=== PATIENT | female | born 1970 | race Caucasian/White ===

== ENCOUNTER 2017-11-11 12:00 | Inpatient (IN) ==
[2017-11-11] MEDS ORDERED: GLUCAGON 1 MG VIAL IM PRN (13:30)
[2017-11-11] MEDS ORDERED: ACETAMINOPHEN 325 MG TABLET PO PRN (13:30)
[2017-11-11] MEDS: INSULIN REGULAR 100 UNIT/ML SUBCUT SCH ×2 (16:41→20:27)
[2017-11-11] MEDS: PIPERACILLIN/TAZOBACTAM 3,375 MG in SODIUM CHLORIDE 0.9% 100 ML IV SCH (17:01)
[2017-11-11] MEDS: SODIUM CHLORIDE 0.45% 1,000 ML IV SCH (17:11)
[2017-11-11] MEDS: GABAPENTIN 400 MG CAPSULE PO SCH ×2 (17:13→20:26)
[2017-11-11] MEDS: MORPHINE 2 MG/1 ML SYRINGE IV PRN ×2 (17:14→23:10)
[2017-11-11] MEDS: INSULIN ASPART PROTAMINE/ASPART 70/30 100 UNIT/ML SUBCUT SCH (20:27)
[2017-11-11] MEDS: DOCUSATE SODIUM 100 MG CAPSULE PO SCH (20:27)
[2017-11-11] MEDS ORDERED: GABAPENTIN 400 MG CAPSULE PO SCH (21:00)
[2017-11-11] MEDS: ZALEPLON 5 MG CAPSULE PO PRN (22:33)
[2017-11-12] MEDS: PIPERACILLIN/TAZOBACTAM 3,375 MG in SODIUM CHLORIDE 0.9% 100 ML IV SCH ×3 (00:15→17:14)
[2017-11-12] MEDS: VANCOMYCIN INJ 1,000 MG in SODIUM CHLORIDE 0.9% 250 ML IV SCH ×2 (04:09→16:32)
[2017-11-12] MEDS: MORPHINE 2 MG/1 ML SYRINGE IV PRN ×4 (05:16→22:01)
[2017-11-12 06:03] LABS: Basophils # 0.1 10*3/uL (0.0-0.2); Basophils % 0.2 % (0.0-0.8); Eosinophils # 0.1 10*3/uL (0.0-0.87); Eosinophils % 0.2 % (0.00-10.9); Hematocrit 29.9 VOL% (35.7-47.0); Hemoglobin 9.9 GM/DL (12.0-16.0); Immature Granulocytes % 1.8 %; Immature Granulocytes Absolute 0.51 #; Lymphocytes # 5.2 10*3/uL (1.4-4.0); Lymphocytes % 17.7 % (21.3-54.2); Mean Corpuscular HGB Conc 33.1 GM/DL (32-36); Mean Corpuscular Hemoglobin 29 PG (27-34); Mean Corpuscular Volume 88.2 FL (87-102); Mean Platelet Volume 10.5 FL (9.6-12.0); Monocytes # 1.7 10*3/uL (0.11-0.8); Monocytes % 5.8 % (1.7-12.7); Neutrophils # 21.6 10*3/uL (1.4-7.4); Neutrophils % 74.3 % (38.7-73.9); Platelet Count 506 T/CUMM (130-400); Red Blood Count 3.39 MC/CUMM (3.8-5.5); Red Cell Distribution Width 14.4 % (9.3-17.3); White Blood Count 29.1 T/CUMM (4-12)
[2017-11-12 06:25] LABS: Anisocytosis 1+
[2017-11-12 06:26] LABS: Howell-Jolly Bodies 1+; Target Cells Slight
[2017-11-12 06:27] LABS: Polychromasia Slight
[2017-11-12 06:31] LABS: Magnesium 1.8 MG/DL (1.8-2.4); Risk Ratio 4.03; VLDL CHOLESTEROL 35.8 MG/DL
[2017-11-12] MEDS: DOCUSATE SODIUM 100 MG CAPSULE PO SCH ×2 (08:14→20:58)
[2017-11-12] MEDS: INSULIN REGULAR 100 UNIT/ML SUBCUT SCH ×4 (08:14→20:59)
[2017-11-12] MEDS: GABAPENTIN 400 MG CAPSULE PO SCH ×3 (08:14→20:59)
[2017-11-12] MEDS: SODIUM CHLORIDE 0.45% 1,000 ML IV SCH ×3 (08:14→22:08)
[2017-11-12] MEDS: PANTOPRAZOLE 40 MG TABLET PO SCH (08:15)
[2017-11-12] MEDS: INSULIN ASPART PROTAMINE/ASPART 70/30 100 UNIT/ML SUBCUT SCH ×2 (08:15→20:59)
[2017-11-12] MEDS: LISINOPRIL 20 MG TABLET PO SCH (08:32)
[2017-11-12] MEDS: HYDROmorphone 2 MG/1 ML VIAL IV PRN ×4 (11:35→11:50)
[2017-11-12] MEDS ORDERED: HYDROmorphone 2 MG/1 ML VIAL ONE (11:36)
[2017-11-12] MEDS ORDERED: ONDANSETRON 4 MG/2 ML VIAL ONE (11:36)
[2017-11-12] MEDS ORDERED: MIDAZOLAM 2 MG/2 ML VIAL ONE (11:40)
[2017-11-12] MEDS ORDERED: ONDANSETRON 4 MG/2 ML VIAL IV PRN (11:40)
[2017-11-12] MEDS ORDERED: PROPOFOL 200 MG/20 ML VIAL IV ONE (11:40)
[2017-11-12] MEDS ORDERED: fentaNYL 100 MCG/2 ML VIAL ONE (11:40)
[2017-11-12] MEDS ORDERED: SEVOFLURANE 1 UNIT/15 MINUTE INH ONE (11:40)
[2017-11-12] MEDS ORDERED: METOCLOPRAMIDE 10 MG/2 ML VIAL ONE (11:41)
[2017-11-12 16:10] LABS: Barbiturates Screen,Urine Negative (Negative); Benzodiazepines Screen,Urine Positive (Negative); Cannabinoid Screen,Urine Negative (Negative); Opiate Screen,Urine Positive (Negative); Phencyclidine Screen,Urine Negative (Negative)
[2017-11-12] MEDS: ZALEPLON 5 MG CAPSULE PO PRN (20:59)
[2017-11-12] MEDS: diphenhydrAMINE CAP 25 MG CAPSULE PO PRN (22:06)
[2017-11-13] MEDS: PIPERACILLIN/TAZOBACTAM 3,375 MG in SODIUM CHLORIDE 0.9% 100 ML IV SCH ×3 (00:57→19:34)
[2017-11-13] MEDS: MORPHINE 2 MG/1 ML SYRINGE IV PRN ×6 (03:17→22:13)
[2017-11-13] MEDS: ONDANSETRON 4 MG/2 ML VIAL IV PRN (03:25)
[2017-11-13 03:32] LABS: Basophils # 0.1 10*3/uL (0.0-0.2); Basophils % 0.4 % (0.0-0.8); Eosinophils # 0.1 10*3/uL (0.0-0.87); Eosinophils % 0.5 % (0.00-10.9); Hematocrit 28.4 VOL% (35.7-47.0); Hemoglobin 9.2 GM/DL (12.0-16.0); Immature Granulocytes % 1.9 %; Immature Granulocytes Absolute 0.51 #; Lymphocytes # 6.6 10*3/uL (1.4-4.0); Lymphocytes % 24.7 % (21.3-54.2); Mean Corpuscular HGB Conc 32.4 GM/DL (32-36); Mean Corpuscular Hemoglobin 29 PG (27-34); Mean Corpuscular Volume 90.4 FL (87-102); Monocytes # 1.7 10*3/uL (0.11-0.8); Monocytes % 6.5 % (1.7-12.7); NRBC # 0.02 10*3/uL; Neutrophils # 17.5 10*3/uL (1.4-7.4); Platelet Count 524 T/CUMM (130-400); Red Blood Count 3.14 MC/CUMM (3.8-5.5); Red Cell Distribution Width 14.7 % (9.3-17.3); White Blood Count 26.6 T/CUMM (4-12)
[2017-11-13 04:01] LABS: Alanine Aminotransferase < 9 U/L (13-56); Alkaline Phosphatase 133 U/L (45-117); Aspartate Amino Transferase 10 U/L (0-37); Blood Urea Nitrogen 8 MG/DL (7-18); Glucose 53 MG/DL (74-106); Magnesium 1.7 MG/DL (1.8-2.4); Osmolality,Calculated 280.8 MOS/KG (273-304); Potassium 3.6 MMOL/L (3.5-5.1); Sodium 144 MMOL/L (136-145); Total Protein 5.9 G/DL (6.4-8.3)
[2017-11-13 04:09] LABS: Band Neutrophils 22 % (0-10); Eosinophils 2 % (0-10); Lymphocytes 25 % (20-55); Segmented Neutrophils 49 % (50-85); Total Cells Counted 100
[2017-11-13 04:10] LABS: Anisocytosis 1+; Poikilocytosis 1+; Target Cells Slight
[2017-11-13 04:11] LABS: Polychromasia Slight
[2017-11-13] MEDS: VANCOMYCIN INJ 1,000 MG in SODIUM CHLORIDE 0.9% 250 ML IV SCH ×2 (05:04→18:17)
[2017-11-13] MEDS: LISINOPRIL 20 MG TABLET PO SCH (09:49)
[2017-11-13] MEDS: DOCUSATE SODIUM 100 MG CAPSULE PO SCH ×2 (09:49→22:06)
[2017-11-13] MEDS: GABAPENTIN 400 MG CAPSULE PO SCH ×3 (09:49→22:06)
[2017-11-13] MEDS: INSULIN REGULAR 100 UNIT/ML SUBCUT SCH ×4 (09:49→22:05)
[2017-11-13] MEDS: INSULIN ASPART PROTAMINE/ASPART 70/30 100 UNIT/ML SUBCUT SCH ×2 (09:49→22:05)
[2017-11-13] MEDS: SODIUM HYPOCHLORITE 0.25% IRRIG 473 ML BOTTLE TOP SCH (09:50)
[2017-11-13] MEDS: SODIUM CHLORIDE 0.45% 1,000 ML IV SCH ×2 (09:57→22:07)
[2017-11-13] MEDS: PANTOPRAZOLE 40 MG TABLET PO SCH (10:23)
[2017-11-13] MEDS ORDERED: MAGNESIUM SULF RIDER 4 GM in PREMIX 1 EACH IV PRN (11:26)
[2017-11-13] MEDS ORDERED: MAGNESIUM SULF RIDER 2 GM in PREMIX 1 EACH IV PRN (11:26)
[2017-11-13] MEDS ORDERED: MAGNESIUM SULF RIDER 2 GM in PREMIX 1 EACH IV ONE (11:34)
[2017-11-13] MEDS: oxyCODONE/ACETAMINOPHEN 5-325 MG TABLET PO PRN ×2 (18:20→23:49)
[2017-11-13] MEDS: ZALEPLON 5 MG CAPSULE PO PRN (22:06)
[2017-11-14] MEDS: PIPERACILLIN/TAZOBACTAM 3,375 MG in SODIUM CHLORIDE 0.9% 100 ML IV SCH ×3 (01:03→16:37)
[2017-11-14] MEDS: MORPHINE 2 MG/1 ML SYRINGE IV PRN ×7 (01:11→21:06)
[2017-11-14] MEDS: oxyCODONE/ACETAMINOPHEN 5-325 MG TABLET PO PRN ×4 (03:18→22:51)
[2017-11-14] MEDS: VANCOMYCIN INJ 1,000 MG in SODIUM CHLORIDE 0.9% 250 ML IV SCH ×2 (04:27→16:16)
[2017-11-14 06:40] LABS: Basophils # 0.1 10*3/uL (0.0-0.2); Basophils % 0.3 % (0.0-0.8); Eosinophils # 0.2 10*3/uL (0.0-0.87); Hematocrit 28.9 VOL% (35.7-47.0); Hemoglobin 9.8 GM/DL (12.0-16.0); Immature Granulocytes % 2.6 %; Immature Granulocytes Absolute 0.62 #; Lymphocytes # 7.3 10*3/uL (1.4-4.0); Lymphocytes % 30.7 % (21.3-54.2); Mean Corpuscular HGB Conc 33.9 GM/DL (32-36); Mean Corpuscular Hemoglobin 30 PG (27-34); Mean Corpuscular Volume 88.1 FL (87-102); Mean Platelet Volume 9.8 FL (9.6-12.0); Monocytes # 1.5 10*3/uL (0.11-0.8); Monocytes % 6.1 % (1.7-12.7); NRBC # 0.02 10*3/uL; Neutrophils # 14.1 10*3/uL (1.4-7.4); Neutrophils % 59.3 % (38.7-73.9); Platelet Count 640 T/CUMM (130-400); Red Blood Count 3.28 MC/CUMM (3.8-5.5); Red Cell Distribution Width 14.6 % (9.3-17.3); White Blood Count 23.7 T/CUMM (4-12)
[2017-11-14 07:16] LABS: Calcium 8.2 MG/DL (8.5-10.1); Osmolality,Calculated 278.1 MOS/KG (273-304); Potassium 3.2 MMOL/L (3.5-5.1)
[2017-11-14 07:39] LABS: Band Neutrophils 2 % (0-10); Eosinophils 3 % (0-10); Hypochromasia 1+; Lymphocytes 22 % (20-55); Microcytosis Slight; Polychromasia Slight; Segmented Neutrophils 64 % (50-85); Target Cells Slight; Total Cells Counted 100
[2017-11-14] MEDS: SODIUM CHLORIDE 0.45% 1,000 ML IV SCH ×2 (08:07→17:57)
[2017-11-14] MEDS: LISINOPRIL 20 MG TABLET PO SCH (08:08)
[2017-11-14] MEDS: INSULIN ASPART PROTAMINE/ASPART 70/30 100 UNIT/ML SUBCUT SCH ×2 (08:08→21:03)
[2017-11-14] MEDS: INSULIN REGULAR 100 UNIT/ML SUBCUT SCH ×4 (08:08→21:03)
[2017-11-14] MEDS: DOCUSATE SODIUM 100 MG CAPSULE PO SCH ×2 (08:09→21:02)
[2017-11-14] MEDS: GABAPENTIN 400 MG CAPSULE PO SCH ×3 (08:09→21:02)
[2017-11-14] MEDS: PANTOPRAZOLE 40 MG TABLET PO SCH (08:09)
[2017-11-14] MEDS: SODIUM HYPOCHLORITE 0.25% IRRIG 473 ML BOTTLE TOP SCH (08:09)
[2017-11-14] MEDS: POTASSIUM CHLORIDE 20 MEQ TABLET PO PRN ×4 (08:30→14:16)
[2017-11-14] MEDS: NICOTINE 21 MG/24 HR PATCH TRANSDERM SCH (12:05)
[2017-11-14] MEDS: diphenhydrAMINE CAP 25 MG CAPSULE PO PRN (21:12)
[2017-11-14] MEDS: ZALEPLON 5 MG CAPSULE PO PRN (22:51)
[2017-11-15] MEDS: MORPHINE 2 MG/1 ML SYRINGE IV PRN ×5 (00:39→23:15)
[2017-11-15] MEDS: PIPERACILLIN/TAZOBACTAM 3,375 MG in SODIUM CHLORIDE 0.9% 100 ML IV SCH ×3 (00:44→16:12)
[2017-11-15] MEDS: DEXTROSE 50% 25 GM/50 ML VIAL IV PRN (01:42)
[2017-11-15] MEDS: VANCOMYCIN INJ 1,000 MG in SODIUM CHLORIDE 0.9% 250 ML IV SCH ×2 (05:21→16:11)
[2017-11-15] MEDS: SODIUM CHLORIDE 0.45% 1,000 ML IV SCH ×2 (07:21→17:45)
[2017-11-15] MEDS: INSULIN REGULAR 100 UNIT/ML SUBCUT SCH ×4 (07:21→20:41)
[2017-11-15] MEDS: DOCUSATE SODIUM 100 MG CAPSULE PO SCH ×2 (08:20→20:05)
[2017-11-15] MEDS: INSULIN ASPART PROTAMINE/ASPART 70/30 100 UNIT/ML SUBCUT SCH ×2 (08:21→20:41)
[2017-11-15] MEDS: SODIUM HYPOCHLORITE 0.25% IRRIG 473 ML BOTTLE TOP SCH (08:21)
[2017-11-15] MEDS: GABAPENTIN 400 MG CAPSULE PO SCH ×3 (08:21→20:05)
[2017-11-15] MEDS: PANTOPRAZOLE 40 MG TABLET PO SCH (08:22)
[2017-11-15] MEDS: LISINOPRIL 20 MG TABLET PO SCH (08:22)
[2017-11-15] MEDS: NICOTINE 21 MG/24 HR PATCH TRANSDERM SCH (08:37)
[2017-11-15] MEDS: hydrALAZINE 20 MG/1 ML VIAL IV PRN (09:07)
[2017-11-15] MEDS ORDERED: BUPIVACAINE 0.25% 50 ML VIAL ONE (10:57)
[2017-11-15] MEDS ORDERED: PROPOFOL 200 MG/20 ML VIAL IV ONE (13:16)
[2017-11-15] MEDS ORDERED: MIDAZOLAM 2 MG/2 ML VIAL ONE (13:16)
[2017-11-15] MEDS ORDERED: DEXAMETHASONE 10 MG/1 ML VIAL ONE (13:16)
[2017-11-15] MEDS ORDERED: fentaNYL 100 MCG/2 ML VIAL ONE (13:16)
[2017-11-15] MEDS ORDERED: ONDANSETRON 4 MG/2 ML VIAL ONE (13:17)
[2017-11-15] MEDS ORDERED: ONDANSETRON 4 MG/2 ML VIAL IV PRN (13:29)
[2017-11-15] MEDS: HYDROmorphone 2 MG/1 ML VIAL IV PRN ×4 (13:36→13:54)
[2017-11-15] MEDS: amLODIPine 5 MG TABLET PO SCH (14:18)
[2017-11-15] MEDS: oxyCODONE/ACETAMINOPHEN 5-325 MG TABLET PO PRN ×2 (14:18→18:13)
[2017-11-15] MEDS: ZALEPLON 5 MG CAPSULE PO PRN (20:42)
[2017-11-15] MEDS: diphenhydrAMINE CAP 25 MG CAPSULE PO PRN (20:42)
[2017-11-16] MEDS: PIPERACILLIN/TAZOBACTAM 3,375 MG in SODIUM CHLORIDE 0.9% 100 ML IV SCH ×3 (01:53→17:43)
[2017-11-16] MEDS: MORPHINE 2 MG/1 ML SYRINGE IV PRN ×7 (02:00→23:31)
[2017-11-16] MEDS: DEXTROSE 50% 25 GM/50 ML VIAL IV PRN ×2 (02:42→12:04)
[2017-11-16] MEDS: oxyCODONE/ACETAMINOPHEN 5-325 MG TABLET PO PRN ×4 (05:49→19:27)
[2017-11-16] MEDS: VANCOMYCIN INJ 1,000 MG in SODIUM CHLORIDE 0.9% 250 ML IV SCH ×2 (06:15→17:44)
[2017-11-16] MEDS: SODIUM CHLORIDE 0.45% 1,000 ML IV SCH ×2 (06:15→18:24)
[2017-11-16 06:23] LABS: Calcium 8.3 MG/DL (8.5-10.1); Potassium 4.1 MMOL/L (3.5-5.1)
[2017-11-16] MEDS: INSULIN REGULAR 100 UNIT/ML SUBCUT SCH ×5 (08:47→21:37)
[2017-11-16] MEDS: INSULIN ASPART PROTAMINE/ASPART 70/30 100 UNIT/ML SUBCUT SCH (09:32)
[2017-11-16] MEDS: PANTOPRAZOLE 40 MG TABLET PO SCH (09:33)
[2017-11-16] MEDS: DOCUSATE SODIUM 100 MG CAPSULE PO SCH ×2 (09:33→21:39)
[2017-11-16] MEDS: GABAPENTIN 400 MG CAPSULE PO SCH ×3 (09:33→20:49)
[2017-11-16] MEDS: LISINOPRIL 20 MG TABLET PO SCH (09:33)
[2017-11-16] MEDS: SODIUM HYPOCHLORITE 0.25% IRRIG 473 ML BOTTLE TOP SCH (09:34)
[2017-11-16] MEDS: amLODIPine 5 MG TABLET PO SCH (09:34)
[2017-11-16] MEDS: NICOTINE 21 MG/24 HR PATCH TRANSDERM SCH (09:34)
[2017-11-16] MEDS: ZALEPLON 5 MG CAPSULE PO PRN (20:52)
[2017-11-16] MEDS ORDERED: VANCOMYCIN INJ 1,000 MG in SODIUM CHLORIDE 0.9% 250 ML IV SCH (23:00)
[2017-11-17] MEDS: PIPERACILLIN/TAZOBACTAM 3,375 MG in SODIUM CHLORIDE 0.9% 100 ML IV SCH ×2 (01:10→10:01)
[2017-11-17] MEDS: oxyCODONE/ACETAMINOPHEN 5-325 MG TABLET PO PRN ×2 (01:17→11:44)
[2017-11-17] MEDS: hydrALAZINE 20 MG/1 ML VIAL IV PRN (02:21)
[2017-11-17] MEDS: MORPHINE 2 MG/1 ML SYRINGE IV PRN ×5 (02:23→16:59)
[2017-11-17 06:20] LABS: Basophils % 0.3 % (0.0-0.8); Eosinophils # 0.2 10*3/uL (0.0-0.87); Eosinophils % 1.3 % (0.00-10.9); Hematocrit 26.9 VOL% (35.7-47.0); Hemoglobin 8.7 GM/DL (12.0-16.0); Immature Granulocytes Absolute 0.13 #; Lymphocytes # 4.6 10*3/uL (1.4-4.0); Lymphocytes % 35.9 % (21.3-54.2); Mean Corpuscular HGB Conc 32.3 GM/DL (32-36); Mean Corpuscular Hemoglobin 30 PG (27-34); Mean Corpuscular Volume 91.2 FL (87-102); Mean Platelet Volume 9.2 FL (9.6-12.0); Monocytes # 0.6 10*3/uL (0.11-0.8); Monocytes % 4.3 % (1.7-12.7); Neutrophils # 7.4 10*3/uL (1.4-7.4); Neutrophils % 57.2 % (38.7-73.9); Platelet Count 776 T/CUMM (130-400); Red Blood Count 2.95 MC/CUMM (3.8-5.5); Red Cell Distribution Width 14.6 % (9.3-17.3); White Blood Count 12.9 T/CUMM (4-12)
[2017-11-17 06:45] LABS: Calcium 8.4 MG/DL (8.5-10.1); Osmolality,Calculated 279.7 MOS/KG (273-304); Potassium 4.8 MMOL/L (3.5-5.1)
[2017-11-17] MEDS: INSULIN ASPART PROTAMINE/ASPART 70/30 100 UNIT/ML SUBCUT SCH ×2 (08:35→16:59)
[2017-11-17] MEDS: INSULIN REGULAR 100 UNIT/ML SUBCUT SCH ×4 (08:35→20:51)
[2017-11-17] MEDS: LISINOPRIL 20 MG TABLET PO SCH (08:36)
[2017-11-17] MEDS: GABAPENTIN 400 MG CAPSULE PO SCH ×3 (08:36→20:51)
[2017-11-17] MEDS: amLODIPine 5 MG TABLET PO SCH (08:36)
[2017-11-17] MEDS: DOCUSATE SODIUM 100 MG CAPSULE PO SCH ×2 (08:37→21:31)
[2017-11-17] MEDS: PANTOPRAZOLE 40 MG TABLET PO SCH (08:37)
[2017-11-17] MEDS: NICOTINE 21 MG/24 HR PATCH TRANSDERM SCH (08:37)
[2017-11-17] MEDS: SODIUM HYPOCHLORITE 0.25% IRRIG 473 ML BOTTLE TOP SCH (10:01)
[2017-11-17] MEDS: SODIUM CHLORIDE 0.45% 1,000 ML IV SCH (10:01)
[2017-11-17] MEDS ORDERED: LOPERAMIDE 2 MG CAPSULE PO PRN (10:24)
[2017-11-17] MEDS: oxyCODONE/ACETAMINOPHEN 5-325 MG TABLET PO SCH ×2 (17:59→20:50)
[2017-11-17] MEDS: HYDROmorphone 2 MG/1 ML VIAL IV PRN ×2 (18:03→22:14)
[2017-11-17] MEDS: LEVOFLOXACIN INJ 750 MG in PREMIX 1 EACH IV SCH (18:50)
[2017-11-17] MEDS: ONDANSETRON 4 MG/2 ML VIAL IV PRN (18:50)
[2017-11-17] MEDS: ZALEPLON 5 MG CAPSULE PO PRN (22:14)
[2017-11-18] MEDS: oxyCODONE/ACETAMINOPHEN 5-325 MG TABLET PO SCH ×6 (01:18→23:11)
[2017-11-18] MEDS: HYDROmorphone 2 MG/1 ML VIAL IV PRN ×4 (02:21→20:43)
[2017-11-18 06:53] LABS: Basophils # 0.1 10*3/uL (0.0-0.2); Basophils % 0.3 % (0.0-0.8); Eosinophils # 0.2 10*3/uL (0.0-0.87); Hematocrit 28.8 VOL% (35.7-47.0); Hemoglobin 9.2 GM/DL (12.0-16.0); Immature Granulocytes % 1.1 %; Immature Granulocytes Absolute 0.18 #; Lymphocytes # 4.4 10*3/uL (1.4-4.0); Lymphocytes % 26.9 % (21.3-54.2); Mean Corpuscular HGB Conc 31.9 GM/DL (32-36); Mean Corpuscular Hemoglobin 30 PG (27-34); Mean Corpuscular Volume 92.9 FL (87-102); Mean Platelet Volume 9.2 FL (9.6-12.0); Monocytes # 0.7 10*3/uL (0.11-0.8); Monocytes % 4.2 % (1.7-12.7); Neutrophils # 10.8 10*3/uL (1.4-7.4); Neutrophils % 66.5 % (38.7-73.9); Platelet Count 880 T/CUMM (130-400); Red Cell Distribution Width 14.8 % (9.3-17.3); White Blood Count 16.2 T/CUMM (4-12)
[2017-11-18] MEDS: INSULIN ASPART PROTAMINE/ASPART 70/30 100 UNIT/ML SUBCUT SCH ×2 (08:51→16:20)
[2017-11-18] MEDS: LISINOPRIL 20 MG TABLET PO SCH (08:52)
[2017-11-18] MEDS: INSULIN REGULAR 100 UNIT/ML SUBCUT SCH ×4 (08:52→20:48)
[2017-11-18] MEDS: GABAPENTIN 400 MG CAPSULE PO SCH ×3 (08:53→20:41)
[2017-11-18] MEDS: PANTOPRAZOLE 40 MG TABLET PO SCH (08:53)
[2017-11-18] MEDS: amLODIPine 5 MG TABLET PO SCH (08:53)
[2017-11-18] MEDS: DOCUSATE SODIUM 100 MG CAPSULE PO SCH ×2 (09:02→20:41)
[2017-11-18] MEDS: SODIUM HYPOCHLORITE 0.25% IRRIG 473 ML BOTTLE TOP SCH (09:03)
[2017-11-18] MEDS: NICOTINE 21 MG/24 HR PATCH TRANSDERM SCH (09:03)
[2017-11-18] MEDS: LEVOFLOXACIN INJ 750 MG in PREMIX 1 EACH IV SCH (13:45)
[2017-11-18] MEDS: ONDANSETRON 4 MG/2 ML VIAL IV PRN (23:03)
[2017-11-18] MEDS: ZALEPLON 5 MG CAPSULE PO PRN (23:59)
[2017-11-19] MEDS: HYDROmorphone 2 MG/1 ML VIAL IV PRN ×7 (01:00→21:51)
[2017-11-19] MEDS: oxyCODONE/ACETAMINOPHEN 5-325 MG TABLET PO SCH ×7 (05:33→23:39)
[2017-11-19 05:42] LABS: Basophils % 0.3 % (0.0-0.8); Eosinophils # 0.1 10*3/uL (0.0-0.87); Eosinophils % 0.9 % (0.00-10.9); Hematocrit 27.8 VOL% (35.7-47.0); Immature Granulocytes % 0.7 %; Lymphocytes # 4.4 10*3/uL (1.4-4.0); Lymphocytes % 32.4 % (21.3-54.2); Mean Corpuscular HGB Conc 32.4 GM/DL (32-36); Mean Corpuscular Hemoglobin 29 PG (27-34); Mean Corpuscular Volume 90.6 FL (87-102); Monocytes # 0.6 10*3/uL (0.11-0.8); Monocytes % 4.3 % (1.7-12.7); Neutrophils # 8.3 10*3/uL (1.4-7.4); Neutrophils % 61.4 % (38.7-73.9); Platelet Count 944 T/CUMM (130-400); Red Blood Count 3.07 MC/CUMM (3.8-5.5); Red Cell Distribution Width 14.7 % (9.3-17.3); White Blood Count 13.6 T/CUMM (4-12)
[2017-11-19] MEDS ORDERED: BUPIVACAINE 0.25% 50 ML VIAL ONE (08:00)
[2017-11-19] MEDS: INSULIN ASPART PROTAMINE/ASPART 70/30 100 UNIT/ML SUBCUT SCH ×2 (08:11→16:42)
[2017-11-19] MEDS: INSULIN REGULAR 100 UNIT/ML SUBCUT SCH ×4 (08:11→21:53)
[2017-11-19] MEDS ORDERED: fentaNYL 100 MCG/2 ML VIAL ONE (08:38)
[2017-11-19] MEDS ORDERED: MIDAZOLAM 2 MG/2 ML VIAL ONE (08:38)
[2017-11-19] MEDS ORDERED: PROPOFOL 200 MG/20 ML VIAL IV ONE (08:38)
[2017-11-19] MEDS ORDERED: ONDANSETRON 4 MG/2 ML VIAL IV PRN (08:42)
[2017-11-19] MEDS ORDERED: ONDANSETRON 4 MG/2 ML VIAL ONE (08:46)
[2017-11-19] MEDS ORDERED: HYDROmorphone 2 MG/1 ML VIAL ONE (08:46)
[2017-11-19] MEDS ORDERED: DEXTROSE 50% 25 GM/50 ML VIAL IV PRN (09:23)
[2017-11-19] MEDS: amLODIPine 5 MG TABLET PO SCH (09:44)
[2017-11-19] MEDS: LISINOPRIL 20 MG TABLET PO SCH (09:44)
[2017-11-19] MEDS: GABAPENTIN 400 MG CAPSULE PO SCH ×3 (09:44→21:50)
[2017-11-19] MEDS: PANTOPRAZOLE 40 MG TABLET PO SCH (09:44)
[2017-11-19] MEDS: NICOTINE 21 MG/24 HR PATCH TRANSDERM SCH (09:46)
[2017-11-19] MEDS: SODIUM HYPOCHLORITE 0.25% IRRIG 473 ML BOTTLE TOP SCH (09:46)
[2017-11-19] MEDS: DOCUSATE SODIUM 100 MG CAPSULE PO SCH ×2 (09:46→21:51)
[2017-11-19] MEDS: LACTATED RINGERS 1,000 ML IV SCH (09:47)
[2017-11-19] MEDS: LEVOFLOXACIN INJ 750 MG in PREMIX 1 EACH IV SCH (14:26)
[2017-11-19] MEDS: ONDANSETRON 4 MG/2 ML VIAL IV PRN (18:22)
[2017-11-19] MEDS: ZALEPLON 5 MG CAPSULE PO PRN (21:59)
[2017-11-20] MEDS: HYDROmorphone 2 MG/1 ML VIAL IV PRN ×5 (02:18→22:07)
[2017-11-20] MEDS: oxyCODONE/ACETAMINOPHEN 5-325 MG TABLET PO SCH ×6 (04:12→20:30)
[2017-11-20] MEDS: LACTATED RINGERS 1,000 ML IV SCH (08:22)
[2017-11-20] MEDS: INSULIN REGULAR 100 UNIT/ML SUBCUT SCH ×4 (08:22→21:39)
[2017-11-20] MEDS: INSULIN ASPART PROTAMINE/ASPART 70/30 100 UNIT/ML SUBCUT SCH ×2 (08:23→17:38)
[2017-11-20] MEDS: SODIUM HYPOCHLORITE 0.25% IRRIG 473 ML BOTTLE TOP SCH (08:24)
[2017-11-20] MEDS: PANTOPRAZOLE 40 MG TABLET PO SCH (08:24)
[2017-11-20] MEDS: GABAPENTIN 400 MG CAPSULE PO SCH ×3 (08:24→20:26)
[2017-11-20] MEDS: LISINOPRIL 20 MG TABLET PO SCH (08:25)
[2017-11-20] MEDS: amLODIPine 5 MG TABLET PO SCH (08:25)
[2017-11-20] MEDS: NICOTINE 21 MG/24 HR PATCH TRANSDERM SCH (08:25)
[2017-11-20] MEDS: DOCUSATE SODIUM 100 MG CAPSULE PO SCH ×2 (08:25→20:27)
[2017-11-20] MEDS: diphenhydrAMINE CAP 25 MG CAPSULE PO PRN (14:30)
[2017-11-20] MEDS: LEVOFLOXACIN INJ 750 MG in PREMIX 1 EACH IV SCH (14:30)
[2017-11-20] MEDS: ZALEPLON 5 MG CAPSULE PO PRN (23:11)
[2017-11-21] MEDS: oxyCODONE/ACETAMINOPHEN 5-325 MG TABLET PO SCH ×5 (02:02→21:13)
[2017-11-21] MEDS: HYDROmorphone 2 MG/1 ML VIAL IV PRN ×3 (03:27→17:51)
[2017-11-21] MEDS: INSULIN REGULAR 100 UNIT/ML SUBCUT SCH ×4 (08:09→21:13)
[2017-11-21] MEDS: INSULIN ASPART PROTAMINE/ASPART 70/30 100 UNIT/ML SUBCUT SCH ×2 (08:23→17:50)
[2017-11-21] MEDS: LISINOPRIL 20 MG TABLET PO SCH (08:24)
[2017-11-21] MEDS: GABAPENTIN 400 MG CAPSULE PO SCH ×3 (08:24→20:56)
[2017-11-21] MEDS: PANTOPRAZOLE 40 MG TABLET PO SCH (08:24)
[2017-11-21] MEDS: amLODIPine 5 MG TABLET PO SCH (08:24)
[2017-11-21] MEDS: SODIUM HYPOCHLORITE 0.25% IRRIG 473 ML BOTTLE TOP SCH (08:38)
[2017-11-21] MEDS: NICOTINE 21 MG/24 HR PATCH TRANSDERM SCH (08:46)
[2017-11-21] MEDS: DOCUSATE SODIUM 100 MG CAPSULE PO SCH ×2 (08:46→20:56)
[2017-11-21] MEDS: LACTATED RINGERS 1,000 ML IV SCH (10:29)
[2017-11-21] MEDS: LEVOFLOXACIN INJ 750 MG in PREMIX 1 EACH IV SCH (13:52)
[2017-11-21] MEDS: ZALEPLON 5 MG CAPSULE PO PRN (20:56)
[2017-11-21] MEDS: HYDROCORTISONE 0.5% CREAM 28.35 GM TUBE TOP SCH (20:59)
[2017-11-22] MEDS: HYDROmorphone 2 MG/1 ML VIAL IV PRN ×4 (01:51→19:03)
[2017-11-22] MEDS: oxyCODONE/ACETAMINOPHEN 5-325 MG TABLET PO SCH ×4 (04:58→21:12)
[2017-11-22] MEDS: INSULIN ASPART PROTAMINE/ASPART 70/30 100 UNIT/ML SUBCUT SCH ×2 (08:54→16:58)
[2017-11-22] MEDS: amLODIPine 5 MG TABLET PO SCH (08:55)
[2017-11-22] MEDS: INSULIN REGULAR 100 UNIT/ML SUBCUT SCH ×4 (08:55→20:57)
[2017-11-22] MEDS: LISINOPRIL 20 MG TABLET PO SCH (08:55)
[2017-11-22] MEDS: GABAPENTIN 400 MG CAPSULE PO SCH ×3 (08:56→20:31)
[2017-11-22] MEDS: DOCUSATE SODIUM 100 MG CAPSULE PO SCH ×2 (08:56→20:31)
[2017-11-22] MEDS: NICOTINE 21 MG/24 HR PATCH TRANSDERM SCH (09:00)
[2017-11-22] MEDS: SODIUM HYPOCHLORITE 0.25% IRRIG 473 ML BOTTLE TOP SCH (09:00)
[2017-11-22] MEDS: HYDROCORTISONE 0.5% CREAM 28.35 GM TUBE TOP SCH ×2 (09:00→20:31)
[2017-11-22] MEDS: PANTOPRAZOLE 40 MG TABLET PO SCH (10:00)
[2017-11-22] MEDS: LEVOFLOXACIN 750 MG TABLET PO SCH (11:36)
[2017-11-22] MEDS ORDERED: HYDROmorphone 2 MG/1 ML VIAL IV ONE (16:49)
[2017-11-22] MEDS: ONDANSETRON 4 MG/2 ML VIAL IV PRN (17:59)
[2017-11-22] MEDS: ZALEPLON 5 MG CAPSULE PO PRN (20:31)
[2017-11-23] MEDS: HYDROmorphone 2 MG/1 ML VIAL IV PRN ×4 (00:48→18:44)
[2017-11-23] MEDS: oxyCODONE/ACETAMINOPHEN 5-325 MG TABLET PO SCH ×4 (04:01→21:15)
[2017-11-23] MEDS: INSULIN ASPART PROTAMINE/ASPART 70/30 100 UNIT/ML SUBCUT SCH ×2 (08:49→15:41)
[2017-11-23] MEDS: INSULIN REGULAR 100 UNIT/ML SUBCUT SCH ×4 (08:50→20:42)
[2017-11-23] MEDS: LEVOFLOXACIN 750 MG TABLET PO SCH (08:51)
[2017-11-23] MEDS: LISINOPRIL 20 MG TABLET PO SCH (08:51)
[2017-11-23] MEDS: amLODIPine 5 MG TABLET PO SCH (08:51)
[2017-11-23] MEDS: PANTOPRAZOLE 40 MG TABLET PO SCH (08:51)
[2017-11-23] MEDS: GABAPENTIN 400 MG CAPSULE PO SCH ×3 (08:51→21:16)
[2017-11-23] MEDS: DOCUSATE SODIUM 100 MG CAPSULE PO SCH ×2 (08:52→21:16)
[2017-11-23] MEDS: HYDROCORTISONE 0.5% CREAM 28.35 GM TUBE TOP SCH ×2 (11:40→21:16)
[2017-11-23] MEDS: SODIUM HYPOCHLORITE 0.25% IRRIG 473 ML BOTTLE TOP SCH (11:40)
[2017-11-23] MEDS: NICOTINE 21 MG/24 HR PATCH TRANSDERM SCH (11:41)
[2017-11-23] MEDS: diphenhydrAMINE CAP 25 MG CAPSULE PO PRN (15:42)
[2017-11-24] MEDS: ZALEPLON 5 MG CAPSULE PO PRN (00:20)
[2017-11-24] MEDS: HYDROmorphone 2 MG/1 ML VIAL IV PRN ×2 (00:20→06:19)
[2017-11-24] MEDS: oxyCODONE/ACETAMINOPHEN 5-325 MG TABLET PO SCH ×2 (03:41→09:28)
[2017-11-24] MEDS: amLODIPine 5 MG TABLET PO SCH (09:29)
[2017-11-24] MEDS: LISINOPRIL 20 MG TABLET PO SCH (09:29)
[2017-11-24] MEDS: GABAPENTIN 400 MG CAPSULE PO SCH (09:29)
[2017-11-24] MEDS: PANTOPRAZOLE 40 MG TABLET PO SCH (09:29)
[2017-11-24] MEDS: DOCUSATE SODIUM 100 MG CAPSULE PO SCH (09:30)
[2017-11-24] MEDS: LEVOFLOXACIN 750 MG TABLET PO SCH (09:30)
[2017-11-24] MEDS: HYDROCORTISONE 0.5% CREAM 28.35 GM TUBE TOP SCH (09:30)
[2017-11-24] MEDS: NICOTINE 21 MG/24 HR PATCH TRANSDERM SCH (09:30)
[2017-11-24] MEDS: SODIUM HYPOCHLORITE 0.25% IRRIG 473 ML BOTTLE TOP SCH (09:30)
[2017-11-24] MEDS: INSULIN REGULAR 100 UNIT/ML SUBCUT SCH (10:48)
[2017-11-24] MEDS: INSULIN ASPART PROTAMINE/ASPART 70/30 100 UNIT/ML SUBCUT SCH (10:48)
[2017-11-24 12:34] VITALS: BP 169/105
== END 2017-11-24 11:41 | disposition home health service (06) | DRG 617 ==
LOC: N.5E 15:11 → SUATTDRO 15:11
PROVIDERS: ADMIT Internal Medicine Infectious Disease; ATTEND Internal Medicine

== ENCOUNTER 2018-03-19 20:38 | Inpatient (IN) ==
[2018-03-19] MEDS ORDERED: VANCOMYCIN INJ 1,000 MG in SODIUM CHLORIDE 0.9% 250 ML IV STA (21:59)
[2018-03-19 23:24] LABS: Basophils # 0.1 10*3/uL (0.0-0.2); Basophils % 0.6 % (0.0-0.8); Eosinophils # 0.1 10*3/uL (0.0-0.87); Eosinophils % 0.6 % (0.00-10.9); Hematocrit 34.2 VOL% (35.7-47.0); Hemoglobin 11.6 GM/DL (12.0-16.0); Immature Granulocytes % 0.4 %; Immature Granulocytes Absolute 0.07 #; Lymphocytes # 5.6 10*3/uL (1.4-4.0); Lymphocytes % 33.6 % (21.3-54.2); Mean Corpuscular HGB Conc 33.9 GM/DL (32-36); Mean Corpuscular Hemoglobin 29 PG (27-34); Mean Platelet Volume 10.5 FL (9.6-12.0); Monocytes # 0.5 10*3/uL (0.11-0.8); Neutrophils # 10.3 10*3/uL (1.4-7.4); Neutrophils % 61.8 % (38.7-73.9); Platelet Count 581 T/CUMM (130-400); Red Blood Count 4.07 MC/CUMM (3.8-5.5); Red Cell Distribution Width 15.9 % (9.3-17.3); White Blood Count 16.7 T/CUMM (4-12)
[2018-03-19 23:33] LABS: PT Patient Result 10.4 SECS; Partial Thromboplastin Time 29.4 SECS (0-40)
[2018-03-19 23:37] LABS: Apearance,Urine CLEAR (Clear); Bilirubin,Urine Negative (Negative); Blood, Urine Small mg/dL (Negative); Glucose,Urine (UA) >=500 mg/dL (Negative); Ketones,Urine Negative (Negative); Nitrite,Urine Negative (Negative); Protein,Urine 100 MG/DL; RBC,Urine 2 /HPF (0-4); Squamous Epithelial Cell,Urine Occasional /HPF (0-10); Urine Color Straw (Yellow); Urine Specific Gravity 1.023 (1.001-1.035); Urine Urobilinogen < 2.0 EU/DL (0.2-1.0); WBC,Urine 1 /HPF (0-6)
[2018-03-19 23:48] LABS: Alanine Aminotransferase 14 U/L (13-56); Albumin 3.2 G/DL (3.4-5.0); Alkaline Phosphatase 210 U/L (45-117); Aspartate Amino Transferase 10 U/L (0-37); Bilirubin,Total < 0.39 MG/DL (0.2-1.0); Blood Urea Nitrogen 27 MG/DL (7-18); Calcium 8.8 MG/DL (8.5-10.1); Osmolality,Calculated 291.7 MOS/KG (273-304); Potassium 4.5 MMOL/L (3.5-5.1); Sodium 131 MMOL/L (136-145); Total Protein 7.7 G/DL (6.4-8.3)
[2018-03-19] MEDS ORDERED: HYDROmorphone 2 MG/1 ML VIAL IV STA (23:56)
[2018-03-19] MEDS ORDERED: hydrALAZINE 20 MG/1 ML VIAL IV STA (23:56)
[2018-03-19 23:57] LABS: Glucose 542 MG/DL (74-106)
[2018-03-19] MEDS ORDERED: INSULIN REGULAR 100 UNIT/ML IV STA (23:59)
[2018-03-19] MEDS ORDERED: INSULIN REGULAR 100 UNIT/ML SUBCUT STA (23:59)
[2018-03-20] MEDS ORDERED: SODIUM CHLORIDE 0.9% 2,000 ML IV STA
[2018-03-20 00:31] LABS: Sedimentation Rate-Westergren 65 MM/HR (0-20)
[2018-03-20 00:46] LABS: Barbiturates Screen,Urine Negative (Negative); Benzodiazepines Screen,Urine Negative (Negative); Cannabinoid Screen,Urine Negative (Negative); Opiate Screen,Urine Negative (Negative); Phencyclidine Screen,Urine Negative (Negative)
[2018-03-20] MEDS ORDERED: NICOTINE 21 MG/24 HR PATCH TRANSDERM PRN (01:54)
[2018-03-20] MEDS ORDERED: ONDANSETRON 4 MG/2 ML VIAL IV PRN ×2 (01:54→11:40)
[2018-03-20] MEDS ORDERED: GLUCAGON 1 MG VIAL IM PRN (01:54)
[2018-03-20] MEDS ORDERED: DEXTROSE 50% 25 GM/50 ML VIAL IV PRN (01:54)
[2018-03-20] MEDS ORDERED: cloNIDine 0.1 MG TABLET PO PRN (01:54)
[2018-03-20] MEDS: amLODIPine 5 MG TABLET PO SCH ×2 (02:37→08:21)
[2018-03-20] MEDS: SODIUM CHLORIDE 0.9% 1,000 ML IV SCH ×2 (02:38→15:53)
[2018-03-20] MEDS: LISINOPRIL 20 MG TABLET PO SCH ×2 (02:38→08:21)
[2018-03-20] MEDS: INSULIN ASPART PROTAMINE/ASPART 70/30 100 UNIT/ML SUBCUT SCH ×3 (03:08→17:03)
[2018-03-20] MEDS: MORPHINE 4 MG/1 ML VIAL IV PRN ×3 (04:11→18:10)
[2018-03-20] MEDS: oxyCODONE/ACETAMINOPHEN 5-325 MG TABLET PO PRN ×3 (06:43→22:06)
[2018-03-20 07:53] LABS: Alanine Aminotransferase 14 U/L (13-56); Alkaline Phosphatase 172 U/L (45-117); Aspartate Amino Transferase 9 U/L (0-37); Bilirubin,Total < 0.39 MG/DL (0.2-1.0); Blood Urea Nitrogen 22 MG/DL (7-18); Calcium 9.1 MG/DL (8.5-10.1); Glucose 76 MG/DL (74-106); Osmolality,Calculated 278.5 MOS/KG (273-304); Potassium 4.4 MMOL/L (3.5-5.1); Sodium 139 MMOL/L (136-145); Total Protein 6.8 G/DL (6.4-8.3)
[2018-03-20] MEDS: ENOXAPARIN 40 MG/0.4 ML SYRINGE SUBCUT SCH (08:21)
[2018-03-20] MEDS: DOCUSATE SODIUM 100 MG CAPSULE PO SCH ×2 (08:21→22:06)
[2018-03-20] MEDS: GABAPENTIN 400 MG CAPSULE PO SCH ×3 (08:21→22:06)
[2018-03-20] MEDS: INSULIN REGULAR 100 UNIT/ML SUBCUT SCH ×5 (08:21→22:10)
[2018-03-20] MEDS ORDERED: DIAZEPAM 5 MG TABLET PO ONE (09:40)
[2018-03-20 11:08] LABS: Basophils # 0.1 10*3/uL (0.0-0.2); Basophils % 0.5 % (0.0-0.8); Eosinophils # 0.3 10*3/uL (0.0-0.87); Eosinophils % 1.7 % (0.00-10.9); Hematocrit 33.9 VOL% (35.7-47.0); Hemoglobin 11.1 GM/DL (12.0-16.0); Immature Granulocytes % 0.4 %; Immature Granulocytes Absolute 0.06 #; Lymphocytes # 5.1 10*3/uL (1.4-4.0); Lymphocytes % 31.6 % (21.3-54.2); Mean Corpuscular HGB Conc 32.7 GM/DL (32-36); Mean Corpuscular Hemoglobin 28 PG (27-34); Mean Corpuscular Volume 86.3 FL (87-102); Mean Platelet Volume 10.3 FL (9.6-12.0); Monocytes # 0.7 10*3/uL (0.11-0.8); Monocytes % 4.2 % (1.7-12.7); Neutrophils # 9.9 10*3/uL (1.4-7.4); Neutrophils % 61.6 % (38.7-73.9); Platelet Count 561 T/CUMM (130-400); Red Blood Count 3.93 MC/CUMM (3.8-5.5); Red Cell Distribution Width 16.4 % (9.3-17.3); White Blood Count 16.1 T/CUMM (4-12)
[2018-03-20] MEDS ORDERED: HYDROmorphone 2 MG/1 ML VIAL ONE (11:39)
[2018-03-20] MEDS ORDERED: ONDANSETRON 4 MG/2 ML VIAL ONE ×2 (11:40→15:05)
[2018-03-20] MEDS: HYDROmorphone 2 MG/1 ML VIAL IV PRN ×4 (11:40→11:55)
[2018-03-20] MEDS ORDERED: LORazepam 2 MG/1 ML VIAL ONE (11:46)
[2018-03-20] MEDS ORDERED: LORazepam 2 MG/1 ML VIAL IV ONE (11:47)
[2018-03-20] MEDS ORDERED: MORPHINE PCA 30 MG/30 ML SYRINGE IV ONE (12:09)
[2018-03-20] MEDS ORDERED: NALOXONE 0.4 MG/ML VIAL IV PRN (12:20)
[2018-03-20] MEDS: MORPHINE PCA 30 MG/30 ML SYRINGE IV SCH (12:26)
[2018-03-20] MEDS: VANCOMYCIN INJ 1,000 MG in SODIUM CHLORIDE 0.9% 250 ML IV SCH (12:55)
[2018-03-20] MEDS ORDERED: PROPOFOL 200 MG/20 ML VIAL IV ONE (15:05)
[2018-03-20] MEDS ORDERED: fentaNYL 100 MCG/2 ML VIAL ONE (15:05)
[2018-03-20] MEDS ORDERED: SEVOFLURANE 1 UNIT/15 MINUTE INH ONE (15:05)
[2018-03-20] MEDS ORDERED: PHENYLEPHRINE 1 MG/10 ML SYRINGE IV ONE (15:06)
[2018-03-20] MEDS ORDERED: MIDAZOLAM 2 MG/2 ML VIAL ONE (15:09)
[2018-03-21] MEDS: MORPHINE PCA 30 MG/30 ML SYRINGE IV SCH (00:15)
[2018-03-21] MEDS: VANCOMYCIN INJ 1,000 MG in SODIUM CHLORIDE 0.9% 250 ML IV SCH ×2 (00:16→14:27)
[2018-03-21] MEDS: SODIUM CHLORIDE 0.9% 1,000 ML IV SCH ×4 (00:24→19:44)
[2018-03-21] MEDS: oxyCODONE/ACETAMINOPHEN 5-325 MG TABLET PO PRN (04:22)
[2018-03-21 05:41] LABS: Basophils # 0.1 10*3/uL (0.0-0.2); Basophils % 0.4 % (0.0-0.8); Eosinophils # 0.2 10*3/uL (0.0-0.87); Eosinophils % 1.2 % (0.00-10.9); Hemoglobin 10.1 GM/DL (12.0-16.0); Immature Granulocytes % 0.5 %; Lymphocytes # 6.2 10*3/uL (1.4-4.0); Mean Corpuscular HGB Conc 32.6 GM/DL (32-36); Mean Corpuscular Hemoglobin 28 PG (27-34); Mean Corpuscular Volume 86.1 FL (87-102); Mean Platelet Volume 10.5 FL (9.6-12.0); Monocytes % 5.2 % (1.7-12.7); Neutrophils # 11.2 10*3/uL (1.4-7.4); Neutrophils % 59.7 % (38.7-73.9); Platelet Count 522 T/CUMM (130-400); Red Cell Distribution Width 16.5 % (9.3-17.3); White Blood Count 18.8 T/CUMM (4-12)
[2018-03-21 06:07] LABS: Calcium 8.3 MG/DL (8.5-10.1); Osmolality,Calculated 285.5 MOS/KG (273-304); Potassium 4.8 MMOL/L (3.5-5.1)
[2018-03-21] MEDS ORDERED: MORPHINE PCA 30 MG/30 ML SYRINGE IV SCH (09:32)
[2018-03-21] MEDS: INSULIN REGULAR 100 UNIT/ML SUBCUT SCH ×4 (10:05→20:49)
[2018-03-21] MEDS: INSULIN ASPART PROTAMINE/ASPART 70/30 100 UNIT/ML SUBCUT SCH ×2 (10:17→17:38)
[2018-03-21] MEDS: ENOXAPARIN 40 MG/0.4 ML SYRINGE SUBCUT SCH (10:17)
[2018-03-21] MEDS: amLODIPine 5 MG TABLET PO SCH (10:19)
[2018-03-21] MEDS: LISINOPRIL 20 MG TABLET PO SCH (10:19)
[2018-03-21] MEDS: DOCUSATE SODIUM 100 MG CAPSULE PO SCH ×2 (10:19→20:49)
[2018-03-21] MEDS: GABAPENTIN 400 MG CAPSULE PO SCH ×3 (10:19→20:49)
[2018-03-21] MEDS: HYDROmorphone 2 MG/1 ML VIAL IV SCH ×3 (12:10→16:23)
[2018-03-21] MEDS: HYDROmorphone 2 MG/1 ML VIAL IV PRN ×3 (17:40→22:59)
[2018-03-21] MEDS: traZODone 50 MG TABLET PO PRN (20:49)
[2018-03-22] MEDS: HYDROmorphone 2 MG/1 ML VIAL IV SCH (00:39)
[2018-03-22] MEDS: VANCOMYCIN INJ 1,000 MG in SODIUM CHLORIDE 0.9% 250 ML IV SCH ×2 (01:17→14:45)
[2018-03-22] MEDS: HYDROmorphone 2 MG/1 ML VIAL IV PRN ×10 (01:17→22:16)
[2018-03-22] MEDS: oxyCODONE/ACETAMINOPHEN 5-325 MG TABLET PO PRN ×3 (02:56→20:58)
[2018-03-22 05:32] LABS: Basophils # 0.1 10*3/uL (0.0-0.2); Basophils % 0.7 % (0.0-0.8); Eosinophils # 0.3 10*3/uL (0.0-0.87); Eosinophils % 1.7 % (0.00-10.9); Hematocrit 26.7 VOL% (35.7-47.0); Hemoglobin 8.6 GM/DL (12.0-16.0); Immature Granulocytes % 0.6 %; Immature Granulocytes Absolute 0.09 #; Lymphocytes # 5.8 10*3/uL (1.4-4.0); Lymphocytes % 35.6 % (21.3-54.2); Mean Corpuscular HGB Conc 32.2 GM/DL (32-36); Mean Corpuscular Hemoglobin 28 PG (27-34); Mean Platelet Volume 10.1 FL (9.6-12.0); Monocytes # 1.1 10*3/uL (0.11-0.8); Monocytes % 6.9 % (1.7-12.7); NRBC # 0.02 10*3/uL; Neutrophils # 8.9 10*3/uL (1.4-7.4); Neutrophils % 54.5 % (38.7-73.9); Platelet Count 433 T/CUMM (130-400); Red Blood Count 3.07 MC/CUMM (3.8-5.5); Red Cell Distribution Width 16.7 % (9.3-17.3); White Blood Count 16.3 T/CUMM (4-12)
[2018-03-22] MEDS: SODIUM CHLORIDE 0.9% 1,000 ML IV SCH ×3 (06:01→20:07)
[2018-03-22 06:03] LABS: Calcium 8.1 MG/DL (8.5-10.1); Osmolality,Calculated 285.3 MOS/KG (273-304); Potassium 4.7 MMOL/L (3.5-5.1)
[2018-03-22] MEDS: GABAPENTIN 400 MG CAPSULE PO SCH ×3 (08:39→20:07)
[2018-03-22] MEDS: LISINOPRIL 20 MG TABLET PO SCH (08:39)
[2018-03-22] MEDS: amLODIPine 5 MG TABLET PO SCH (08:39)
[2018-03-22] MEDS: DOCUSATE SODIUM 100 MG CAPSULE PO SCH ×2 (08:39→20:07)
[2018-03-22] MEDS: INSULIN REGULAR 100 UNIT/ML SUBCUT SCH ×4 (08:40→20:58)
[2018-03-22] MEDS: INSULIN ASPART PROTAMINE/ASPART 70/30 100 UNIT/ML SUBCUT SCH ×2 (08:40→18:24)
[2018-03-22] MEDS: ENOXAPARIN 40 MG/0.4 ML SYRINGE SUBCUT SCH (08:40)
[2018-03-22] MEDS: traZODone 50 MG TABLET PO PRN (20:58)
[2018-03-23] MEDS: HYDROmorphone 2 MG/1 ML VIAL IV PRN ×11 (00:30→22:42)
[2018-03-23] MEDS: VANCOMYCIN INJ 1,000 MG in SODIUM CHLORIDE 0.9% 250 ML IV SCH ×2 (02:56→14:08)
[2018-03-23] MEDS: SODIUM CHLORIDE 0.9% 1,000 ML IV SCH ×3 (03:00→14:09)
[2018-03-23 04:56] LABS: Basophils # 0.1 10*3/uL (0.0-0.2); Basophils % 0.5 % (0.0-0.8); Eosinophils # 0.3 10*3/uL (0.0-0.87); Eosinophils % 1.8 % (0.00-10.9); Hematocrit 25.8 VOL% (35.7-47.0); Hemoglobin 8.7 GM/DL (12.0-16.0); Immature Granulocytes % 0.3 %; Immature Granulocytes Absolute 0.04 #; Lymphocytes # 5.2 10*3/uL (1.4-4.0); Lymphocytes % 35.6 % (21.3-54.2); Mean Corpuscular HGB Conc 33.7 GM/DL (32-36); Mean Corpuscular Hemoglobin 28 PG (27-34); Mean Platelet Volume 10.1 FL (9.6-12.0); Monocytes # 1.1 10*3/uL (0.11-0.8); Monocytes % 7.9 % (1.7-12.7); Neutrophils # 7.8 10*3/uL (1.4-7.4); Neutrophils % 53.9 % (38.7-73.9); Platelet Count 442 T/CUMM (130-400); Red Blood Count 3.07 MC/CUMM (3.8-5.5); Red Cell Distribution Width 16.5 % (9.3-17.3); White Blood Count 14.5 T/CUMM (4-12)
[2018-03-23] MEDS: DOCUSATE SODIUM 100 MG CAPSULE PO SCH ×2 (08:24→20:09)
[2018-03-23] MEDS: amLODIPine 5 MG TABLET PO SCH (08:24)
[2018-03-23] MEDS: oxyCODONE/ACETAMINOPHEN 5-325 MG TABLET PO PRN ×2 (08:25→14:08)
[2018-03-23] MEDS: INSULIN ASPART PROTAMINE/ASPART 70/30 100 UNIT/ML SUBCUT SCH ×2 (08:25→17:10)
[2018-03-23] MEDS: ENOXAPARIN 40 MG/0.4 ML SYRINGE SUBCUT SCH (08:25)
[2018-03-23] MEDS: INSULIN REGULAR 100 UNIT/ML SUBCUT SCH ×4 (08:25→21:10)
[2018-03-23] MEDS: LISINOPRIL 20 MG TABLET PO SCH (08:25)
[2018-03-23] MEDS: GABAPENTIN 600 MG TABLET PO SCH ×3 (08:31→20:09)
[2018-03-23] MEDS: traZODone 50 MG TABLET PO PRN (22:51)
[2018-03-24] MEDS: HYDROmorphone 2 MG/1 ML VIAL IV PRN ×7 (00:47→20:40)
[2018-03-24] MEDS: VANCOMYCIN INJ 1,000 MG in SODIUM CHLORIDE 0.9% 250 ML IV SCH ×2 (01:01→14:12)
[2018-03-24] MEDS: SODIUM CHLORIDE 0.9% 1,000 ML IV SCH ×4 (01:01→22:22)
[2018-03-24] MEDS: oxyCODONE/ACETAMINOPHEN 5-325 MG TABLET PO PRN ×2 (06:09→12:49)
[2018-03-24 06:14] LABS: Basophils # 0.1 10*3/uL (0.0-0.2); Basophils % 0.4 % (0.0-0.8); Eosinophils # 0.3 10*3/uL (0.0-0.87); Eosinophils % 1.9 % (0.00-10.9); Hematocrit 27.8 VOL% (35.7-47.0); Hemoglobin 9.3 GM/DL (12.0-16.0); Immature Granulocytes % 0.4 %; Immature Granulocytes Absolute 0.07 #; Lymphocytes # 4.6 10*3/uL (1.4-4.0); Lymphocytes % 27.4 % (21.3-54.2); Mean Corpuscular HGB Conc 33.5 GM/DL (32-36); Mean Corpuscular Hemoglobin 29 PG (27-34); Mean Corpuscular Volume 85.5 FL (87-102); Mean Platelet Volume 10.3 FL (9.6-12.0); Monocytes # 0.9 10*3/uL (0.11-0.8); Monocytes % 5.2 % (1.7-12.7); Neutrophils % 64.7 % (38.7-73.9); Platelet Count 514 T/CUMM (130-400); Red Blood Count 3.25 MC/CUMM (3.8-5.5); Red Cell Distribution Width 16.6 % (9.3-17.3)
[2018-03-24 06:52] LABS: Calcium 8.3 MG/DL (8.5-10.1); Osmolality,Calculated 282.3 MOS/KG (273-304); Potassium 4.5 MMOL/L (3.5-5.1)
[2018-03-24] MEDS: GABAPENTIN 600 MG TABLET PO SCH ×3 (08:08→20:40)
[2018-03-24] MEDS: ENOXAPARIN 40 MG/0.4 ML SYRINGE SUBCUT SCH (08:08)
[2018-03-24] MEDS: LISINOPRIL 20 MG TABLET PO SCH (08:09)
[2018-03-24] MEDS: INSULIN REGULAR 100 UNIT/ML SUBCUT SCH ×3 (08:09→18:41)
[2018-03-24] MEDS: DOCUSATE SODIUM 100 MG CAPSULE PO SCH ×2 (08:09→20:39)
[2018-03-24] MEDS: amLODIPine 5 MG TABLET PO SCH (08:09)
[2018-03-24] MEDS: INSULIN ASPART PROTAMINE/ASPART 70/30 100 UNIT/ML SUBCUT SCH ×2 (08:09→18:41)
[2018-03-24] MEDS: PROMETHAZINE 25 MG/1 ML VIAL IM PRN (14:12)
[2018-03-25] MEDS: INSULIN REGULAR 100 UNIT/ML SUBCUT SCH ×5 (00:08→22:23)
[2018-03-25] MEDS: VANCOMYCIN INJ 1,000 MG in SODIUM CHLORIDE 0.9% 250 ML IV SCH (01:46)
[2018-03-25] MEDS: HYDROmorphone 2 MG/1 ML VIAL IV PRN ×7 (01:46→22:18)
[2018-03-25] MEDS: oxyCODONE/ACETAMINOPHEN 5-325 MG TABLET PO PRN ×3 (03:47→19:56)
[2018-03-25] MEDS: SODIUM CHLORIDE 0.9% 1,000 ML IV SCH ×2 (04:15→13:15)
[2018-03-25] MEDS: DOCUSATE SODIUM 100 MG CAPSULE PO SCH ×2 (07:59→22:15)
[2018-03-25] MEDS: GABAPENTIN 600 MG TABLET PO SCH ×3 (08:18→22:14)
[2018-03-25] MEDS: INSULIN ASPART PROTAMINE/ASPART 70/30 100 UNIT/ML SUBCUT SCH ×2 (08:18→18:02)
[2018-03-25] MEDS: amLODIPine 5 MG TABLET PO SCH (08:19)
[2018-03-25] MEDS: ENOXAPARIN 40 MG/0.4 ML SYRINGE SUBCUT SCH (08:19)
[2018-03-25] MEDS: LISINOPRIL 20 MG TABLET PO SCH (08:20)
[2018-03-25 09:52] LABS: Basophils # 0.1 10*3/uL (0.0-0.2); Basophils % 0.7 % (0.0-0.8); Eosinophils # 0.3 10*3/uL (0.0-0.87); Eosinophils % 2.4 % (0.00-10.9); Hemoglobin 9.8 GM/DL (12.0-16.0); Immature Granulocytes % 0.4 %; Immature Granulocytes Absolute 0.05 #; Lymphocytes # 4.5 10*3/uL (1.4-4.0); Mean Corpuscular HGB Conc 32.7 GM/DL (32-36); Mean Corpuscular Hemoglobin 28 PG (27-34); Mean Corpuscular Volume 86.7 FL (87-102); Mean Platelet Volume 9.8 FL (9.6-12.0); Monocytes # 0.8 10*3/uL (0.11-0.8); Monocytes % 5.8 % (1.7-12.7); Neutrophils # 7.8 10*3/uL (1.4-7.4); Neutrophils % 57.7 % (38.7-73.9); Platelet Count 587 T/CUMM (130-400); Red Blood Count 3.46 MC/CUMM (3.8-5.5); Red Cell Distribution Width 16.6 % (9.3-17.3); White Blood Count 13.5 T/CUMM (4-12)
[2018-03-25] MEDS: CIPROFLOXACIN 500 MG TABLET PO SCH ×2 (15:47→22:14)
[2018-03-25] MEDS: AMOXICILLIN/CLAV 875 MG TABLET PO SCH ×2 (15:48→22:14)
[2018-03-25] MEDS: HYDROCORTISONE 2.5% CREAM 30 GM TUBE TOP SCH ×2 (18:00→22:15)
[2018-03-25] MEDS: PROMETHAZINE 25 MG/1 ML VIAL IM PRN (19:56)
[2018-03-25] MEDS: traZODone 50 MG TABLET PO PRN (23:08)
[2018-03-26] MEDS: HYDROmorphone 2 MG/1 ML VIAL IV PRN ×3 (02:53→14:10)
[2018-03-26] MEDS: oxyCODONE/ACETAMINOPHEN 5-325 MG TABLET PO PRN ×2 (03:56→10:37)
[2018-03-26 06:47] LABS: Basophils # 0.1 10*3/uL (0.0-0.2); Basophils % 0.7 % (0.0-0.8); Eosinophils # 0.3 10*3/uL (0.0-0.87); Eosinophils % 1.9 % (0.00-10.9); Hematocrit 28.8 VOL% (35.7-47.0); Hemoglobin 9.3 GM/DL (12.0-16.0); Immature Granulocytes % 0.4 %; Immature Granulocytes Absolute 0.05 #; Lymphocytes # 4.7 10*3/uL (1.4-4.0); Mean Corpuscular HGB Conc 32.3 GM/DL (32-36); Mean Corpuscular Hemoglobin 28 PG (27-34); Mean Platelet Volume 9.7 FL (9.6-12.0); Monocytes # 0.7 10*3/uL (0.11-0.8); Monocytes % 5.6 % (1.7-12.7); Neutrophils # 7.3 10*3/uL (1.4-7.4); Neutrophils % 55.4 % (38.7-73.9); Platelet Count 608 T/CUMM (130-400); Red Blood Count 3.31 MC/CUMM (3.8-5.5); Red Cell Distribution Width 16.2 % (9.3-17.3); White Blood Count 13.2 T/CUMM (4-12)
[2018-03-26] MEDS: ENOXAPARIN 40 MG/0.4 ML SYRINGE SUBCUT SCH (09:19)
[2018-03-26] MEDS: INSULIN REGULAR 100 UNIT/ML SUBCUT SCH ×2 (09:20→12:22)
[2018-03-26] MEDS: INSULIN ASPART PROTAMINE/ASPART 70/30 100 UNIT/ML SUBCUT SCH (09:20)
[2018-03-26] MEDS: AMOXICILLIN/CLAV 875 MG TABLET PO SCH (09:22)
[2018-03-26] MEDS: GABAPENTIN 600 MG TABLET PO SCH ×2 (09:22→16:16)
[2018-03-26] MEDS: CIPROFLOXACIN 500 MG TABLET PO SCH (09:22)
[2018-03-26] MEDS: LISINOPRIL 20 MG TABLET PO SCH (09:22)
[2018-03-26] MEDS: amLODIPine 5 MG TABLET PO SCH (09:23)
[2018-03-26] MEDS: HYDROCORTISONE 2.5% CREAM 30 GM TUBE TOP SCH ×2 (09:24→16:16)
[2018-03-26] MEDS: DOCUSATE SODIUM 100 MG CAPSULE PO SCH (10:06)
[2018-03-26] MEDS ORDERED: ZALEPLON 5 MG CAPSULE PO PRN (10:55)
[2018-03-26 11:27] VITALS: BP 177/98
== END 2018-03-26 15:55 | disposition home or self-care (01) | DRG 617 ==
LOC: N.ED 20:38 → N.EDINP 03-20 01:17 → SUATTDRO 03-20 01:17 → N.3E 03-20 02:09
PROVIDERS: ADMIT Internal Medicine

== ENCOUNTER 2018-05-02 18:34 | Inpatient (IN) ==
[2018-05-02] MEDS ORDERED: SODIUM CHLORIDE 0.9% 2,000 ML IV STA (18:52)
[2018-05-02] MEDS ORDERED: LORazepam 2 MG/1 ML VIAL ONE (19:10)
[2018-05-02] MEDS ORDERED: LORazepam 2 MG/1 ML VIAL IV STA (19:16)
[2018-05-02 19:28] LABS: Basophils # 0.1 10*3/uL (0.0-0.2); Basophils % 0.5 % (0.0-0.8); Hematocrit 41.3 VOL% (35.7-47.0); Hemoglobin 13.3 GM/DL (12.0-16.0); Immature Granulocytes % 0.5 %; Immature Granulocytes Absolute 0.09 #; Lymphocytes # 1.8 10*3/uL (1.4-4.0); Lymphocytes % 10.5 % (21.3-54.2); Mean Corpuscular HGB Conc 32.2 GM/DL (32-36); Mean Corpuscular Hemoglobin 28 PG (27-34); Mean Corpuscular Volume 87.9 FL (87-102); Mean Platelet Volume 10.2 FL (9.6-12.0); Monocytes # 0.5 10*3/uL (0.11-0.8); Monocytes % 2.9 % (1.7-12.7); Neutrophils # 14.4 10*3/uL (1.4-7.4); Neutrophils % 85.6 % (38.7-73.9); Platelet Count 652 T/CUMM (130-400); White Blood Count 16.8 T/CUMM (4-12)
[2018-05-02 20:01] LABS: Alanine Aminotransferase 16 U/L (13-56); Albumin 3.4 G/DL (3.4-5.0); Alkaline Phosphatase 162 U/L (45-117); Aspartate Amino Transferase 14 U/L (0-37); Blood Urea Nitrogen 53 MG/DL (7-18); Calcium 9.5 MG/DL (8.5-10.1); Osmolality,Calculated 322.5 MOS/KG (273-304); Potassium 4.5 MMOL/L (3.5-5.1); Sodium 139 MMOL/L (136-145); Total Protein 7.9 G/DL (6.4-8.3); Troponin I Only < 0.015 NG/ML (0.00-0.045)
[2018-05-02 20:05] LABS: Glucose 678 MG/DL (74-106)
[2018-05-02] MEDS ORDERED: INSULIN REGULAR 100 UNIT/ML IV STA (20:06)
[2018-05-02 20:44] LABS: Apearance,Urine CLOUDY (Clear); Bilirubin,Urine Negative (Negative); Blood, Urine Moderate mg/dL (Negative); Glucose,Urine (UA) >=500 mg/dL (Negative); Ketones,Urine 20 mg/dL (Negative); Nitrite,Urine Negative (Negative); Protein,Urine >=500 MG/DL; RBC,Urine 11 /HPF (0-4); Squamous Epithelial Cell,Urine Occasional /HPF (0-10); Urine Color Yellow (Yellow); Urine Specific Gravity 1.018 (1.001-1.035); Urine Urobilinogen < 2.0 EU/DL (0.2-1.0); WBC,Urine 2 /HPF (0-6)
[2018-05-02 20:59] LABS: Barbiturates Screen,Urine Negative (Negative); Benzodiazepines Screen,Urine Negative (Negative); Cannabinoid Screen,Urine Negative (Negative); Opiate Screen,Urine Negative (Negative); Phencyclidine Screen,Urine Negative (Negative)
[2018-05-02 21:35] LABS: Salicylate 4.6 MG/DL (2.8-20)
[2018-05-02 21:50] LABS: Acetaminophen < 2.0 UG/ML (10-30)
[2018-05-02] MEDS ORDERED: LABETALOL 20 MG/4 ML SYRINGE IV ONE (22:55)
[2018-05-02] MEDS ORDERED: LABETALOL 100 MG/20 ML VIAL IV ONE (22:59)
[2018-05-02] MEDS ORDERED: ALBUTEROL 2.5 MG/3 ML NEB RESP TX PRN (23:38)
[2018-05-02] MEDS ORDERED: SODIUM CHLORIDE 0.9% 1,000 ML IV SCH (23:45)
[2018-05-02] MEDS ORDERED: LORazepam 2 MG/1 ML VIAL IV PRN (23:54)
[2018-05-03] MEDS ORDERED: SODIUM PHOSPHATE INJ 13.6 MMOL in SODIUM CHLORIDE 0.9% 250 ML IV PRN (00:01)
[2018-05-03] MEDS ORDERED: MAGNESIUM SULF RIDER 4 GM in PREMIX 1 EACH IV PRN (00:01)
[2018-05-03] MEDS ORDERED: SODIUM CHLORIDE 0.9% 1,000 ML IV ONE (00:01)
[2018-05-03] MEDS ORDERED: MAGNESIUM SULF RIDER 2 GM in PREMIX 1 EACH IV PRN (00:01)
[2018-05-03] MEDS ORDERED: DEXTROSE 50% 25 GM/50 ML VIAL IV PRN ×2 (00:01)
[2018-05-03] MEDS ORDERED: SODIUM BICARB INJ 100 MEQ in STERILE WATER INJ 400 ML IV PRN (00:01)
[2018-05-03] MEDS ORDERED: INSULIN REGULAR DRIP 100 ML IV SCH (00:30)
[2018-05-03 01:01] LABS: PT Patient Result 10.7 SECS
[2018-05-03 01:04] LABS: ABG Base Excess -4.7 MMOL/L (-2.5-2.5); ABG HCO3 20.5 MMOL/L (20-26); ABG Oxygen Saturation 96.5 % (95-100); ABG PCO2 33.7 MM HG (35-48); ABG PH 7.375 (7.35-7.45); ABG PO2 90.6 MM HG (80-95); ABG TCO2 17.5 MMOL/L (23-27); Allen Test Positive; Pt O2 Delivery Device Other
[2018-05-03] MEDS ORDERED: ZIPRASIDONE 20 MG/1 ML VIAL IM PRN (01:07)
[2018-05-03 01:12] LABS: Calcium 8.7 MG/DL (8.5-10.1); Osmolality,Calculated 324.6 MOS/KG (273-304); Potassium 3.9 MMOL/L (3.5-5.1)
[2018-05-03 01:20] LABS: Lactic Acid 2.3 MMOL/L (0.4-2.0)
[2018-05-03] MEDS: SODIUM CHLORIDE 0.9% 1,000 ML IV SCH ×4 (01:20→06:28)
[2018-05-03 04:04] LABS: Basophils # 0.1 10*3/uL (0.0-0.2); Basophils % 0.4 % (0.0-0.8); Hematocrit 33.7 VOL% (35.7-47.0); Hemoglobin 11.4 GM/DL (12.0-16.0); Immature Granulocytes Absolute 0.19 #; Lymphocytes # 3.4 10*3/uL (1.4-4.0); Mean Corpuscular HGB Conc 33.8 GM/DL (32-36); Mean Corpuscular Hemoglobin 29 PG (27-34); Mean Corpuscular Volume 84.7 FL (87-102); Monocytes # 0.9 10*3/uL (0.11-0.8); Monocytes % 4.7 % (1.7-12.7); NRBC # 0.02 10*3/uL; Neutrophils # 15.2 10*3/uL (1.4-7.4); Neutrophils % 76.9 % (38.7-73.9); Platelet Count 586 T/CUMM (130-400); Red Blood Count 3.98 MC/CUMM (3.8-5.5); Red Cell Distribution Width 14.9 % (9.3-17.3); White Blood Count 19.8 T/CUMM (4-12)
[2018-05-03 04:33] LABS: Calcium 8.2 MG/DL (8.5-10.1); Osmolality,Calculated 322.1 MOS/KG (273-304)
[2018-05-03 04:34] LABS: Potassium 3.2 MMOL/L (3.5-5.1)
[2018-05-03] MEDS ORDERED: DEXTROSE 5% NACL 0.9% 1,000 ML IV SCH (06:30)
[2018-05-03] MEDS ORDERED: GABAPENTIN 600 MG TABLET PO SCH (09:00)
[2018-05-03] MEDS ORDERED: cloNIDine 0.1 MG/24 HR PATCH TRANSDERM SCH (09:00)
[2018-05-03] MEDS: ENOXAPARIN 30 MG/0.3 ML SYRINGE SUBCUT SCH (09:03)
[2018-05-03] MEDS: PANTOPRAZOLE 40 MG TABLET PO SCH ×2 (09:04→09:21)
[2018-05-03] MEDS: amLODIPine 5 MG TABLET PO SCH ×2 (09:04→09:22)
[2018-05-03] MEDS: hydrALAZINE 20 MG/1 ML VIAL IV PRN ×3 (09:04→19:21)
[2018-05-03 10:02] LABS: Calcium 8.7 MG/DL (8.5-10.1); Osmolality,Calculated 312.7 MOS/KG (273-304); Potassium 3.4 MMOL/L (3.5-5.1)
[2018-05-03] MEDS: POTASSIUM CHLORIDE RIDER 10 MEQ in PREMIX 1 EACH IV PRN ×3 (10:31→13:02)
[2018-05-03] MEDS: HYDROCORTISONE 2.5% CREAM 30 GM TUBE TOP SCH ×3 (10:31→20:37)
[2018-05-03] MEDS: DEXTROSE 5% NACL 0.45% 1,000 ML IV SCH ×2 (10:32→14:22)
[2018-05-03] MEDS: cefTRIAXone 1,000 MG in SYRINGE 1 EACH IV SCH ×2 (11:02→20:47)
[2018-05-03 15:00] LABS: Calcium 8.3 MG/DL (8.5-10.1); Potassium 3.4 MMOL/L (3.5-5.1)
[2018-05-03] MEDS: SODIUM CHLORIDE 0.45% 1,000 ML IV SCH ×2 (16:08→19:24)
[2018-05-03 17:22] LABS: Osmolality,Calculated 305.9 MOS/KG (273-304); Potassium 3.5 MMOL/L (3.5-5.1)
[2018-05-03] MEDS: GABAPENTIN 600 MG TABLET PO SCH (20:36)
[2018-05-03] MEDS: INSULIN LISPRO 100 UNIT/ML SUBCUT SCH (20:37)
[2018-05-03 22:39] LABS: Calcium 8.2 MG/DL (8.5-10.1); Potassium 3.1 MMOL/L (3.5-5.1)
[2018-05-04] MEDS: SODIUM CHLORIDE 0.45% 1,000 ML IV SCH (00:29)
[2018-05-04] MEDS: INSULIN LISPRO 100 UNIT/ML SUBCUT SCH ×7 (00:35→23:44)
[2018-05-04 04:19] LABS: Basophils # 0.1 10*3/uL (0.0-0.2); Basophils % 0.6 % (0.0-0.8); Eosinophils # 0.1 10*3/uL (0.0-0.87); Eosinophils % 0.6 % (0.00-10.9); Hematocrit 31.4 VOL% (35.7-47.0); Hemoglobin 9.9 GM/DL (12.0-16.0); Immature Granulocytes % 0.6 %; Lymphocytes # 5.4 10*3/uL (1.4-4.0); Mean Corpuscular HGB Conc 31.5 GM/DL (32-36); Mean Corpuscular Hemoglobin 28 PG (27-34); Mean Platelet Volume 10.4 FL (9.6-12.0); Monocytes # 0.8 10*3/uL (0.11-0.8); Monocytes % 4.3 % (1.7-12.7); Neutrophils # 11.6 10*3/uL (1.4-7.4); Neutrophils % 63.9 % (38.7-73.9); Platelet Count 464 T/CUMM (130-400); Red Blood Count 3.53 MC/CUMM (3.8-5.5); Red Cell Distribution Width 15.2 % (9.3-17.3); White Blood Count 18.1 T/CUMM (4-12)
[2018-05-04 04:40] LABS: Calcium 7.9 MG/DL (8.5-10.1); Osmolality,Calculated 298.6 MOS/KG (273-304); Potassium 3.1 MMOL/L (3.5-5.1)
[2018-05-04] MEDS: POTASSIUM CHLORIDE RIDER 10 MEQ in PREMIX 1 EACH IV PRN ×4 (07:38→10:55)
[2018-05-04] MEDS: HYDROCORTISONE 2.5% CREAM 30 GM TUBE TOP SCH ×3 (08:00→20:13)
[2018-05-04] MEDS: GABAPENTIN 600 MG TABLET PO SCH ×3 (08:00→20:12)
[2018-05-04] MEDS: ENOXAPARIN 30 MG/0.3 ML SYRINGE SUBCUT SCH (08:00)
[2018-05-04] MEDS: amLODIPine 5 MG TABLET PO SCH (08:01)
[2018-05-04] MEDS: PANTOPRAZOLE 40 MG TABLET PO SCH (08:01)
[2018-05-04] MEDS: cefTRIAXone 1,000 MG in SYRINGE 1 EACH IV SCH ×3 (09:42→21:22)
[2018-05-04] MEDS: oxyCODONE/ACETAMINOPHEN 5-325 MG TABLET PO PRN ×2 (18:40→21:34)
[2018-05-04] MEDS ORDERED: oxyCODONE/ACETAMINOPHEN 5-325 MG TABLET PO ONE (22:00)
[2018-05-05] MEDS: oxyCODONE/ACETAMINOPHEN 5-325 MG TABLET PO PRN ×5 (01:16→20:34)
[2018-05-05] MEDS: INSULIN LISPRO 100 UNIT/ML SUBCUT SCH ×5 (05:13→20:36)
[2018-05-05 05:50] LABS: Basophils # 0.1 10*3/uL (0.0-0.2); Basophils % 0.6 % (0.0-0.8); Eosinophils # 0.4 10*3/uL (0.0-0.87); Eosinophils % 2.8 % (0.00-10.9); Hematocrit 29.5 VOL% (35.7-47.0); Hemoglobin 9.9 GM/DL (12.0-16.0); Immature Granulocytes % 0.4 %; Immature Granulocytes Absolute 0.05 #; Lymphocytes # 6.4 10*3/uL (1.4-4.0); Lymphocytes % 45.5 % (21.3-54.2); Mean Corpuscular HGB Conc 33.6 GM/DL (32-36); Mean Corpuscular Hemoglobin 29 PG (27-34); Mean Corpuscular Volume 85.5 FL (87-102); Mean Platelet Volume 10.4 FL (9.6-12.0); Monocytes # 0.6 10*3/uL (0.11-0.8); Monocytes % 4.1 % (1.7-12.7); Neutrophils # 6.6 10*3/uL (1.4-7.4); Neutrophils % 46.6 % (38.7-73.9); Platelet Count 452 T/CUMM (130-400); Red Blood Count 3.45 MC/CUMM (3.8-5.5); White Blood Count 14.1 T/CUMM (4-12)
[2018-05-05 06:07] LABS: Calcium 7.7 MG/DL (8.5-10.1); Osmolality,Calculated 296.1 MOS/KG (273-304); Potassium 3.3 MMOL/L (3.5-5.1)
[2018-05-05] MEDS: HYDROCORTISONE 2.5% CREAM 30 GM TUBE TOP SCH ×3 (08:05→22:07)
[2018-05-05] MEDS: PANTOPRAZOLE 40 MG TABLET PO SCH ×2 (08:18→22:02)
[2018-05-05] MEDS: amLODIPine 5 MG TABLET PO SCH (08:18)
[2018-05-05] MEDS: GABAPENTIN 600 MG TABLET PO SCH ×3 (08:18→22:01)
[2018-05-05] MEDS: ENOXAPARIN 30 MG/0.3 ML SYRINGE SUBCUT SCH (08:18)
[2018-05-05] MEDS: POTASSIUM CHLORIDE RIDER 10 MEQ in PREMIX 1 EACH IV PRN ×4 (08:28→16:05)
[2018-05-05] MEDS: cefTRIAXone 1,000 MG in SYRINGE 1 EACH IV SCH ×2 (09:30→22:04)
[2018-05-05] MEDS ORDERED: SODIUM CHLORIDE 0.9% 1,000 ML IV SCH (12:00)
[2018-05-05] MEDS: MORPHINE ER 15 MG TABLET PO SCH ×2 (15:12→22:01)
[2018-05-06] MEDS: INSULIN LISPRO 100 UNIT/ML SUBCUT SCH ×6 (00:37→20:49)
[2018-05-06] MEDS: ONDANSETRON 4 MG/2 ML VIAL IV PRN ×3 (00:44→21:32)
[2018-05-06] MEDS: oxyCODONE/ACETAMINOPHEN 5-325 MG TABLET PO PRN ×3 (02:31→22:57)
[2018-05-06 07:09] LABS: Basophils # 0.1 10*3/uL (0.0-0.2); Basophils % 0.4 % (0.0-0.8); Eosinophils # 0.4 10*3/uL (0.0-0.87); Eosinophils % 2.6 % (0.00-10.9); Hematocrit 31.5 VOL% (35.7-47.0); Hemoglobin 10.4 GM/DL (12.0-16.0); Immature Granulocytes % 0.4 %; Immature Granulocytes Absolute 0.05 #; Lymphocytes # 5.9 10*3/uL (1.4-4.0); Lymphocytes % 41.3 % (21.3-54.2); Mean Corpuscular Hemoglobin 28 PG (27-34); Mean Corpuscular Volume 86.1 FL (87-102); Mean Platelet Volume 10.8 FL (9.6-12.0); Monocytes # 0.6 10*3/uL (0.11-0.8); Monocytes % 4.1 % (1.7-12.7); Neutrophils # 7.3 10*3/uL (1.4-7.4); Neutrophils % 51.2 % (38.7-73.9); Platelet Count 457 T/CUMM (130-400); Red Blood Count 3.66 MC/CUMM (3.8-5.5); Red Cell Distribution Width 14.9 % (9.3-17.3); White Blood Count 14.2 T/CUMM (4-12)
[2018-05-06 07:38] LABS: Calcium 8.4 MG/DL (8.5-10.1); Osmolality,Calculated 293.3 MOS/KG (273-304)
[2018-05-06] MEDS ORDERED: ETOMIDATE 20 MG/10 ML VIAL IV ONE (08:39)
[2018-05-06] MEDS ORDERED: LIDOCAINE 2% 5 ML VIAL ONE (08:39)
[2018-05-06] MEDS ORDERED: PROPOFOL 200 MG/20 ML VIAL IV ONE (08:39)
[2018-05-06] MEDS: HYDROCORTISONE 2.5% CREAM 30 GM TUBE TOP SCH ×3 (10:50→21:41)
[2018-05-06] MEDS: amLODIPine 5 MG TABLET PO SCH (10:50)
[2018-05-06] MEDS: MORPHINE ER 15 MG TABLET PO SCH ×2 (10:50→21:28)
[2018-05-06] MEDS: GABAPENTIN 600 MG TABLET PO SCH ×3 (10:50→21:28)
[2018-05-06] MEDS: cefTRIAXone 1,000 MG in SYRINGE 1 EACH IV SCH ×2 (10:50→21:29)
[2018-05-06] MEDS: PANTOPRAZOLE 40 MG TABLET PO SCH ×2 (10:50→21:28)
[2018-05-06] MEDS: METOCLOPRAMIDE 10 MG/10 ML UDCUP PO SCH ×3 (11:01→21:29)
[2018-05-06] MEDS ORDERED: ZALEPLON 5 MG CAPSULE PO PRN (21:04)
[2018-05-07] MEDS: INSULIN LISPRO 100 UNIT/ML SUBCUT SCH ×4 (01:19→12:12)
[2018-05-07] MEDS: oxyCODONE/ACETAMINOPHEN 5-325 MG TABLET PO PRN ×2 (03:28→12:07)
[2018-05-07] MEDS: MORPHINE ER 15 MG TABLET PO SCH (10:06)
[2018-05-07] MEDS: amLODIPine 5 MG TABLET PO SCH (10:06)
[2018-05-07] MEDS: METOCLOPRAMIDE 10 MG/10 ML UDCUP PO SCH ×2 (10:06→12:11)
[2018-05-07] MEDS: GABAPENTIN 600 MG TABLET PO SCH (10:06)
[2018-05-07] MEDS: PANTOPRAZOLE 40 MG TABLET PO SCH (10:07)
[2018-05-07] MEDS: cefTRIAXone 1,000 MG in SYRINGE 1 EACH IV SCH (10:17)
[2018-05-07] MEDS ORDERED: LISINOPRIL 20 MG TABLET PO SCH (11:30)
[2018-05-07] MEDS: HYDROCORTISONE 2.5% CREAM 30 GM TUBE TOP SCH (12:25)
[2018-05-07] MEDS: ONDANSETRON 4 MG/2 ML VIAL IV PRN (12:27)
[2018-05-07 16:24] VITALS: BP 132/78
== END 2018-05-07 15:55 | disposition home or self-care (01) | DRG 638 ==
LOC: EDUNIT# → EDBD → N.ED 18:34 → SUATTDRO 21:21 → N.EDINP 21:21 → N.ICU 22:08 → N.5E 05-04 15:28
PROVIDERS: ADMIT Internal Medicine Nephrology; ATTEND Internal Medicine

== ENCOUNTER 2019-05-26 16:10 | Inpatient (IN) ==
[2019-05-26] MEDS ORDERED: ORPHENADRINE 60 MG/2 ML VIAL IV STA (16:34)
[2019-05-26] MEDS ORDERED: methylPREDNISolone SOD SUC 125 MG/2 ML VIAL IV STA (16:34)
[2019-05-26] MEDS ORDERED: DEXTROSE 50% 25 GM/50 ML VIAL IV STA (16:37)
[2019-05-26] MEDS: DEXTROSE 5% NACL 0.45% 1,000 ML IV SCH ×2 (17:21→22:01)
[2019-05-26] MEDS ORDERED: DEXTROSE 50% 25 GM/50 ML VIAL IV PRN (17:24)
[2019-05-26] MEDS ORDERED: GLUCAGON 1 MG VIAL IM PRN (17:24)
[2019-05-26 17:46] LABS: Basophils # 0.1 10*3/uL (0.0-0.2); Basophils % 0.5 % (0.0-0.8); Eosinophils # 0.1 10*3/uL (0.0-0.87); Eosinophils % 0.8 % (0.00-10.9); Hematocrit 31.9 VOL% (35.7-47.0); Hemoglobin 9.7 GM/DL (12.0-16.0); Immature Granulocytes % 0.4 %; Immature Granulocytes Absolute 0.05 #; Lymphocytes # 2.4 10*3/uL (1.4-4.0); Lymphocytes % 18.8 % (21.3-54.2); Mean Corpuscular HGB Conc 30.4 GM/DL (32-36); Mean Corpuscular Volume 92.5 FL (87-102); Mean Platelet Volume 10.7 FL (9.6-12.0); Monocytes % 3.3 % (1.7-12.7); Neutrophils % 76.2 % (38.7-73.9); Platelet Count 403 T/CUMM (130-400); Red Blood Count 3.45 MC/CUMM (3.8-5.5); Red Cell Distribution Width 16.5 % (9.3-17.3); White Blood Count 12.9 T/CUMM (4-12)
[2019-05-26 17:48] LABS: Apearance,Urine CLEAR (Clear); Bacteria,Urine Occasional /HPF (Few); Bilirubin,Urine Negative (Negative); Blood, Urine Negative (Negative); Glucose,Urine (UA) 50 mg/dL (Negative); Ketones,Urine Negative (Negative); Nitrite,Urine Negative (Negative); Protein,Urine >=500 MG/DL; RBC,Urine 2 /HPF (0-4); Urine Color Yellow (Yellow); Urine Specific Gravity 1.012 (1.001-1.035); Urine Urobilinogen < 2.0 EU/DL (0.2-1.0); WBC,Urine 2 /HPF (0-6)
[2019-05-26] MEDS ORDERED: AZITHROMYCIN INJ 500 MG in SODIUM CHLORIDE 0.9% 250 ML IV STA (17:57)
[2019-05-26] MEDS ORDERED: ALBUTEROL NEB SOLN 5 MG/ML 20 ML/BOTTLE CONT NEB STA (17:57)
[2019-05-26] MEDS ORDERED: FUROSEMIDE 40 MG/4 ML VIAL IV STA (17:57)
[2019-05-26] MEDS ORDERED: cefTRIAXone 1,000 MG in SODIUM CHLORIDE 0.9% 100 ML IV STA (17:57)
[2019-05-26 18:00] LABS: Barbiturates Screen,Urine Negative (Negative); Benzodiazepines Screen,Urine Negative (Negative); Cannabinoid Screen,Urine Negative (Negative); Opiate Screen,Urine Negative (Negative); Phencyclidine Screen,Urine Negative (Negative)
[2019-05-26] MEDS ORDERED: cefTRIAXone 1,000 MG VIAL ONE (18:02)
[2019-05-26 18:27] LABS: Alanine Aminotransferase 15 U/L (13-56); Albumin 1.9 G/DL (3.4-5.0); Alkaline Phosphatase 115 U/L (45-117); Aspartate Amino Transferase 30 U/L (0-37); Bilirubin,Total < 0.39 MG/DL (0.2-1.0); Blood Urea Nitrogen 20 MG/DL (7-18); CKMB % 1.6 %; Calcium 7.6 MG/DL (8.5-10.1); Glucose 63 MG/DL (74-106); Osmolality,Calculated 286.8 MOS/KG (273-304); Total Protein 5.6 G/DL (6.4-8.3); Troponin I 0.023 NG/ML (0.00-0.045)
[2019-05-26] MEDS ORDERED: fentaNYL 100 MCG/2 ML VIAL IV STA (18:40)
[2019-05-26 19:12] LABS: PT Patient Result 10.7 SECS
[2019-05-26] MEDS ORDERED: ACETAMINOPHEN 325 MG TABLET PO PRN (19:39)
[2019-05-26] MEDS ORDERED: ONDANSETRON 4 MG/2 ML VIAL IV PRN (19:39)
[2019-05-26] MEDS ORDERED: hydrALAZINE 20 MG/1 ML VIAL IV PRN (19:52)
[2019-05-26] MEDS ORDERED: SODIUM CHLORIDE 0.45% 500 ML IV ONE (19:54)
[2019-05-26] MEDS ORDERED: NON-FORMULARY MEDICATION (Methylprednisolone 4 MG) PO SCH (20:00)
[2019-05-26] MEDS ORDERED: cefTRIAXone 1,000 MG in SYRINGE 1 EACH IV SCH (21:00)
[2019-05-26] MEDS ORDERED: ENOXAPARIN 40 MG/0.4 ML SYRINGE SUBCUT SCH (21:00)
[2019-05-26] MEDS ORDERED: BENZONATATE 100 MG CAPSULE PO SCH (21:00)
[2019-05-26] MEDS: ENOXAPARIN 30 MG/0.3 ML SYRINGE SUBCUT SCH (22:02)
[2019-05-26] MEDS: GABAPENTIN 600 MG TABLET PO SCH (22:02)
[2019-05-26] MEDS: NICOTINE 21 MG/24 HR PATCH TRANSDERM PRN (22:02)
[2019-05-27] MEDS ORDERED: GLUCAGON 1 MG VIAL IM PRN (00:32)
[2019-05-27] MEDS ORDERED: INSULIN REGULAR 100 UNIT/ML SUBCUT SCH ×2 (01:00→07:30)
[2019-05-27] MEDS: SODIUM CHLORIDE 0.45% 1,000 ML IV SCH ×4 (01:40→21:42)
[2019-05-27] MEDS: ALBUTEROL 2.5 MG/3 ML NEB RESP TX SCH ×4 (02:28→19:37)
[2019-05-27] MEDS ORDERED: DEXTROSE 50% 25 GM/50 ML VIAL IV PRN (02:59)
[2019-05-27] MEDS: INSULIN REGULAR 100 UNIT/ML SUBCUT SCH ×5 (03:19→20:32)
[2019-05-27 04:36] LABS: Basophils % 0.2 % (0.0-0.8); Hematocrit 28.6 VOL% (35.7-47.0); Hemoglobin 8.6 GM/DL (12.0-16.0); Immature Granulocytes % 0.6 %; Immature Granulocytes Absolute 0.06 #; Lymphocytes # 0.4 10*3/uL (1.4-4.0); Lymphocytes % 3.7 % (21.3-54.2); Mean Corpuscular HGB Conc 30.1 GM/DL (32-36); Mean Corpuscular Volume 92.9 FL (87-102); Mean Platelet Volume 10.2 FL (9.6-12.0); Monocytes % 0.3 % (1.7-12.7); Neutrophils % 95.2 % (38.7-73.9); Platelet Count 514 T/CUMM (130-400); Red Blood Count 3.08 MC/CUMM (3.8-5.5); Red Cell Distribution Width 16.7 % (9.3-17.3); White Blood Count 10.1 T/CUMM (4-12)
[2019-05-27 05:01] LABS: Calcium 7.4 MG/DL (8.5-10.1); Osmolality,Calculated 306.3 MOS/KG (273-304); Risk Ratio 2.34; Thyroid Stimulating Hormone 1.29 uIU/ml (0.358-3.74)
[2019-05-27 05:28] LABS: Anisocytosis 1+; Band Neutrophils 1 % (0-10); Lymphocytes 2 % (20-55); Segmented Neutrophils 96 % (50-85); Total Cells Counted 100
[2019-05-27 05:29] LABS: Acanthocytes Few; Microcytosis 1+; Ovalocytes Few
[2019-05-27] MEDS ORDERED: FUROSEMIDE 40 MG/4 ML VIAL IV SCH (08:00)
[2019-05-27] MEDS: amLODIPine 5 MG TABLET PO SCH (08:13)
[2019-05-27] MEDS: GABAPENTIN 600 MG TABLET PO SCH ×3 (08:13→20:27)
[2019-05-27] MEDS: FUROSEMIDE 40 MG/4 ML VIAL IV SCH ×2 (08:17→16:04)
[2019-05-27] MEDS ORDERED: PANTOPRAZOLE 40 MG TABLET PO SCH (09:00)
[2019-05-27] MEDS ORDERED: INSULIN ASPART PROTAMINE/ASPART 70/30 100 UNIT/ML SUBCUT ONE (11:27)
[2019-05-27] MEDS: MORPHINE 4 MG/1 ML VIAL IV PRN ×3 (11:42→20:35)
[2019-05-27] MEDS: INSULIN ASPART PROTAMINE/ASPART 70/30 100 UNIT/ML SUBCUT SCH (16:00)
[2019-05-27] MEDS: SUCRALFATE 1 GM TABLET PO SCH (16:02)
[2019-05-27] MEDS ORDERED: AZITHROMYCIN INJ 250 MG in SODIUM CHLORIDE 0.9% 150 ML IV SCH (17:00)
[2019-05-27] MEDS ORDERED: AZITHROMYCIN INJ 500 MG in SODIUM CHLORIDE 0.9% 250 ML IV SCH (17:00)
[2019-05-27] MEDS ORDERED: cefTRIAXone 1,000 MG in SYRINGE 1 EACH IV SCH (18:00)
[2019-05-27] MEDS: ENOXAPARIN 30 MG/0.3 ML SYRINGE SUBCUT SCH (20:33)
[2019-05-27] MEDS: NICOTINE 21 MG/24 HR PATCH TRANSDERM PRN (21:52)
[2019-05-28] MEDS: ALBUTEROL 2.5 MG/3 ML NEB RESP TX SCH ×4 (00:15→19:03)
[2019-05-28] MEDS: MORPHINE 4 MG/1 ML VIAL IV PRN ×2 (00:53→05:37)
[2019-05-28] MEDS: guaiFENesin/DM ER 600-30 MG TABLET PO PRN ×2 (05:44→22:12)
[2019-05-28] MEDS: INSULIN REGULAR 100 UNIT/ML SUBCUT SCH ×4 (07:46→22:13)
[2019-05-28] MEDS: INSULIN ASPART PROTAMINE/ASPART 70/30 100 UNIT/ML SUBCUT SCH ×2 (08:28→15:34)
[2019-05-28] MEDS: GABAPENTIN 600 MG TABLET PO SCH ×3 (08:29→22:12)
[2019-05-28] MEDS: SUCRALFATE 1 GM TABLET PO SCH ×2 (08:29→15:33)
[2019-05-28] MEDS: amLODIPine 5 MG TABLET PO SCH (08:29)
[2019-05-28] MEDS: FUROSEMIDE 40 MG/4 ML VIAL IV SCH ×2 (08:29→15:21)
[2019-05-28] MEDS: SODIUM CHLORIDE 0.45% 1,000 ML IV SCH (11:56)
[2019-05-28] MEDS ORDERED: ONDANSETRON ODT 4 MG TABLET PO PRN (16:44)
[2019-05-28] MEDS ORDERED: INSULIN ASPART PROTAMINE/ASPART 70/30 100 UNIT/ML SUBCUT SCH (18:41)
[2019-05-28] MEDS: traMADol 50 MG TABLET PO PRN (22:12)
[2019-05-28] MEDS: ENOXAPARIN 30 MG/0.3 ML SYRINGE SUBCUT SCH (22:13)
[2019-05-28] MEDS: NICOTINE 21 MG/24 HR PATCH TRANSDERM PRN (23:46)
[2019-05-29] MEDS ORDERED: MORPHINE 4 MG/1 ML VIAL IM PRN (00:47)
[2019-05-29] MEDS: ALBUTEROL 2.5 MG/3 ML NEB RESP TX SCH ×2 (07:19)
[2019-05-29 07:23] VITALS: BP 194/85
[2019-05-29] MEDS: FUROSEMIDE 40 MG/4 ML VIAL IV SCH (07:42)
[2019-05-29] MEDS: INSULIN REGULAR 100 UNIT/ML SUBCUT SCH ×2 (07:43→11:13)
[2019-05-29] MEDS: traMADol 50 MG TABLET PO PRN (08:15)
[2019-05-29] MEDS: guaiFENesin/DM ER 600-30 MG TABLET PO PRN (08:15)
[2019-05-29] MEDS: SUCRALFATE 1 GM TABLET PO SCH (08:15)
[2019-05-29] MEDS: GABAPENTIN 600 MG TABLET PO SCH (08:15)
[2019-05-29] MEDS: amLODIPine 5 MG TABLET PO SCH (08:15)
[2019-05-29] MEDS ORDERED: AZITHROMYCIN 250 MG TABLET PO SCH (09:00)
== END 2019-05-29 12:29 | disposition home or self-care (01) | DRG 917 ==
LOC: EDBD → EDUNIT# → N.ED 16:10 → N.EDINP 19:39 → N.CC 20:51 → N.5E 05-27 14:22
PROVIDERS: ADMIT Internal Medicine; ATTEND Internal Medicine

== ENCOUNTER 2019-07-05 22:00 | Inpatient (IN) ==
[2019-07-05] MEDS ORDERED: MORPHINE 4 MG/1 ML VIAL IV STA (22:27)
[2019-07-05] MEDS ORDERED: ONDANSETRON 4 MG/2 ML VIAL IV STA (22:27)
[2019-07-05] MEDS ORDERED: SODIUM CHLORIDE 0.9% 1,000 ML IV STA (22:27)
[2019-07-06 00:16] LABS: Basophils # 0.1 10*3/uL (0.0-0.2); Basophils % 0.7 % (0.0-0.8); Eosinophils # 0.1 10*3/uL (0.0-0.87); Eosinophils % 0.9 % (0.00-10.9); Hematocrit 31.8 VOL% (35.7-47.0); Hemoglobin 9.5 GM/DL (12.0-16.0); Immature Granulocytes % 0.5 %; Immature Granulocytes Absolute 0.07 #; Lymphocytes # 3.1 10*3/uL (1.4-4.0); Lymphocytes % 23.6 % (21.3-54.2); Mean Corpuscular HGB Conc 29.9 GM/DL (32-36); Mean Corpuscular Volume 91.9 FL (87-102); Mean Platelet Volume 9.9 FL (9.6-12.0); Monocytes % 3.7 % (1.7-12.7); Neutrophils % 70.6 % (38.7-73.9); Platelet Count 533 T/CUMM (130-400); Red Blood Count 3.46 MC/CUMM (3.8-5.5); Red Cell Distribution Width 16.2 % (9.3-17.3); White Blood Count 13.2 T/CUMM (4-12)
[2019-07-06 00:34] LABS: Alanine Aminotransferase 14 U/L (13-56); Albumin 1.9 G/DL (3.4-5.0); Alkaline Phosphatase 121 U/L (45-117); Aspartate Amino Transferase 22 U/L (0-37); Bilirubin,Total < 0.39 MG/DL (0.2-1.0); Blood Urea Nitrogen 19 MG/DL (7-18); Calcium 7.7 MG/DL (8.5-10.1); Estimated Glom Filtration Rate 44 ML/MIN; Glucose 110 MG/DL (74-106); Osmolality,Calculated 292.6 MOS/KG (273-304); Total Protein 5.6 G/DL (6.4-8.3)
[2019-07-06] MEDS ORDERED: hydrALAZINE 20 MG/1 ML VIAL IV STA (01:22)
[2019-07-06] MEDS ORDERED: MORPHINE 4 MG/1 ML VIAL IV STA (01:22)
[2019-07-06] MEDS ORDERED: DIPHENOXYLATE/ATROPINE 2.5-0.025 MG TABLET PO STA (01:22)
[2019-07-06] MEDS ORDERED: ACETAMINOPHEN 325 MG TABLET PO PRN (02:08)
[2019-07-06] MEDS ORDERED: PROMETHAZINE 25 MG/1 ML VIAL IM PRN (02:08)
[2019-07-06 02:29] LABS: Apearance,Urine CLEAR (Clear); Bacteria,Urine Occasional /HPF (Few); Bilirubin,Urine Negative (Negative); Blood, Urine Small mg/dL (Negative); Glucose,Urine (UA) 150 mg/dL (Negative); Hyaline Casts,Urine 5 /LPF (0-3); Ketones,Urine 5 mg/dL (Negative); Mucus,Urine Occasional /LPF (Occasional); Nitrite,Urine Negative (Negative); Protein,Urine >=500 MG/DL; RBC,Urine 5 /HPF (0-4); Squamous Epithelial Cell,Urine Occasional /HPF (0-10); Urine Color Yellow (Yellow); Urine Specific Gravity 1.016 (1.001-1.035); Urine Urobilinogen < 2.0 EU/DL (0.2-1.0); WBC,Urine 2 /HPF (0-6)
[2019-07-06] MEDS: SODIUM CHLORIDE 0.9% 1,000 ML IV SCH ×3 (04:05→18:09)
[2019-07-06] MEDS: FAMOTIDINE 20 MG/2 ML VIAL IV SCH ×2 (04:05→09:10)
[2019-07-06] MEDS ORDERED: GLUCAGON 1 MG VIAL IM PRN (04:44)
[2019-07-06] MEDS ORDERED: DEXTROSE 50% 25 GM/50 ML VIAL IV PRN (04:44)
[2019-07-06] MEDS: ONDANSETRON 4 MG/2 ML VIAL IV PRN ×2 (06:22→09:05)
[2019-07-06] MEDS: MORPHINE 4 MG/1 ML VIAL IV PRN ×4 (06:25→18:10)
[2019-07-06] MEDS ORDERED: NICOTINE 14 MG/24 HR PATCH TRANSDERM SCH (09:00)
[2019-07-06] MEDS: NICOTINE 21 MG/24 HR PATCH TRANSDERM PRN (09:11)
[2019-07-06] MEDS: amLODIPine 5 MG TABLET PO SCH (09:11)
[2019-07-06] MEDS: VALSARTAN 160 MG TABLET PO SCH (09:11)
[2019-07-06] MEDS: GABAPENTIN 400 MG CAPSULE PO SCH ×3 (09:11→21:13)
[2019-07-06] MEDS: INSULIN ASPART PROTAMINE/ASPART 70/30 100 UNIT/ML SUBCUT SCH ×2 (09:12→17:35)
[2019-07-06] MEDS: INSULIN REGULAR 100 UNIT/ML SUBCUT SCH ×3 (09:13→16:12)
[2019-07-06] MEDS: VALSARTAN/HCTZ 160-12.5 MG TABLET PO SCH (09:20)
[2019-07-06 10:18] LABS: Basophils # 0.1 10*3/uL (0.0-0.2); Basophils % 0.7 % (0.0-0.8); Eosinophils # 0.2 10*3/uL (0.0-0.87); Eosinophils % 1.4 % (0.00-10.9); Hematocrit 30.9 VOL% (35.7-47.0); Hemoglobin 9.5 GM/DL (12.0-16.0); Immature Granulocytes % 0.4 %; Immature Granulocytes Absolute 0.05 #; Lymphocytes # 3.7 10*3/uL (1.4-4.0); Mean Corpuscular HGB Conc 30.7 GM/DL (32-36); Mean Corpuscular Volume 90.6 FL (87-102); Mean Platelet Volume 10.3 FL (9.6-12.0); Monocytes % 4.2 % (1.7-12.7); Neutrophils % 65.3 % (38.7-73.9); Platelet Count 526 T/CUMM (130-400); Red Blood Count 3.41 MC/CUMM (3.8-5.5); Red Cell Distribution Width 16.2 % (9.3-17.3); White Blood Count 13.2 T/CUMM (4-12)
[2019-07-06 10:33] LABS: Alanine Aminotransferase 13 U/L (13-56); Albumin 1.9 G/DL (3.4-5.0); Alkaline Phosphatase 119 U/L (45-117); Aspartate Amino Transferase 21 U/L (0-37); Bilirubin,Total < 0.39 MG/DL (0.2-1.0); Blood Urea Nitrogen 19 MG/DL (7-18); Calcium 7.5 MG/DL (8.5-10.1); Estimated Glom Filtration Rate 41 ML/MIN; Glucose 86 MG/DL (74-106); Osmolality,Calculated 288.7 MOS/KG (273-304); Total Protein 5.4 G/DL (6.4-8.3)
[2019-07-06 17:03] LABS: Protein/Creatinine Ratio,Urine 21.7 RATIO
[2019-07-06] MEDS: traMADol 50 MG TABLET PO PRN (22:38)
[2019-07-07] MEDS: INSULIN REGULAR 100 UNIT/ML SUBCUT SCH ×5 (01:23→22:36)
[2019-07-07] MEDS: METOCLOPRAMIDE 10 MG/2 ML VIAL IV SCH ×2 (01:24→06:13)
[2019-07-07] MEDS: SODIUM CHLORIDE 0.9% 1,000 ML IV SCH ×3 (06:12→15:09)
[2019-07-07] MEDS ORDERED: GLUCAGON 1 MG VIAL IM PRN (07:09)
[2019-07-07] MEDS ORDERED: DEXTROSE 50% 25 GM/50 ML VIAL IV PRN ×2 (07:09→07:20)
[2019-07-07] MEDS: traMADol 50 MG TABLET PO PRN ×2 (08:30→15:04)
[2019-07-07] MEDS: VALSARTAN/HCTZ 160-12.5 MG TABLET PO SCH (08:30)
[2019-07-07] MEDS: VALSARTAN 160 MG TABLET PO SCH (08:31)
[2019-07-07] MEDS: PANTOPRAZOLE 40 MG TABLET PO SCH ×2 (08:31→20:22)
[2019-07-07] MEDS: GABAPENTIN 400 MG CAPSULE PO SCH ×3 (08:31→20:22)
[2019-07-07] MEDS: amLODIPine 5 MG TABLET PO SCH (08:31)
[2019-07-07] MEDS: INSULIN ASPART PROTAMINE/ASPART 70/30 100 UNIT/ML SUBCUT SCH ×2 (08:35→16:47)
[2019-07-07] MEDS ORDERED: PANTOPRAZOLE 40 MG VIAL IV SCH (09:00)
[2019-07-07 11:11] LABS: Basophils # 0.1 10*3/uL (0.0-0.2); Basophils % 0.8 % (0.0-0.8); Eosinophils # 0.2 10*3/uL (0.0-0.87); Eosinophils % 1.6 % (0.00-10.9); Hematocrit 31.6 VOL% (35.7-47.0); Hemoglobin 9.5 GM/DL (12.0-16.0); Immature Granulocytes % 1.4 %; Immature Granulocytes Absolute 0.17 #; Lymphocytes # 2.7 10*3/uL (1.4-4.0); Lymphocytes % 21.8 % (21.3-54.2); Mean Corpuscular HGB Conc 30.1 GM/DL (32-36); Mean Corpuscular Volume 92.4 FL (87-102); Mean Platelet Volume 10.1 FL (9.6-12.0); Monocytes % 4.5 % (1.7-12.7); Neutrophils % 69.9 % (38.7-73.9); Platelet Count 512 T/CUMM (130-400); Red Blood Count 3.42 MC/CUMM (3.8-5.5); Red Cell Distribution Width 16.5 % (9.3-17.3); White Blood Count 12.2 T/CUMM (4-12)
[2019-07-07 11:39] LABS: Calcium 7.5 MG/DL (8.5-10.1); Osmolality,Calculated 285.3 MOS/KG (273-304)
[2019-07-07] MEDS: METOCLOPRAMIDE 10 MG/10 ML UDCUP PO SCH ×3 (12:03→20:22)
[2019-07-07] MEDS: NICOTINE 21 MG/24 HR PATCH TRANSDERM PRN (12:06)
[2019-07-07] MEDS ORDERED: cefTRIAXone 1,000 MG in SYRINGE 1 EACH IV ONE (16:18)
[2019-07-07] MEDS: VANCOMYCIN 50 MG/ML 60 ML/BOTTLE PO SCH ×2 (16:33→20:23)
[2019-07-07] MEDS: HYDROmorphone 2 MG/1 ML VIAL IV PRN ×2 (16:34→20:23)
[2019-07-07 18:17] LABS: Total Protein 5.7 G/DL (6.4-8.3)
[2019-07-07 19:12] LABS: Hepatitis B Core IgM Quant 0.23 Index; Hepatitis B Surface Ag Quant < 0.10 Index; Hepatitis B Surface Ag Result Negative (Negative); Hepatitis C Virus Ab Quant < 0.02 Index; Hepatitis C Virus Ab Result Negative (Negative)
[2019-07-08] MEDS: HYDROmorphone 2 MG/1 ML VIAL IV PRN ×4 (01:03→21:19)
[2019-07-08] MEDS: SODIUM CHLORIDE 0.9% 1,000 ML IV SCH ×2 (02:31→11:36)
[2019-07-08] MEDS: VANCOMYCIN 50 MG/ML 60 ML/BOTTLE PO SCH ×4 (02:33→21:18)
[2019-07-08 05:33] LABS: Total Protein (Chem) 5.7 G/DL (6.4-8.3)
[2019-07-08 06:29] LABS: Creatinine,Urine Random 66 MG/DL; Total Protein,Urine Random 1006 MG/DL; Urea Nitrogen, Urine Random 237 MG/DL
[2019-07-08 06:33] LABS: Basophils # 0.1 10*3/uL (0.0-0.2); Basophils % 0.7 % (0.0-0.8); Eosinophils # 0.3 10*3/uL (0.0-0.87); Hematocrit 28.6 VOL% (35.7-47.0); Hemoglobin 8.5 GM/DL (12.0-16.0); Immature Granulocytes % 1.9 %; Lymphocytes # 3.8 10*3/uL (1.4-4.0); Lymphocytes % 24.5 % (21.3-54.2); Mean Corpuscular HGB Conc 29.7 GM/DL (32-36); Mean Corpuscular Volume 93.5 FL (87-102); Mean Platelet Volume 10.7 FL (9.6-12.0); Monocytes % 4.7 % (1.7-12.7); Neutrophils % 66.2 % (38.7-73.9); Platelet Count 389 T/CUMM (130-400); Red Blood Count 3.06 MC/CUMM (3.8-5.5); Red Cell Distribution Width 16.6 % (9.3-17.3); White Blood Count 15.5 T/CUMM (4-12)
[2019-07-08] MEDS: PANTOPRAZOLE 40 MG TABLET PO SCH ×2 (06:33→18:21)
[2019-07-08 06:55] LABS: RPR Confirm - Less than 1 yr NONREACTIVE (Nonreactive)
[2019-07-08 07:01] LABS: Calcium 7.4 MG/DL (8.5-10.1)
[2019-07-08 08:45] LABS: Albumin (SPE) 2.9 G/DL (3.2-5.3); Albumin (SPE) Rel % 51.1 %; Alpha 1 (SPE) 0.3 G/DL (0.1-0.4); Alpha 1 (SPE) Rel % 4.5 %; Alpha 2 (SPE) 1.1 G/DL (0.4-1.0); Alpha 2 (SPE) Rel % 19.2 %; Beta (SPE) 0.9 G/DL (0.5-1.1); Beta (SPE) Rel % 15.8 %; Gamma (SPE) 0.5 G/DL (0.7-1.7); Gamma (SPE) Rel % 9.4 %
[2019-07-08] MEDS ORDERED: cefTRIAXone 1,000 MG VIAL ONE (08:55)
[2019-07-08 08:57] LABS: Albumin (UPER) 678.6 MG/DL; Albumin (UPER) Rel% 66.6 %; Alpha 1 (UPER) 87.6 MG/DL; Alpha 1 (UPER) Rel% 8.6 %; Alpha 2 (UPER) 70.3 MG/DL; Alpha 2 (UPER) Rel % 6.9 %; Beta (UPER) 102.9 MG/DL; Beta (UPER) Rel % 10.1 %; Gamma (UPER) 79.5 MG/DL; Gamma (UPER) Rel % 7.8 %
[2019-07-08 09:33] LABS: Random Urine Protein (Bench) 1019 MG/DL (<11.9)
[2019-07-08 09:36] LABS: Immuno Free Light Chain Lambda 6.32 MG/DL (0.57-2.63); Immuno Free Light Chain Ratio 1.46 MG/DL (0.26-1.65)
[2019-07-08] MEDS ORDERED: ALBUTEROL/IPRATROPIUM 3 ML NEB RESP TX ONE (09:48)
[2019-07-08] MEDS: VALSARTAN/HCTZ 160-12.5 MG TABLET PO SCH (10:03)
[2019-07-08] MEDS ORDERED: SEVOFLURANE 1 UNIT/15 MINUTE INH ONE (10:04)
[2019-07-08] MEDS: GABAPENTIN 400 MG CAPSULE PO SCH (10:04)
[2019-07-08] MEDS: INSULIN REGULAR 100 UNIT/ML SUBCUT SCH ×4 (10:04→21:19)
[2019-07-08] MEDS ORDERED: MIDAZOLAM 2 MG/2 ML VIAL ONE (10:04)
[2019-07-08] MEDS ORDERED: PHENYLEPHRINE 1 MG/10 ML SYRINGE IV ONE (10:04)
[2019-07-08] MEDS ORDERED: fentaNYL 100 MCG/2 ML VIAL ONE (10:04)
[2019-07-08] MEDS ORDERED: propofoL 200 MG/20 ML VIAL IV ONE (10:04)
[2019-07-08] MEDS ORDERED: ONDANSETRON 4 MG/2 ML VIAL ONE (10:04)
[2019-07-08] MEDS ORDERED: SODIUM CHLORIDE 0.9% 1,000 ML IV ONE (10:04)
[2019-07-08] MEDS: METOCLOPRAMIDE 10 MG/10 ML UDCUP PO SCH ×4 (11:34→21:16)
[2019-07-08] MEDS: INSULIN ASPART PROTAMINE/ASPART 70/30 100 UNIT/ML SUBCUT SCH ×2 (11:35→16:56)
[2019-07-08] MEDS: amLODIPine 5 MG TABLET PO SCH (12:13)
[2019-07-08] MEDS: SODIUM BICARB INJ 150 MEQ in STERILE WATER INJ 850 ML IV SCH ×3 (12:14→21:45)
[2019-07-08] MEDS: VALSARTAN 160 MG TABLET PO SCH (12:14)
[2019-07-08] MEDS: NICOTINE 21 MG/24 HR PATCH TRANSDERM PRN (14:17)
[2019-07-08] MEDS: GABAPENTIN 600 MG TABLET PO SCH (21:18)
[2019-07-09] MEDS: HYDROmorphone 2 MG/1 ML VIAL IV PRN ×6 (01:21→22:34)
[2019-07-09 05:00] LABS: Basophils # 0.1 10*3/uL (0.0-0.2); Basophils % 0.7 % (0.0-0.8); Eosinophils # 0.3 10*3/uL (0.0-0.87); Hematocrit 26.1 VOL% (35.7-47.0); Hemoglobin 7.8 GM/DL (12.0-16.0); Immature Granulocytes % 0.9 %; Immature Granulocytes Absolute 0.12 #; Lymphocytes # 3.6 10*3/uL (1.4-4.0); Lymphocytes % 26.3 % (21.3-54.2); Mean Corpuscular HGB Conc 29.9 GM/DL (32-36); Mean Corpuscular Volume 92.2 FL (87-102); Mean Platelet Volume 10.2 FL (9.6-12.0); Monocytes % 5.3 % (1.7-12.7); Neutrophils % 64.8 % (38.7-73.9); Platelet Count 398 T/CUMM (130-400); Red Blood Count 2.83 MC/CUMM (3.8-5.5); Red Cell Distribution Width 16.4 % (9.3-17.3); White Blood Count 13.7 T/CUMM (4-12)
[2019-07-09] MEDS: VANCOMYCIN 50 MG/ML 60 ML/BOTTLE PO SCH ×4 (05:05→20:16)
[2019-07-09] MEDS: SODIUM BICARB INJ 150 MEQ in STERILE WATER INJ 850 ML IV SCH ×2 (05:05→12:38)
[2019-07-09 05:40] LABS: Albumin 1.7 G/DL (3.4-5.0); Calcium 7.2 MG/DL (8.5-10.1)
[2019-07-09] MEDS: PANTOPRAZOLE 40 MG TABLET PO SCH ×2 (06:31→18:14)
[2019-07-09] MEDS: INSULIN ASPART PROTAMINE/ASPART 70/30 100 UNIT/ML SUBCUT SCH ×2 (07:20→15:43)
[2019-07-09] MEDS: INSULIN REGULAR 100 UNIT/ML SUBCUT SCH ×4 (07:20→21:07)
[2019-07-09] MEDS: METOCLOPRAMIDE 10 MG/10 ML UDCUP PO SCH ×4 (09:33→20:15)
[2019-07-09] MEDS: VALSARTAN 160 MG TABLET PO SCH (09:34)
[2019-07-09] MEDS: GABAPENTIN 600 MG TABLET PO SCH ×2 (09:34→20:14)
[2019-07-09] MEDS: amLODIPine 5 MG TABLET PO SCH (09:34)
[2019-07-09] MEDS: METOPROLOL SUCCINATE XL 25 MG TABLET PO SCH (14:29)
[2019-07-09] MEDS: NICOTINE 21 MG/24 HR PATCH TRANSDERM PRN (17:22)
[2019-07-09] MEDS: ALBUMIN 25% 12.5 GM in PREMIX 1 EACH IV SCH (17:23)
[2019-07-10] MEDS: HYDROmorphone 2 MG/1 ML VIAL IV PRN ×6 (02:16→20:15)
[2019-07-10] MEDS: VANCOMYCIN 50 MG/ML 60 ML/BOTTLE PO SCH ×5 (02:17→20:21)
[2019-07-10 02:53] LABS: Basophils # 0.1 10*3/uL (0.0-0.2); Basophils % 0.5 % (0.0-0.8); Eosinophils # 0.2 10*3/uL (0.0-0.87); Eosinophils % 1.9 % (0.00-10.9); Hematocrit 25.2 VOL% (35.7-47.0); Hemoglobin 7.8 GM/DL (12.0-16.0); Immature Granulocytes % 0.4 %; Immature Granulocytes Absolute 0.04 #; Lymphocytes # 2.9 10*3/uL (1.4-4.0); Lymphocytes % 26.1 % (21.3-54.2); Mean Platelet Volume 10.4 FL (9.6-12.0); Monocytes % 5.5 % (1.7-12.7); Neutrophils % 65.6 % (38.7-73.9); Platelet Count 386 T/CUMM (130-400); Red Blood Count 2.77 MC/CUMM (3.8-5.5); Red Cell Distribution Width 16.5 % (9.3-17.3); White Blood Count 11.2 T/CUMM (4-12)
[2019-07-10 03:11] LABS: Albumin 1.9 G/DL (3.4-5.0); Calcium 7.3 MG/DL (8.5-10.1); Osmolality,Calculated 293.4 MOS/KG (273-304)
[2019-07-10] MEDS: ALBUMIN 25% 12.5 GM in PREMIX 1 EACH IV SCH ×2 (04:01→15:55)
[2019-07-10] MEDS ORDERED: hydrALAZINE 20 MG/1 ML VIAL IV ONE (05:35)
[2019-07-10] MEDS: PANTOPRAZOLE 40 MG TABLET PO SCH ×2 (05:58→18:02)
[2019-07-10] MEDS: INSULIN REGULAR 100 UNIT/ML SUBCUT SCH ×4 (07:29→22:38)
[2019-07-10] MEDS: SODIUM BICARB INJ 150 MEQ in STERILE WATER INJ 850 ML IV SCH ×3 (07:29→23:13)
[2019-07-10] MEDS: INSULIN ASPART PROTAMINE/ASPART 70/30 100 UNIT/ML SUBCUT SCH ×2 (07:36→18:06)
[2019-07-10] MEDS ORDERED: FUROSEMIDE 20 MG/2 ML VIAL ONE (08:36)
[2019-07-10] MEDS: METOCLOPRAMIDE 10 MG/10 ML UDCUP PO SCH ×4 (08:51→20:24)
[2019-07-10] MEDS: amLODIPine 5 MG TABLET PO SCH (08:52)
[2019-07-10] MEDS: METOPROLOL SUCCINATE XL 25 MG TABLET PO SCH (08:52)
[2019-07-10] MEDS: GABAPENTIN 600 MG TABLET PO SCH ×2 (08:52→20:23)
[2019-07-10] MEDS: FUROSEMIDE 40 MG/4 ML VIAL IV SCH ×2 (08:53→15:52)
[2019-07-10] MEDS: VALSARTAN 160 MG TABLET PO SCH (09:01)
[2019-07-10] MEDS: ISOSORBIDE MONONITRATE 30 MG TABLET PO SCH ×2 (10:18→20:23)
[2019-07-10] MEDS: ONDANSETRON 4 MG/2 ML VIAL IV PRN ×3 (12:06→20:19)
[2019-07-10] MEDS: traMADol 50 MG TABLET PO PRN (22:40)
[2019-07-11] MEDS: HYDROmorphone 2 MG/1 ML VIAL IV PRN ×6 (00:25→21:50)
[2019-07-11] MEDS ORDERED: HYDROmorphone 2 MG/1 ML VIAL IV ONE (01:09)
[2019-07-11] MEDS: ALBUMIN 25% 12.5 GM in PREMIX 1 EACH IV SCH (04:00)
[2019-07-11] MEDS: VANCOMYCIN 50 MG/ML 60 ML/BOTTLE PO SCH ×4 (04:00→21:51)
[2019-07-11 05:16] LABS: Albumin 2.1 G/DL (3.4-5.0); Calcium 7.6 MG/DL (8.5-10.1)
[2019-07-11 07:25] LABS: Basophils # 0.1 10*3/uL (0.0-0.2); Basophils % 0.6 % (0.0-0.8); Eosinophils # 0.2 10*3/uL (0.0-0.87); Eosinophils % 1.6 % (0.00-10.9); Hematocrit 26.7 VOL% (35.7-47.0); Hemoglobin 7.9 GM/DL (12.0-16.0); Immature Granulocytes % 0.5 %; Immature Granulocytes Absolute 0.06 #; Lymphocytes # 3.5 10*3/uL (1.4-4.0); Lymphocytes % 29.1 % (21.3-54.2); Mean Corpuscular HGB Conc 29.6 GM/DL (32-36); Mean Corpuscular Volume 93.4 FL (87-102); Mean Platelet Volume 10.5 FL (9.6-12.0); Monocytes % 5.2 % (1.7-12.7); Platelet Count 416 T/CUMM (130-400); Red Blood Count 2.86 MC/CUMM (3.8-5.5); Red Cell Distribution Width 16.3 % (9.3-17.3); White Blood Count 12.2 T/CUMM (4-12)
[2019-07-11] MEDS: FUROSEMIDE 40 MG/4 ML VIAL IV SCH ×2 (08:27→15:42)
[2019-07-11] MEDS: METOPROLOL SUCCINATE XL 25 MG TABLET PO SCH (08:30)
[2019-07-11] MEDS: VALSARTAN 160 MG TABLET PO SCH (08:30)
[2019-07-11] MEDS: METOCLOPRAMIDE 10 MG/10 ML UDCUP PO SCH ×4 (08:30→21:50)
[2019-07-11] MEDS: ISOSORBIDE MONONITRATE 30 MG TABLET PO SCH ×2 (08:31→21:51)
[2019-07-11] MEDS: GABAPENTIN 600 MG TABLET PO SCH ×2 (08:31→21:51)
[2019-07-11] MEDS: PANTOPRAZOLE 40 MG TABLET PO SCH ×2 (08:31→18:06)
[2019-07-11] MEDS: INSULIN ASPART PROTAMINE/ASPART 70/30 100 UNIT/ML SUBCUT SCH ×2 (08:39→16:45)
[2019-07-11] MEDS: INSULIN REGULAR 100 UNIT/ML SUBCUT SCH ×4 (09:38→21:51)
[2019-07-11] MEDS: ONDANSETRON 4 MG/2 ML VIAL IV PRN ×2 (10:12→16:42)
[2019-07-11] MEDS: SODIUM BICARB INJ 150 MEQ in STERILE WATER INJ 850 ML IV SCH (10:59)
[2019-07-12] MEDS: ONDANSETRON 4 MG/2 ML VIAL IV PRN (01:17)
[2019-07-12] MEDS: HYDROmorphone 2 MG/1 ML VIAL IV PRN ×5 (01:19→20:15)
[2019-07-12] MEDS: VANCOMYCIN 50 MG/ML 60 ML/BOTTLE PO SCH ×4 (03:53→21:13)
[2019-07-12] MEDS: PANTOPRAZOLE 40 MG TABLET PO SCH ×2 (05:35→18:31)
[2019-07-12 05:36] LABS: Basophils # 0.1 10*3/uL (0.0-0.2); Basophils % 0.5 % (0.0-0.8); Eosinophils # 0.2 10*3/uL (0.0-0.87); Eosinophils % 1.8 % (0.00-10.9); Hemoglobin 7.2 GM/DL (12.0-16.0); Immature Granulocytes % 0.5 %; Immature Granulocytes Absolute 0.06 #; Lymphocytes # 2.7 10*3/uL (1.4-4.0); Lymphocytes % 23.3 % (21.3-54.2); Mean Corpuscular Volume 92.7 FL (87-102); Mean Platelet Volume 10.1 FL (9.6-12.0); Neutrophils % 68.9 % (38.7-73.9); Platelet Count 395 T/CUMM (130-400); Red Blood Count 2.59 MC/CUMM (3.8-5.5); Red Cell Distribution Width 16.3 % (9.3-17.3); White Blood Count 11.7 T/CUMM (4-12)
[2019-07-12 05:52] LABS: Calcium 7.7 MG/DL (8.5-10.1)
[2019-07-12 05:53] LABS: Albumin 1.9 G/DL (3.4-5.0); Calcium 7.6 MG/DL (8.5-10.1); Osmolality,Calculated 292.8 MOS/KG (273-304)
[2019-07-12] MEDS ORDERED: SODIUM CHLORIDE 0.9% 1,000 ML IV PRN (06:51)
[2019-07-12] MEDS: GABAPENTIN 600 MG TABLET PO SCH (08:17)
[2019-07-12] MEDS: ISOSORBIDE MONONITRATE 30 MG TABLET PO SCH ×2 (08:17→20:15)
[2019-07-12] MEDS: METOCLOPRAMIDE 10 MG/10 ML UDCUP PO SCH ×4 (08:17→20:15)
[2019-07-12] MEDS: INSULIN ASPART PROTAMINE/ASPART 70/30 100 UNIT/ML SUBCUT SCH ×2 (08:18→17:04)
[2019-07-12] MEDS: FUROSEMIDE 40 MG/4 ML VIAL IV SCH ×2 (08:45→16:20)
[2019-07-12] MEDS: METOPROLOL SUCCINATE XL 50 MG TABLET PO SCH (08:46)
[2019-07-12] MEDS: SODIUM CHLORIDE 0.9% 1,000 ML IV SCH ×2 (09:18→18:31)
[2019-07-12 10:31] LABS: Cryoglobulin, S Negative %ppt (Negative)
[2019-07-12 11:34] LABS: Creatinine,Urine Random 23 MG/DL; Urea Nitrogen, Urine Random 98 MG/DL
[2019-07-12] MEDS: INSULIN REGULAR 100 UNIT/ML SUBCUT SCH ×4 (11:49→22:18)
[2019-07-12 11:59] LABS: Total Protein,Urine Random 425 MG/DL
[2019-07-12] MEDS: NICOTINE 21 MG/24 HR PATCH TRANSDERM PRN (16:18)
[2019-07-12 19:10] LABS: Hematocrit 32.6 VOL% (35.7-47.0)
[2019-07-12 19:11] LABS: Hemoglobin 10.3 GM/DL (12.0-16.0)
[2019-07-12] MEDS: oxyCODONE/ACETAMINOPHEN 5-325 MG TABLET PO PRN (22:52)
[2019-07-13] MEDS: HYDROmorphone 2 MG/1 ML VIAL IV PRN ×8 (01:01→23:16)
[2019-07-13] MEDS: VANCOMYCIN 50 MG/ML 60 ML/BOTTLE PO SCH ×4 (03:27→21:12)
[2019-07-13] MEDS: SODIUM CHLORIDE 0.9% 1,000 ML IV SCH (03:27)
[2019-07-13] MEDS: ONDANSETRON 4 MG/2 ML VIAL IV PRN (05:09)
[2019-07-13 05:52] LABS: Basophils # 0.1 10*3/uL (0.0-0.2); Basophils % 0.6 % (0.0-0.8); Eosinophils # 0.3 10*3/uL (0.0-0.87); Eosinophils % 2.7 % (0.00-10.9); Hematocrit 30.4 VOL% (35.7-47.0); Hemoglobin 9.5 GM/DL (12.0-16.0); Immature Granulocytes % 0.5 %; Immature Granulocytes Absolute 0.06 #; Lymphocytes # 2.7 10*3/uL (1.4-4.0); Lymphocytes % 22.6 % (21.3-54.2); Mean Corpuscular HGB Conc 31.3 GM/DL (32-36); Mean Platelet Volume 9.7 FL (9.6-12.0); Monocytes % 5.7 % (1.7-12.7); Neutrophils % 67.9 % (38.7-73.9); Platelet Count 397 T/CUMM (130-400); Red Blood Count 3.27 MC/CUMM (3.8-5.5); Red Cell Distribution Width 15.7 % (9.3-17.3); White Blood Count 11.8 T/CUMM (4-12)
[2019-07-13] MEDS ORDERED: FAMOTIDINE 20 MG TABLET PO ONE (06:00)
[2019-07-13] MEDS ORDERED: DIAZEPAM 5 MG TABLET PO ONE (06:00)
[2019-07-13 06:11] LABS: Calcium 7.5 MG/DL (8.5-10.1)
[2019-07-13] MEDS: PANTOPRAZOLE 40 MG TABLET PO SCH ×2 (06:11→17:30)
[2019-07-13] MEDS ORDERED: cefTRIAXone 1,000 MG in SYRINGE 1 EACH IV ONE (07:00)
[2019-07-13] MEDS ORDERED: propofoL 200 MG/20 ML VIAL IV ONE (07:55)
[2019-07-13] MEDS ORDERED: MIDAZOLAM 2 MG/2 ML VIAL ONE (07:55)
[2019-07-13] MEDS ORDERED: fentaNYL 100 MCG/2 ML VIAL ONE (07:56)
[2019-07-13] MEDS ORDERED: DEXTROSE 50% 25 GM/50 ML VIAL IV PRN (09:46)
[2019-07-13] MEDS: ISOSORBIDE MONONITRATE 30 MG TABLET PO SCH ×2 (09:50→21:12)
[2019-07-13] MEDS: INSULIN REGULAR 100 UNIT/ML SUBCUT SCH ×4 (09:50→21:36)
[2019-07-13] MEDS: METOCLOPRAMIDE 10 MG/10 ML UDCUP PO SCH ×4 (09:50→21:12)
[2019-07-13] MEDS: INSULIN ASPART PROTAMINE/ASPART 70/30 100 UNIT/ML SUBCUT SCH ×2 (09:50→17:19)
[2019-07-13] MEDS: GABAPENTIN 600 MG TABLET PO SCH ×2 (09:51→21:30)
[2019-07-13] MEDS: METOPROLOL SUCCINATE XL 50 MG TABLET PO SCH (09:51)
[2019-07-13] MEDS: FUROSEMIDE 40 MG/4 ML VIAL IV SCH (09:53)
[2019-07-13] MEDS: ALBUMIN 25% 25 GM in PREMIX 1 EACH IV SCH ×2 (10:40→17:20)
[2019-07-13] MEDS: SODIUM BICARB INJ 150 MEQ in STERILE WATER INJ 850 ML IV SCH ×2 (12:13→20:38)
[2019-07-13] MEDS: oxyCODONE/ACETAMINOPHEN 5-325 MG TABLET PO PRN ×2 (13:19→22:08)
[2019-07-14] MEDS: HYDROmorphone 2 MG/1 ML VIAL IV PRN ×8 (01:20→21:35)
[2019-07-14] MEDS: ALBUMIN 25% 25 GM in PREMIX 1 EACH IV SCH ×3 (01:21→16:25)
[2019-07-14] MEDS: VANCOMYCIN 50 MG/ML 60 ML/BOTTLE PO SCH ×4 (03:22→21:38)
[2019-07-14] MEDS: oxyCODONE/ACETAMINOPHEN 5-325 MG TABLET PO PRN ×2 (04:27→12:35)
[2019-07-14] MEDS: SODIUM BICARB INJ 150 MEQ in STERILE WATER INJ 850 ML IV SCH ×2 (05:12→16:20)
[2019-07-14] MEDS: PANTOPRAZOLE 40 MG TABLET PO SCH ×2 (05:34→18:47)
[2019-07-14 07:57] LABS: Basophils # 0.1 10*3/uL (0.0-0.2); Basophils % 0.6 % (0.0-0.8); Eosinophils # 0.4 10*3/uL (0.0-0.87); Eosinophils % 3.5 % (0.00-10.9); Hematocrit 30.8 VOL% (35.7-47.0); Hemoglobin 9.6 GM/DL (12.0-16.0); Immature Granulocytes % 0.3 %; Immature Granulocytes Absolute 0.03 #; Lymphocytes % 29.2 % (21.3-54.2); Mean Corpuscular HGB Conc 31.2 GM/DL (32-36); Mean Corpuscular Volume 93.3 FL (87-102); Monocytes % 7.2 % (1.7-12.7); Neutrophils % 59.2 % (38.7-73.9); Platelet Count 408 T/CUMM (130-400); Red Cell Distribution Width 15.9 % (9.3-17.3); White Blood Count 10.3 T/CUMM (4-12)
[2019-07-14] MEDS: INSULIN REGULAR 100 UNIT/ML SUBCUT SCH ×4 (08:17→22:59)
[2019-07-14 08:18] LABS: Calcium 7.7 MG/DL (8.5-10.1); Osmolality,Calculated 286.3 MOS/KG (273-304)
[2019-07-14] MEDS: GABAPENTIN 600 MG TABLET PO SCH ×2 (08:19→21:38)
[2019-07-14] MEDS: ISOSORBIDE MONONITRATE 30 MG TABLET PO SCH ×2 (08:19→21:37)
[2019-07-14] MEDS: METOCLOPRAMIDE 10 MG/10 ML UDCUP PO SCH ×4 (08:19→21:37)
[2019-07-14] MEDS: METOPROLOL SUCCINATE XL 50 MG TABLET PO SCH (08:19)
[2019-07-14] MEDS: INSULIN ASPART PROTAMINE/ASPART 70/30 100 UNIT/ML SUBCUT SCH ×2 (08:20→16:48)
[2019-07-14] MEDS: LOSARTAN 50 MG TABLET PO SCH (14:47)
[2019-07-14] MEDS: ONDANSETRON 4 MG/2 ML VIAL IV PRN (16:19)
[2019-07-15] MEDS: HYDROmorphone 2 MG/1 ML VIAL IV PRN ×3 (00:33→08:38)
[2019-07-15] MEDS: ALBUMIN 25% 25 GM in PREMIX 1 EACH IV SCH ×3 (00:36→10:13)
[2019-07-15] MEDS: VANCOMYCIN 50 MG/ML 60 ML/BOTTLE PO SCH ×3 (02:49→15:36)
[2019-07-15 05:21] LABS: Basophils # 0.1 10*3/uL (0.0-0.2); Basophils % 0.7 % (0.0-0.8); Eosinophils # 0.3 10*3/uL (0.0-0.87); Eosinophils % 3.2 % (0.00-10.9); Hematocrit 28.3 VOL% (35.7-47.0); Immature Granulocytes % 0.5 %; Immature Granulocytes Absolute 0.05 #; Lymphocytes # 2.7 10*3/uL (1.4-4.0); Lymphocytes % 29.5 % (21.3-54.2); Mean Corpuscular HGB Conc 31.8 GM/DL (32-36); Mean Corpuscular Volume 93.1 FL (87-102); Mean Platelet Volume 9.9 FL (9.6-12.0); Monocytes % 5.8 % (1.7-12.7); Neutrophils % 60.3 % (38.7-73.9); Platelet Count 389 T/CUMM (130-400); Red Blood Count 3.04 MC/CUMM (3.8-5.5); Red Cell Distribution Width 16.1 % (9.3-17.3); White Blood Count 9.1 T/CUMM (4-12)
[2019-07-15 05:57] LABS: Calcium 7.5 MG/DL (8.5-10.1); Osmolality,Calculated 287.3 MOS/KG (273-304)
[2019-07-15] MEDS: SODIUM BICARB INJ 150 MEQ in STERILE WATER INJ 850 ML IV SCH (06:04)
[2019-07-15] MEDS: PANTOPRAZOLE 40 MG TABLET PO SCH (06:27)
[2019-07-15] MEDS: METOPROLOL SUCCINATE XL 50 MG TABLET PO SCH (07:23)
[2019-07-15] MEDS: LOSARTAN 50 MG TABLET PO SCH (07:23)
[2019-07-15] MEDS: GABAPENTIN 600 MG TABLET PO SCH (08:42)
[2019-07-15] MEDS: METOCLOPRAMIDE 10 MG/10 ML UDCUP PO SCH ×2 (08:42→12:38)
[2019-07-15] MEDS: ISOSORBIDE MONONITRATE 30 MG TABLET PO SCH (08:42)
[2019-07-15] MEDS: INSULIN REGULAR 100 UNIT/ML SUBCUT SCH ×2 (08:43→12:39)
[2019-07-15] MEDS: ONDANSETRON 4 MG/2 ML VIAL IV PRN (08:45)
[2019-07-15] MEDS ORDERED: oxyCODONE/ACETAMINOPHEN 5-325 MG TABLET PO ONE (11:10)
[2019-07-15] MEDS: oxyCODONE/ACETAMINOPHEN 5-325 MG TABLET PO PRN (11:15)
[2019-07-15 11:38] VITALS: BP 181/93
[2019-07-15] MEDS ORDERED: FUROSEMIDE 80 MG TABLET PO SCH (16:00)
[2019-07-16] MEDS ORDERED: LOSARTAN 50 MG TABLET PO SCH (09:00)
== END 2019-07-15 15:52 | disposition home or self-care (01) | DRG 981 ==
LOC: EDUNIT# → EDBD → N.ED 22:00 → N.EDINP 22:00 → SUATTDRO 07-06 02:08 → N.2E 07-06 03:48 → SUATTDRO 07-08 14:44
PROVIDERS: ADMIT Internal Medicine Geriatric Medicine; ATTEND Internal Medicine

== ENCOUNTER 2019-07-17 16:39 | Inpatient (IN) ==
[2019-07-17] MEDS ORDERED: FUROSEMIDE 100 MG/10 ML VIAL IV STA (17:02)
[2019-07-17] MEDS ORDERED: methylPREDNISolone SOD SUC 125 MG/2 ML VIAL IV STA (17:02)
[2019-07-17] MEDS ORDERED: NITROGLYCERIN 2% OINT 1 INCH/GM PACK TOP STA (17:02)
[2019-07-17] MEDS ORDERED: hydrALAZINE 20 MG/1 ML VIAL IV STA (17:05)
[2019-07-17] MEDS: ALBUTEROL 2.5 MG/3 ML NEB RESP TX SCH ×2 (17:20→17:21)
[2019-07-17 17:21] LABS: Basophils # 0.1 10*3/uL (0.0-0.2); Basophils % 0.9 % (0.0-0.8); Eosinophils % 0.1 % (0.00-10.9); Hematocrit 33.4 VOL% (35.7-47.0); Hemoglobin 10.6 GM/DL (12.0-16.0); Immature Granulocytes % 1.5 %; Immature Granulocytes Absolute 0.21 #; Lymphocytes # 1.7 10*3/uL (1.4-4.0); Lymphocytes % 11.8 % (21.3-54.2); Mean Corpuscular HGB Conc 31.7 GM/DL (32-36); Mean Corpuscular Volume 92.8 FL (87-102); Mean Platelet Volume 9.7 FL (9.6-12.0); Monocytes % 4.4 % (1.7-12.7); NRBC # 0.03 10*3/uL; Neutrophils % 81.3 % (38.7-73.9); Platelet Count 493 T/CUMM (130-400); Red Cell Distribution Width 15.9 % (9.3-17.3); White Blood Count 14.4 T/CUMM (4-12)
[2019-07-17] MEDS ORDERED: MORPHINE 10 MG/1 ML VIAL IV STA (17:31)
[2019-07-17 17:32] LABS: ABG Base Excess -3.6 MMOL/L (-2.5-2.5); ABG Oxygen Saturation 73.3 % (95-100); ABG PCO2 38.4 MM HG (35-48); ABG PH 7.357 (7.35-7.45); ABG PO2 41.1 MM HG (80-95); ABG TCO2 19.6 MMOL/L (23-27); Allen Test Positive
[2019-07-17 17:42] LABS: INR 1.1; PT Patient Result 11.4 SECS (9.6-12.2); Partial Thromboplastin Time 28.5 SECS (20.8-36.0)
[2019-07-17 17:47] LABS: Alanine Aminotransferase 35 U/L (13-56); Albumin 2.9 G/DL (3.4-5.0); Alkaline Phosphatase 134 U/L (45-117); Aspartate Amino Transferase 43 U/L (0-37); Bilirubin,Total < 0.39 MG/DL (0.2-1.0); Blood Urea Nitrogen 29 MG/DL (7-18); Glucose 291 MG/DL (74-106); Total Protein 5.8 G/DL (6.4-8.3)
[2019-07-17] MEDS ORDERED: niCARdipine 25 MG/10 ML VIAL IV ONE (17:58)
[2019-07-17] MEDS: niCARdipine INJ 25 MG in SODIUM CHLORIDE 0.9% 240 ML IV PRN (18:17)
[2019-07-17 18:28] LABS: Apearance,Urine CLEAR (Clear); Bilirubin,Urine Negative (Negative); Blood, Urine Small mg/dL (Negative); Glucose,Urine (UA) >=500 mg/dL (Negative); Hyaline Casts,Urine 22 /LPF (0-3); Ketones,Urine Negative (Negative); Mucus,Urine Occasional /LPF (Occasional); Nitrite,Urine Negative (Negative); Protein,Urine >=500 MG/DL; RBC,Urine 44 /HPF (0-4); Squamous Epithelial Cell,Urine Occasional /HPF (0-10); Urine Color Yellow (Yellow); Urine Specific Gravity 1.022 (1.001-1.035); Urine Urobilinogen < 2.0 EU/DL (0.2-1.0); WBC,Urine 6 /HPF (0-6)
[2019-07-17 18:31] LABS: Barbiturates Screen,Urine Negative (Negative); Benzodiazepines Screen,Urine Positive (Negative); Cannabinoid Screen,Urine Negative (Negative); Opiate Screen,Urine Positive (Negative); Phencyclidine Screen,Urine Negative (Negative)
[2019-07-17] MEDS ORDERED: ACETAMINOPHEN 325 MG TABLET PO PRN (19:50)
[2019-07-17] MEDS ORDERED: MAGNESIUM SULF RIDER 2 GM in PREMIX 1 EACH IV PRN (19:50)
[2019-07-17] MEDS ORDERED: DEXTROSE 50% 25 GM/50 ML VIAL IV PRN (19:50)
[2019-07-17] MEDS ORDERED: MAGNESIUM SULF RIDER 4 GM in PREMIX 1 EACH IV PRN (19:50)
[2019-07-17] MEDS ORDERED: GLUCAGON 1 MG VIAL IM PRN (19:50)
[2019-07-17] MEDS ORDERED: POTASSIUM CHLORIDE RIDER 10 MEQ in PREMIX 1 EACH IV PRN (19:50)
[2019-07-17] MEDS: FUROSEMIDE 40 MG/4 ML VIAL IV SCH (23:21)
[2019-07-17] MEDS: METOCLOPRAMIDE 10 MG/10 ML UDCUP PO SCH (23:37)
[2019-07-17] MEDS: ISOSORBIDE MONONITRATE 30 MG TABLET PO SCH (23:37)
[2019-07-17] MEDS: GABAPENTIN 600 MG TABLET PO SCH (23:37)
[2019-07-17] MEDS: ENOXAPARIN 30 MG/0.3 ML SYRINGE SUBCUT SCH (23:38)
[2019-07-17] MEDS: CEFEPIME 1,000 MG in SODIUM CHLORIDE 0.9% 100 ML IV SCH (23:38)
[2019-07-17] MEDS: VANCOMYCIN 50 MG/ML 60 ML/BOTTLE PO SCH (23:47)
[2019-07-18] MEDS: ALBUTEROL/IPRATROPIUM 3 ML NEB RESP TX SCH ×4 (00:14→19:57)
[2019-07-18] MEDS: oxyCODONE/ACETAMINOPHEN 5-325 MG TABLET PO PRN ×5 (00:34→20:32)
[2019-07-18] MEDS: niCARdipine INJ 25 MG in SODIUM CHLORIDE 0.9% 240 ML IV PRN ×2 (04:30→11:32)
[2019-07-18 05:51] LABS: Basophils # 0.1 10*3/uL (0.0-0.2); Basophils % 0.6 % (0.0-0.8); Hematocrit 31.4 VOL% (35.7-47.0); Hemoglobin 10.1 GM/DL (12.0-16.0); Immature Granulocytes % 2.2 %; Immature Granulocytes Absolute 0.22 #; Lymphocytes # 0.9 10*3/uL (1.4-4.0); Lymphocytes % 8.7 % (21.3-54.2); Mean Corpuscular HGB Conc 32.2 GM/DL (32-36); Mean Corpuscular Volume 91.5 FL (87-102); Mean Platelet Volume 10.2 FL (9.6-12.0); Monocytes % 0.6 % (1.7-12.7); NRBC # 0.04 10*3/uL; Neutrophils % 87.9 % (38.7-73.9); Platelet Count 490 T/CUMM (130-400); Red Blood Count 3.43 MC/CUMM (3.8-5.5); Red Cell Distribution Width 16.1 % (9.3-17.3)
[2019-07-18 06:10] LABS: Albumin 2.4 G/DL (3.4-5.0); Bilirubin,Total 0.4 MG/DL (0.2-1.0); Calcium 7.9 MG/DL (8.5-10.1); Osmolality,Calculated 305.1 MOS/KG (273-304); Total Protein 5.6 G/DL (6.4-8.3)
[2019-07-18] MEDS: methylPREDNISolone SOD SUC 40 MG/1 ML VIAL IV SCH ×3 (06:14→22:27)
[2019-07-18] MEDS: PANTOPRAZOLE 40 MG TABLET PO SCH ×2 (06:18→17:48)
[2019-07-18] MEDS: METOCLOPRAMIDE 10 MG/10 ML UDCUP PO SCH ×4 (06:50→20:31)
[2019-07-18] MEDS: GABAPENTIN 600 MG TABLET PO SCH ×2 (08:54→20:31)
[2019-07-18] MEDS: ISOSORBIDE MONONITRATE 30 MG TABLET PO SCH ×2 (08:54→20:31)
[2019-07-18] MEDS: amLODIPine 5 MG TABLET PO SCH (08:54)
[2019-07-18] MEDS: FUROSEMIDE 40 MG/4 ML VIAL IV SCH ×2 (08:54→17:00)
[2019-07-18] MEDS: CEFEPIME 1,000 MG in SODIUM CHLORIDE 0.9% 100 ML IV SCH ×2 (08:54→20:30)
[2019-07-18 11:27] LABS: Acanthocytes Few; Hypochromasia Slight; Microcytosis Slight; Platelet Estimate Increased; Polychromasia Slight; Target Cells Few
[2019-07-18] MEDS: VANCOMYCIN 50 MG/ML 60 ML/BOTTLE PO SCH ×4 (11:35→20:32)
[2019-07-18] MEDS: INSULIN REGULAR 100 UNIT/ML SUBCUT SCH ×3 (13:15→20:31)
[2019-07-18] MEDS: INSULIN ASPART PROTAMINE/ASPART 70/30 100 UNIT/ML SUBCUT SCH (16:50)
[2019-07-18] MEDS ORDERED: traZODone 50 MG TABLET PO PRN (18:53)
[2019-07-18 19:15] LABS: ABG Base Excess -5.6 MMOL/L (-2.5-2.5); ABG HCO3 19.4 MMOL/L (20-26); ABG Oxygen Saturation 73.8 % (95-100); ABG PCO2 40.3 MM HG (35-48); ABG PH 7.312 (7.35-7.45); ABG PO2 44.6 MM HG (80-95); ABG TCO2 18.4 MMOL/L (23-27)
[2019-07-18] MEDS: ENOXAPARIN 30 MG/0.3 ML SYRINGE SUBCUT SCH (20:30)
[2019-07-18] MEDS: MORPHINE 4 MG/1 ML VIAL IV PRN (22:27)
[2019-07-18] MEDS ORDERED: diphenhydrAMINE 50 MG/1 ML VIAL IM ONE (22:43)
[2019-07-18] MEDS ORDERED: diphenhydrAMINE 50 MG/1 ML VIAL ONE (22:45)
[2019-07-19] MEDS: ALBUTEROL/IPRATROPIUM 3 ML NEB RESP TX SCH ×4 (01:48→19:40)
[2019-07-19 04:48] LABS: Basophils % 0.2 % (0.0-0.8); Hematocrit 29.1 VOL% (35.7-47.0); Hemoglobin 9.3 GM/DL (12.0-16.0); Immature Granulocytes % 0.9 %; Immature Granulocytes Absolute 0.17 #; Lymphocytes # 0.9 10*3/uL (1.4-4.0); Lymphocytes % 5.1 % (21.3-54.2); Mean Corpuscular Volume 91.2 FL (87-102); Monocytes % 3.7 % (1.7-12.7); Neutrophils % 90.1 % (38.7-73.9); Platelet Count 475 T/CUMM (130-400); Red Blood Count 3.19 MC/CUMM (3.8-5.5); Red Cell Distribution Width 15.9 % (9.3-17.3); White Blood Count 18.1 T/CUMM (4-12)
[2019-07-19 05:41] LABS: Calcium 7.9 MG/DL (8.5-10.1); Osmolality,Calculated 293.8 MOS/KG (273-304)
[2019-07-19] MEDS: PANTOPRAZOLE 40 MG TABLET PO SCH ×2 (06:00→18:26)
[2019-07-19] MEDS: methylPREDNISolone SOD SUC 40 MG/1 ML VIAL IV SCH ×3 (06:00→22:45)
[2019-07-19] MEDS: oxyCODONE/ACETAMINOPHEN 5-325 MG TABLET PO PRN ×3 (06:01→19:10)
[2019-07-19] MEDS: INSULIN REGULAR 100 UNIT/ML SUBCUT SCH ×4 (08:47→21:30)
[2019-07-19] MEDS: GABAPENTIN 600 MG TABLET PO SCH ×2 (08:48→21:30)
[2019-07-19] MEDS: amLODIPine 5 MG TABLET PO SCH (08:48)
[2019-07-19] MEDS: METOCLOPRAMIDE 10 MG/10 ML UDCUP PO SCH ×4 (08:48→21:30)
[2019-07-19] MEDS: ISOSORBIDE MONONITRATE 30 MG TABLET PO SCH ×2 (08:48→21:30)
[2019-07-19] MEDS: INSULIN ASPART PROTAMINE/ASPART 70/30 100 UNIT/ML SUBCUT SCH ×2 (08:48→16:59)
[2019-07-19] MEDS: FUROSEMIDE 40 MG/4 ML VIAL IV SCH ×2 (08:48→16:54)
[2019-07-19] MEDS: CEFEPIME 1,000 MG in SODIUM CHLORIDE 0.9% 100 ML IV SCH ×2 (08:49→21:30)
[2019-07-19] MEDS: VANCOMYCIN 50 MG/ML 60 ML/BOTTLE PO SCH ×4 (08:56→21:30)
[2019-07-19] MEDS: diphenhydrAMINE 50 MG/1 ML VIAL IV PRN ×2 (15:51→22:43)
[2019-07-19] MEDS: MORPHINE 4 MG/1 ML VIAL IV PRN ×2 (15:51→22:44)
[2019-07-19] MEDS ORDERED: cefTRIAXone 1,000 MG in SYRINGE 1 EACH IV ONE (16:09)
[2019-07-19] MEDS: metOLazone 5 MG TABLET PO SCH (17:05)
[2019-07-19] MEDS: traZODone 50 MG TABLET PO PRN (18:25)
[2019-07-19] MEDS: ENOXAPARIN 30 MG/0.3 ML SYRINGE SUBCUT SCH (21:30)
[2019-07-20] MEDS: ALBUTEROL/IPRATROPIUM 3 ML NEB RESP TX SCH ×4 (00:45→19:00)
[2019-07-20] MEDS: methylPREDNISolone SOD SUC 40 MG/1 ML VIAL IV SCH ×3 (06:03→21:45)
[2019-07-20] MEDS: MORPHINE 4 MG/1 ML VIAL IV PRN ×3 (09:12→21:44)
[2019-07-20] MEDS: CEFEPIME 1,000 MG in SODIUM CHLORIDE 0.9% 100 ML IV SCH ×2 (09:13→22:10)
[2019-07-20] MEDS: FUROSEMIDE 40 MG/4 ML VIAL IV SCH ×2 (09:13→16:08)
[2019-07-20] MEDS: diphenhydrAMINE 50 MG/1 ML VIAL IV PRN ×2 (09:29→21:44)
[2019-07-20 09:59] LABS: Calcium 7.8 MG/DL (8.5-10.1)
[2019-07-20] MEDS: PANTOPRAZOLE 40 MG TABLET PO SCH ×2 (10:05→18:40)
[2019-07-20] MEDS: amLODIPine 5 MG TABLET PO SCH (10:05)
[2019-07-20] MEDS: ISOSORBIDE MONONITRATE 30 MG TABLET PO SCH ×2 (10:05→21:43)
[2019-07-20] MEDS: GABAPENTIN 600 MG TABLET PO SCH ×2 (10:05→21:43)
[2019-07-20] MEDS: metOLazone 5 MG TABLET PO SCH (10:05)
[2019-07-20] MEDS: INSULIN REGULAR 100 UNIT/ML SUBCUT SCH ×4 (10:51→21:44)
[2019-07-20] MEDS: METOCLOPRAMIDE 10 MG/10 ML UDCUP PO SCH ×4 (10:52→21:42)
[2019-07-20] MEDS: INSULIN ASPART PROTAMINE/ASPART 70/30 100 UNIT/ML SUBCUT SCH ×2 (10:52→16:08)
[2019-07-20] MEDS: VANCOMYCIN 50 MG/ML 60 ML/BOTTLE PO SCH ×4 (10:53→22:27)
[2019-07-20] MEDS: oxyCODONE/ACETAMINOPHEN 5-325 MG TABLET PO PRN ×2 (12:41→23:10)
[2019-07-20] MEDS: ENOXAPARIN 30 MG/0.3 ML SYRINGE SUBCUT SCH (21:43)
[2019-07-20] MEDS: traZODone 50 MG TABLET PO PRN (22:12)
[2019-07-21] MEDS: ALBUTEROL/IPRATROPIUM 3 ML NEB RESP TX SCH ×5 (00:39→19:53)
[2019-07-21 04:46] LABS: Basophils % 0.1 % (0.0-0.8); Hemoglobin 9.4 GM/DL (12.0-16.0); Immature Granulocytes % 1.4 %; Immature Granulocytes Absolute 0.24 #; Lymphocytes # 1.2 10*3/uL (1.4-4.0); Lymphocytes % 6.8 % (21.3-54.2); Mean Corpuscular HGB Conc 31.3 GM/DL (32-36); Mean Corpuscular Volume 90.6 FL (87-102); Mean Platelet Volume 10.6 FL (9.6-12.0); Monocytes % 3.8 % (1.7-12.7); NRBC # 0.52 10*3/uL; Neutrophils % 87.9 % (38.7-73.9); Platelet Count 432 T/CUMM (130-400); Red Blood Count 3.31 MC/CUMM (3.8-5.5); Red Cell Distribution Width 15.9 % (9.3-17.3); White Blood Count 17.7 T/CUMM (4-12)
[2019-07-21] MEDS: MORPHINE 4 MG/1 ML VIAL IV PRN ×2 (04:53→21:39)
[2019-07-21 05:13] LABS: Alanine Aminotransferase 21 U/L (13-56); Alkaline Phosphatase 97 U/L (45-117); Aspartate Amino Transferase 17 U/L (0-37); Bilirubin,Total < 0.39 MG/DL (0.2-1.0); Blood Urea Nitrogen 51 MG/DL (7-18); Calcium 7.4 MG/DL (8.5-10.1); Glucose 308 MG/DL (74-106); Osmolality,Calculated 295.1 MOS/KG (273-304); Total Protein 5.4 G/DL (6.4-8.3)
[2019-07-21] MEDS: methylPREDNISolone SOD SUC 40 MG/1 ML VIAL IV SCH ×3 (06:48→23:11)
[2019-07-21] MEDS: PANTOPRAZOLE 40 MG TABLET PO SCH ×2 (06:48→21:38)
[2019-07-21] MEDS: INSULIN REGULAR 100 UNIT/ML SUBCUT SCH ×4 (09:24→21:37)
[2019-07-21] MEDS: INSULIN ASPART PROTAMINE/ASPART 70/30 100 UNIT/ML SUBCUT SCH ×2 (09:25→17:52)
[2019-07-21] MEDS: oxyCODONE/ACETAMINOPHEN 5-325 MG TABLET PO PRN ×2 (09:42→17:53)
[2019-07-21] MEDS: GABAPENTIN 600 MG TABLET PO SCH ×2 (09:45→21:38)
[2019-07-21] MEDS: FUROSEMIDE 40 MG/4 ML VIAL IV SCH ×2 (09:45→17:51)
[2019-07-21] MEDS: METOCLOPRAMIDE 10 MG/10 ML UDCUP PO SCH ×4 (09:45→21:38)
[2019-07-21] MEDS: ISOSORBIDE MONONITRATE 30 MG TABLET PO SCH ×2 (09:46→21:38)
[2019-07-21] MEDS: metOLazone 5 MG TABLET PO SCH (09:46)
[2019-07-21] MEDS: CEFEPIME 1,000 MG in SODIUM CHLORIDE 0.9% 100 ML IV SCH ×2 (10:00→21:41)
[2019-07-21] MEDS: amLODIPine 5 MG TABLET PO SCH (10:00)
[2019-07-21] MEDS: traZODone 50 MG TABLET PO PRN ×2 (10:00→21:36)
[2019-07-21] MEDS: VANCOMYCIN 50 MG/ML 60 ML/BOTTLE PO SCH ×4 (11:15→21:54)
[2019-07-21] MEDS ORDERED: LIDOCAINE 2% TOP JELLY 20 ML VIAL INTRAURETH ONE (11:18)
[2019-07-21] MEDS ORDERED: ONDANSETRON 4 MG/2 ML VIAL IV PRN (12:48)
[2019-07-21] MEDS ORDERED: ONDANSETRON 4 MG/2 ML VIAL ONE (12:48)
[2019-07-21] MEDS ORDERED: HYDROmorphone 2 MG/1 ML VIAL ONE (12:48)
[2019-07-21] MEDS: HYDROmorphone 2 MG/1 ML VIAL IV PRN ×2 (12:50→12:55)
[2019-07-21] MEDS: ENOXAPARIN 30 MG/0.3 ML SYRINGE SUBCUT SCH (21:37)
[2019-07-21] MEDS: diphenhydrAMINE 50 MG/1 ML VIAL IV PRN (21:37)
[2019-07-22] MEDS: ALBUTEROL/IPRATROPIUM 3 ML NEB RESP TX SCH ×4 (00:04→19:20)
[2019-07-22] MEDS: oxyCODONE/ACETAMINOPHEN 5-325 MG TABLET PO PRN ×4 (03:42→22:11)
[2019-07-22] MEDS: PANTOPRAZOLE 40 MG TABLET PO SCH ×2 (05:46→20:00)
[2019-07-22] MEDS: methylPREDNISolone SOD SUC 40 MG/1 ML VIAL IV SCH ×2 (05:46→14:48)
[2019-07-22] MEDS: MORPHINE 4 MG/1 ML VIAL IV PRN ×5 (05:52→23:56)
[2019-07-22 06:15] LABS: Basophils % 0.2 % (0.0-0.8); Hematocrit 30.8 VOL% (35.7-47.0); Hemoglobin 9.8 GM/DL (12.0-16.0); Immature Granulocytes % 1.6 %; Immature Granulocytes Absolute 0.21 #; Lymphocytes # 0.5 10*3/uL (1.4-4.0); Lymphocytes % 3.8 % (21.3-54.2); Mean Corpuscular HGB Conc 31.8 GM/DL (32-36); Mean Corpuscular Volume 91.9 FL (87-102); Mean Platelet Volume 10.3 FL (9.6-12.0); Monocytes % 1.5 % (1.7-12.7); NRBC # 0.54 10*3/uL; Neutrophils % 92.9 % (38.7-73.9); Platelet Count 445 T/CUMM (130-400); Red Blood Count 3.35 MC/CUMM (3.8-5.5); Red Cell Distribution Width 15.8 % (9.3-17.3); White Blood Count 12.9 T/CUMM (4-12)
[2019-07-22 06:39] LABS: Calcium 7.5 MG/DL (8.5-10.1)
[2019-07-22 06:40] LABS: Lymphocytes 3 % (20-55); Nucleated Red Blood Cells 6 (0-5); Platelet Estimate Increased; Segmented Neutrophils 96 % (50-85); Total Cells Counted 100
[2019-07-22] MEDS: INSULIN ASPART PROTAMINE/ASPART 70/30 100 UNIT/ML SUBCUT SCH ×2 (07:57→16:49)
[2019-07-22] MEDS: FUROSEMIDE 40 MG/4 ML VIAL IV SCH (08:48)
[2019-07-22] MEDS: INSULIN REGULAR 100 UNIT/ML SUBCUT SCH ×4 (08:48→20:02)
[2019-07-22] MEDS: GABAPENTIN 600 MG TABLET PO SCH ×2 (08:49→20:01)
[2019-07-22] MEDS: metOLazone 5 MG TABLET PO SCH (08:49)
[2019-07-22] MEDS: METOCLOPRAMIDE 10 MG/10 ML UDCUP PO SCH ×4 (08:49→22:02)
[2019-07-22] MEDS: amLODIPine 5 MG TABLET PO SCH (08:49)
[2019-07-22] MEDS: ISOSORBIDE MONONITRATE 30 MG TABLET PO SCH ×2 (08:49→20:01)
[2019-07-22] MEDS: VANCOMYCIN 50 MG/ML 60 ML/BOTTLE PO SCH ×4 (08:56→22:02)
[2019-07-22] MEDS: CEFEPIME 1,000 MG in SODIUM CHLORIDE 0.9% 100 ML IV SCH (08:59)
[2019-07-22] MEDS: traZODone 50 MG TABLET PO PRN ×2 (12:35→20:00)
[2019-07-22] MEDS: FUROSEMIDE 40 MG TABLET PO SCH (16:49)
[2019-07-22] MEDS: diphenhydrAMINE 50 MG/1 ML VIAL IV PRN (20:01)
[2019-07-22] MEDS: ENOXAPARIN 30 MG/0.3 ML SYRINGE SUBCUT SCH (20:01)
[2019-07-23] MEDS: ALBUTEROL/IPRATROPIUM 3 ML NEB RESP TX SCH ×3 (00:15→13:00)
[2019-07-23] MEDS: MORPHINE 4 MG/1 ML VIAL IV PRN ×2 (05:03→10:45)
[2019-07-23 06:10] LABS: Basophils % 0.2 % (0.0-0.8); Hematocrit 31.2 VOL% (35.7-47.0); Hemoglobin 9.8 GM/DL (12.0-16.0); Immature Granulocytes % 2.2 %; Immature Granulocytes Absolute 0.37 #; Lymphocytes # 1.3 10*3/uL (1.4-4.0); Lymphocytes % 7.6 % (21.3-54.2); Mean Corpuscular HGB Conc 31.4 GM/DL (32-36); Mean Corpuscular Volume 91.8 FL (87-102); Mean Platelet Volume 10.1 FL (9.6-12.0); Monocytes % 4.9 % (1.7-12.7); NRBC # 0.47 10*3/uL; Neutrophils % 85.1 % (38.7-73.9); Platelet Count 425 T/CUMM (130-400); Red Cell Distribution Width 15.5 % (9.3-17.3); White Blood Count 16.8 T/CUMM (4-12)
[2019-07-23 06:40] LABS: Calcium 7.4 MG/DL (8.5-10.1); Osmolality,Calculated 293.1 MOS/KG (273-304)
[2019-07-23] MEDS: PANTOPRAZOLE 40 MG TABLET PO SCH (06:40)
[2019-07-23] MEDS: GABAPENTIN 600 MG TABLET PO SCH (08:32)
[2019-07-23] MEDS: ISOSORBIDE MONONITRATE 30 MG TABLET PO SCH (08:33)
[2019-07-23] MEDS: FUROSEMIDE 40 MG TABLET PO SCH (08:33)
[2019-07-23] MEDS: oxyCODONE/ACETAMINOPHEN 5-325 MG TABLET PO PRN ×2 (08:33→14:58)
[2019-07-23] MEDS: metOLazone 5 MG TABLET PO SCH (08:33)
[2019-07-23] MEDS: INSULIN ASPART PROTAMINE/ASPART 70/30 100 UNIT/ML SUBCUT SCH (08:34)
[2019-07-23] MEDS: INSULIN REGULAR 100 UNIT/ML SUBCUT SCH ×2 (08:34→12:08)
[2019-07-23] MEDS: ONDANSETRON 4 MG/2 ML VIAL IV PRN ×2 (08:35→12:45)
[2019-07-23] MEDS: VANCOMYCIN 50 MG/ML 60 ML/BOTTLE PO SCH ×2 (08:35→12:08)
[2019-07-23] MEDS: METOCLOPRAMIDE 10 MG/10 ML UDCUP PO SCH ×2 (08:35→12:05)
[2019-07-23] MEDS: methylPREDNISolone SOD SUC 40 MG/1 ML VIAL IV SCH (08:41)
[2019-07-23 12:21] VITALS: BP 166/83
== END 2019-07-23 16:27 | disposition home or self-care (01) | DRG 291 ==
LOC: EDBD → EDUNIT# → N.ED 16:39 → N.EDINP 19:50 → SUATTDRO 19:50 → N.CC 22:49 → N.5E 07-20 14:21
PROVIDERS: ADMIT Family Medicine; ATTEND Internal Medicine Geriatric Medicine

== ENCOUNTER 2019-08-25 08:46 | Inpatient (IN) ==
[2019-08-25 09:22] LABS: ABG Base Excess -9.6 MMOL/L (-2.5-2.5); ABG HCO3 16.7 MMOL/L (20-26); ABG Oxygen Saturation 92.1 % (95-100); ABG PCO2 32.7 MM HG (35-48); ABG PH 7.297 (7.35-7.45); ABG PO2 69.5 MM HG (80-95); ABG TCO2 14.8 MMOL/L (23-27)
[2019-08-25 09:23] LABS: Basophils # 0.2 10*3/uL (0.0-0.2); Basophils % 0.5 % (0.0-0.8); Hematocrit 30.3 VOL% (35.7-47.0); Hemoglobin 9.6 GM/DL (12.0-16.0); Immature Granulocytes Absolute 0.67 #; Lymphocytes # 2.5 10*3/uL (1.4-4.0); Lymphocytes % 7.5 % (21.3-54.2); Mean Corpuscular HGB Conc 31.7 GM/DL (32-36); Mean Corpuscular Volume 89.1 FL (87-102); Mean Platelet Volume 9.7 FL (9.6-12.0); Monocytes % 5.2 % (1.7-12.7); NRBC # 0.24 10*3/uL; Neutrophils % 84.8 % (38.7-73.9); Platelet Count 624 T/CUMM (130-400); Red Cell Distribution Width 15.5 % (9.3-17.3); White Blood Count 33.8 T/CUMM (4-12)
[2019-08-25] MEDS ORDERED: SODIUM CHLORIDE 0.9% 1,000 ML IV STA ×2 (09:28)
[2019-08-25] MEDS ORDERED: PIPERACILLIN/TAZOBACTAM 3,375 MG in SODIUM CHLORIDE 0.9% 100 ML IV STA (09:29)
[2019-08-25 09:48] LABS: Band Neutrophils 1 % (0-10); Hypochromasia 1+; Lymphocytes 8 % (20-55); Ovalocytes Slight; Platelet Estimate Increased; Segmented Neutrophils 87 % (50-85); Total Cells Counted 100
[2019-08-25 09:55] LABS: Albumin 1.7 G/DL (3.4-5.0); Bilirubin,Total 0.4 MG/DL (0.2-1.0); Calcium 7.3 MG/DL (8.5-10.1); Total Protein 5.4 G/DL (6.4-8.3)
[2019-08-25 10:11] LABS: Barbiturates Screen,Urine Negative (Negative); Benzodiazepines Screen,Urine Negative (Negative); Cannabinoid Screen,Urine Negative (Negative); Opiate Screen,Urine Negative (Negative); Phencyclidine Screen,Urine Negative (Negative)
[2019-08-25 10:12] LABS: Apearance,Urine CLOUDY (Clear); Bacteria,Urine Moderate /HPF (Few); Bilirubin,Urine Negative (Negative); Blood, Urine Small mg/dL (Negative); Glucose,Urine (UA) >=500 mg/dL (Negative); Ketones,Urine 5 mg/dL (Negative); Mucus,Urine Few /LPF (Occasional); Nitrite,Urine Negative (Negative); Protein,Urine >=500 MG/DL; RBC,Urine 25 /HPF (0-4); Urine Color Yellow (Yellow); Urine Specific Gravity 1.012 (1.001-1.035); Urine Urobilinogen < 2.0 EU/DL (0.2-1.0); WBC,Urine 377 /HPF (0-6)
[2019-08-25 11:09] LABS: INR 1.2; Partial Thromboplastin Time 29.9 SECS (20.8-36.0)
[2019-08-25] MEDS ORDERED: NICOTINE 21 MG/24 HR PATCH TRANSDERM PRN (11:41)
[2019-08-25] MEDS ORDERED: GLUCAGON 1 MG VIAL IM PRN (11:41)
[2019-08-25] MEDS ORDERED: DEXTROSE 50% 25 GM/50 ML VIAL IV PRN (11:41)
[2019-08-25 12:18] LABS: Hepatitis B Core IgM Quant 0.16 Index; Hepatitis B Surface Ag Quant < 0.10 Index; Hepatitis B Surface Ag Result Negative (Negative); Hepatitis C Virus Ab Quant 0.05 Index; Hepatitis C Virus Ab Result Negative (Negative)
[2019-08-25] MEDS: ENOXAPARIN 30 MG/0.3 ML SYRINGE SUBCUT SCH (12:49)
[2019-08-25] MEDS: SODIUM CHLORIDE 0.9% 1,000 ML IV SCH ×3 (12:49→23:15)
[2019-08-25] MEDS: PHENOL 1.4% THROAT SPRAY 177 ML BOTTLE PO PRN ×2 (16:57→21:32)
[2019-08-25] MEDS: INSULIN LISPRO 100 UNIT/ML SUBCUT SCH ×2 (17:02→20:35)
[2019-08-25] MEDS: MORPHINE 4 MG/1 ML VIAL IV PRN ×2 (18:20→23:14)
[2019-08-25 19:26] LABS: % Iron Saturation 6.5 % (18-50)
[2019-08-25] MEDS: PANTOPRAZOLE 40 MG TABLET PO SCH (20:37)
[2019-08-25] MEDS: PIPERACILLIN/TAZOBACTAM 3,375 MG in SODIUM CHLORIDE 0.9% 100 ML IV SCH (21:33)
[2019-08-25] MEDS: METOCLOPRAMIDE 10 MG/2 ML VIAL IV SCH (23:13)
[2019-08-25] MEDS: ONDANSETRON 4 MG/2 ML VIAL IV PRN (23:13)
[2019-08-26] MEDS: MORPHINE 4 MG/1 ML VIAL IV PRN ×3 (05:37→21:30)
[2019-08-26] MEDS: ONDANSETRON 4 MG/2 ML VIAL IV PRN (05:38)
[2019-08-26] MEDS: METOCLOPRAMIDE 10 MG/2 ML VIAL IV SCH ×3 (05:38→18:26)
[2019-08-26 06:13] LABS: Basophils # 0.1 10*3/uL (0.0-0.2); Basophils % 0.4 % (0.0-0.8); Eosinophils % 0.1 % (0.00-10.9); Hematocrit 26.7 VOL% (35.7-47.0); Hemoglobin 8.4 GM/DL (12.0-16.0); Immature Granulocytes % 1.9 %; Immature Granulocytes Absolute 0.57 #; Lymphocytes # 4.1 10*3/uL (1.4-4.0); Lymphocytes % 14.1 % (21.3-54.2); Mean Corpuscular HGB Conc 31.5 GM/DL (32-36); Mean Corpuscular Volume 89.6 FL (87-102); Mean Platelet Volume 9.8 FL (9.6-12.0); Monocytes % 5.9 % (1.7-12.7); NRBC # 0.31 10*3/uL; Neutrophils % 77.6 % (38.7-73.9); Platelet Count 548 T/CUMM (130-400); Red Blood Count 2.98 MC/CUMM (3.8-5.5); Red Cell Distribution Width 15.8 % (9.3-17.3); White Blood Count 29.3 T/CUMM (4-12)
[2019-08-26 06:36] LABS: Albumin 1.4 G/DL (3.4-5.0); Bilirubin,Direct 0.11 MG/DL (0.0-0.20); Bilirubin,Indirect 0.4 MG/DL (0.0-1.0); Bilirubin,Total 0.5 MG/DL (0.2-1.0); Total Protein 4.9 G/DL (6.4-8.3)
[2019-08-26 06:38] LABS: Band Neutrophils 1 % (0-10); Eosinophils 1 % (0-10); Hypochromasia 1+; Lymphocytes 21 % (20-55); Ovalocytes Slight; Platelet Estimate Adequate; Segmented Neutrophils 74 % (50-85); Total Cells Counted 100
[2019-08-26 06:42] LABS: Albumin 1.4 G/DL (3.4-5.0); Bilirubin,Total 0.4 MG/DL (0.2-1.0); Calcium 7.1 MG/DL (8.5-10.1); Osmolality,Calculated 286.7 MOS/KG (273-304); Risk Ratio 4.05; Thyroid Stimulating Hormone 4.45 uIU/ml (0.358-3.74); Total Protein 4.9 G/DL (6.4-8.3); VLDL CHOLESTEROL 43.6 MG/DL
[2019-08-26] MEDS ORDERED: SODIUM CHLORIDE 0.9% 1,000 ML IV PRN (06:56)
[2019-08-26] MEDS: INSULIN LISPRO 100 UNIT/ML SUBCUT SCH ×4 (07:52→21:29)
[2019-08-26] MEDS: PANTOPRAZOLE 40 MG TABLET PO SCH ×2 (08:21→21:30)
[2019-08-26] MEDS ORDERED: PANTOPRAZOLE 40 MG TABLET PO SCH (09:00)
[2019-08-26] MEDS: SODIUM CHLORIDE 0.9% 1,000 ML IV SCH (11:49)
[2019-08-26] MEDS: ENOXAPARIN 30 MG/0.3 ML SYRINGE SUBCUT SCH (11:50)
[2019-08-26] MEDS: PIPERACILLIN/TAZOBACTAM 3,375 MG in SODIUM CHLORIDE 0.9% 100 ML IV SCH ×2 (11:50→21:29)
[2019-08-26] MEDS: PHENOL 1.4% THROAT SPRAY 177 ML BOTTLE PO PRN (13:20)
[2019-08-26] MEDS ORDERED: GABAPENTIN 600 MG TABLET PO ONE (21:24)
[2019-08-27] MEDS: METOCLOPRAMIDE 10 MG/2 ML VIAL IV SCH ×4 (01:25→17:24)
[2019-08-27] MEDS: SODIUM CHLORIDE 0.9% 1,000 ML IV SCH ×2 (04:05→17:32)
[2019-08-27] MEDS: MORPHINE 4 MG/1 ML VIAL IV PRN ×3 (04:18→15:33)
[2019-08-27 04:55] LABS: Basophils # 0.1 10*3/uL (0.0-0.2); Basophils % 0.3 % (0.0-0.8); Eosinophils # 0.1 10*3/uL (0.0-0.87); Eosinophils % 0.6 % (0.00-10.9); Hemoglobin 8.8 GM/DL (12.0-16.0); Immature Granulocytes % 1.3 %; Immature Granulocytes Absolute 0.22 #; Lymphocytes # 3.7 10*3/uL (1.4-4.0); Lymphocytes % 21.6 % (21.3-54.2); Mean Corpuscular HGB Conc 31.4 GM/DL (32-36); Mean Corpuscular Volume 89.5 FL (87-102); Mean Platelet Volume 9.7 FL (9.6-12.0); Monocytes % 6.3 % (1.7-12.7); NRBC # 0.18 10*3/uL; Neutrophils % 69.9 % (38.7-73.9); Platelet Count 545 T/CUMM (130-400); Red Blood Count 3.13 MC/CUMM (3.8-5.5); Red Cell Distribution Width 15.9 % (9.3-17.3); White Blood Count 17.2 T/CUMM (4-12)
[2019-08-27 05:32] LABS: Albumin 1.3 G/DL (3.4-5.0); Bilirubin,Direct 0.12 MG/DL (0.0-0.20); Bilirubin,Indirect 0.5 MG/DL (0.0-1.0); Bilirubin,Total 0.6 MG/DL (0.2-1.0); Total Protein 4.8 G/DL (6.4-8.3)
[2019-08-27 05:34] LABS: Albumin 1.3 G/DL (3.4-5.0); Bilirubin,Total 0.6 MG/DL (0.2-1.0); Calcium 7.2 MG/DL (8.5-10.1); Osmolality,Calculated 288.4 MOS/KG (273-304); Total Protein 4.8 G/DL (6.4-8.3)
[2019-08-27] MEDS: INSULIN LISPRO 100 UNIT/ML SUBCUT SCH ×4 (08:00→21:05)
[2019-08-27] MEDS: PANTOPRAZOLE 40 MG TABLET PO SCH ×2 (09:30→21:05)
[2019-08-27] MEDS: PIPERACILLIN/TAZOBACTAM 3,375 MG in SODIUM CHLORIDE 0.9% 100 ML IV SCH (09:36)
[2019-08-27] MEDS: ENOXAPARIN 30 MG/0.3 ML SYRINGE SUBCUT SCH (14:05)
[2019-08-27] MEDS: ONDANSETRON 4 MG/2 ML VIAL IV PRN (14:05)
[2019-08-27] MEDS ORDERED: CIPROFLOXACIN 250 MG TABLET PO SCH (21:00)
[2019-08-27] MEDS: traMADol 50 MG TABLET PO PRN (21:04)
[2019-08-27] MEDS: DICLOFENAC 1% GEL 100 GM TUBE TOP SCH (21:05)
[2019-08-27] MEDS ORDERED: GABAPENTIN 600 MG TABLET PO ONE (22:00)
[2019-08-28] MEDS: METOCLOPRAMIDE 10 MG/2 ML VIAL IV SCH ×3 (01:43→13:30)
[2019-08-28] MEDS: traMADol 50 MG TABLET PO PRN ×2 (02:39→06:08)
[2019-08-28 06:05] LABS: Basophils # 0.1 10*3/uL (0.0-0.2); Basophils % 0.6 % (0.0-0.8); Eosinophils # 0.2 10*3/uL (0.0-0.87); Eosinophils % 1.1 % (0.00-10.9); Hematocrit 30.3 VOL% (35.7-47.0); Hemoglobin 9.5 GM/DL (12.0-16.0); Immature Granulocytes Absolute 0.15 #; Lymphocytes # 4.2 10*3/uL (1.4-4.0); Lymphocytes % 28.9 % (21.3-54.2); Mean Corpuscular HGB Conc 31.4 GM/DL (32-36); Mean Corpuscular Volume 88.3 FL (87-102); Mean Platelet Volume 10.9 FL (9.6-12.0); Monocytes % 5.1 % (1.7-12.7); NRBC # 0.08 10*3/uL; Neutrophils % 63.3 % (38.7-73.9); Platelet Count 468 T/CUMM (130-400); Red Blood Count 3.43 MC/CUMM (3.8-5.5); Red Cell Distribution Width 15.9 % (9.3-17.3); White Blood Count 14.6 T/CUMM (4-12)
[2019-08-28 06:29] LABS: Alanine Aminotransferase 210 U/L (13-56); Albumin 1.4 G/DL (3.4-5.0); Alkaline Phosphatase 138 U/L (45-117); Aspartate Amino Transferase 74 U/L (0-37); Bilirubin,Direct < 0.050 MG/DL (0.0-0.20); Bilirubin,Indirect 0.5 MG/DL (0.0-1.0); Total Protein 5.2 G/DL (6.4-8.3)
[2019-08-28 06:49] LABS: Calcium 7.4 MG/DL (8.5-10.1); Osmolality,Calculated 290.1 MOS/KG (273-304)
[2019-08-28] MEDS: INSULIN LISPRO 100 UNIT/ML SUBCUT SCH ×2 (07:30→12:00)
[2019-08-28] MEDS ORDERED: ASPIRIN CHEW 81 MG TABLET PO ONE (08:30)
[2019-08-28] MEDS ORDERED: MORPHINE 4 MG/1 ML VIAL IV PRN (08:30)
[2019-08-28] MEDS ORDERED: NITROGLYCERIN SL 0.4 MG TABLET SL PRN (08:30)
[2019-08-28] MEDS ORDERED: NITROGLYCERIN SL 0.4 MG TABLET SL ONE (08:31)
[2019-08-28] MEDS ORDERED: ALUM/MAG/SIMETH/LIDO VISC 1:1 30 ML BOTTLE PO ONE (08:35)
[2019-08-28 08:53] LABS: Basophils # 0.1 10*3/uL (0.0-0.2); Basophils % 0.6 % (0.0-0.8); Eosinophils # 0.2 10*3/uL (0.0-0.87); Hemoglobin 10.9 GM/DL (12.0-16.0); Immature Granulocytes % 0.9 %; Immature Granulocytes Absolute 0.18 #; Lymphocytes # 5.5 10*3/uL (1.4-4.0); Lymphocytes % 27.9 % (21.3-54.2); Mean Corpuscular HGB Conc 32.1 GM/DL (32-36); Mean Corpuscular Volume 87.9 FL (87-102); Mean Platelet Volume 9.6 FL (9.6-12.0); Monocytes % 5.7 % (1.7-12.7); NRBC # 0.07 10*3/uL; Neutrophils % 63.9 % (38.7-73.9); Platelet Count 634 T/CUMM (130-400); Red Blood Count 3.87 MC/CUMM (3.8-5.5); White Blood Count 19.7 T/CUMM (4-12)
[2019-08-28] MEDS ORDERED: LIDOCAINE 5% PATCH TRANSDERM SCH (09:00)
[2019-08-28 09:38] LABS: Alanine Aminotransferase 233 U/L (13-56); Albumin 1.6 G/DL (3.4-5.0); Alkaline Phosphatase 158 U/L (45-117); Aspartate Amino Transferase 86 U/L (0-37); Bilirubin,Total < 0.39 MG/DL (0.2-1.0); Blood Urea Nitrogen 31 MG/DL (7-18); Calcium 7.9 MG/DL (8.5-10.1); Estimated Glom Filtration Rate 24 ML/MIN; Glucose 115 MG/DL (74-106); Osmolality,Calculated 288.3 MOS/KG (273-304); Total Protein 5.9 G/DL (6.4-8.3)
[2019-08-28] MEDS ORDERED: MAGNESIUM SULF IV ONE (10:00)
[2019-08-28] MEDS ORDERED: SODIUM CHLORIDE 0.9% IV ONE (10:00)
[2019-08-28] MEDS: PANTOPRAZOLE 40 MG TABLET PO SCH (10:08)
[2019-08-28] MEDS: DICLOFENAC 1% GEL 100 GM TUBE TOP SCH (10:09)
[2019-08-28 12:34] VITALS: BP 177/95
[2019-08-28] MEDS: ENOXAPARIN 30 MG/0.3 ML SYRINGE SUBCUT SCH (13:29)
== END 2019-08-28 15:50 | disposition home health service (06) | DRG 871 ==
LOC: EDUNIT# → N.ED 08:46 → SUATTDRO 10:12 → N.EDINP 10:12 → N.5E 11:31
PROVIDERS: ADMIT Internal Medicine; ATTEND Internal Medicine

== ENCOUNTER 2019-08-31 12:47 | Inpatient (IN) ==
[2019-08-31] MEDS ORDERED: PANTOPRAZOLE 40 MG VIAL IV STA (13:27)
[2019-08-31] MEDS ORDERED: SODIUM CHLORIDE 0.9% 500 ML IV STA (13:27)
[2019-08-31 14:38] LABS: Basophils # 0.1 10*3/uL (0.0-0.2); Basophils % 0.6 % (0.0-0.8); Eosinophils % 0.1 % (0.00-10.9); Hematocrit 33.8 VOL% (35.7-47.0); Hemoglobin 10.7 GM/DL (12.0-16.0); Immature Granulocytes % 2.5 %; Immature Granulocytes Absolute 0.45 #; Lymphocytes # 3.2 10*3/uL (1.4-4.0); Lymphocytes % 17.5 % (21.3-54.2); Mean Corpuscular HGB Conc 31.7 GM/DL (32-36); Mean Corpuscular Volume 89.4 FL (87-102); Mean Platelet Volume 9.8 FL (9.6-12.0); Monocytes % 2.4 % (1.7-12.7); NRBC # 0.03 10*3/uL; Neutrophils % 76.9 % (38.7-73.9); Platelet Count 456 T/CUMM (130-400); Red Blood Count 3.78 MC/CUMM (3.8-5.5); Red Cell Distribution Width 15.9 % (9.3-17.3)
[2019-08-31 14:46] LABS: PT Patient Result 10.9 SECS (9.6-12.2)
[2019-08-31] MEDS ORDERED: ALUM/MAG/SIMETH/LIDO VISC 1:1 30 ML BOTTLE PO STA (14:48)
[2019-08-31 14:52] LABS: Alanine Aminotransferase 89 U/L (13-56); Albumin 1.5 G/DL (3.4-5.0); Alkaline Phosphatase 125 U/L (45-117); Aspartate Amino Transferase 18 U/L (0-37); Bilirubin,Total < 0.39 MG/DL (0.2-1.0); Blood Urea Nitrogen 30 MG/DL (7-18); Calcium 7.8 MG/DL (8.5-10.1); Estimated Glom Filtration Rate 29 ML/MIN; Glucose 169 MG/DL (74-106); Total Protein 5.3 G/DL (6.4-8.3)
[2019-08-31] MEDS ORDERED: ONDANSETRON 4 MG/2 ML VIAL IV PRN (15:14)
[2019-08-31] MEDS ORDERED: GLUCAGON 1 MG VIAL IM PRN (15:17)
[2019-08-31] MEDS ORDERED: DEXTROSE 50% 25 GM/50 ML VIAL IV PRN (15:17)
[2019-08-31] MEDS ORDERED: FUROSEMIDE 40 MG/4 ML VIAL IV STA (15:26)
[2019-08-31] MEDS ORDERED: cefTRIAXone 1,000 MG in SODIUM CHLORIDE 0.9% 100 ML IV SCH (15:30)
[2019-08-31 15:44] LABS: Thyroid Stimulating Hormone 2.49 uIU/ml (0.358-3.74)
[2019-08-31 16:02] LABS: Giant Platelets Moderate; Macrocytosis 1+; Platelet Estimate Increased; Polychromasia 1+; Target Cells Few
[2019-08-31] MEDS ORDERED: MORPHINE 4 MG/1 ML VIAL IV ONE (16:55)
[2019-08-31] MEDS ORDERED: ENOXAPARIN 100 MG/ML SYRINGE SUBCUT SCH (17:00)
[2019-08-31] MEDS: PIPERACILLIN/TAZOBACTAM 3,375 MG in SODIUM CHLORIDE 0.9% 100 ML IV SCH (17:32)
[2019-08-31] MEDS: INSULIN REGULAR 100 UNIT/ML SUBCUT SCH ×2 (17:33→21:06)
[2019-08-31] MEDS: METOCLOPRAMIDE 10 MG/10 ML UDCUP PO SCH ×2 (17:33→21:05)
[2019-08-31] MEDS ORDERED: MAGNESIUM SULF RIDER 4 GM in PREMIX 1 EACH IV ONE (18:00)
[2019-08-31 19:31] LABS: Lymphocytes,Pleural Fluid 65 %; Neutrophils,Pleural Fluid 35 %; RBC,Pleural Fluid 90 T/CUMM
[2019-08-31] MEDS: ALBUTEROL/IPRATROPIUM 3 ML NEB RESP TX SCH (19:49)
[2019-08-31] MEDS ORDERED: LEVOFLOXACIN INJ 750 MG in PREMIX 1 EACH IV SCH (21:00)
[2019-08-31] MEDS ORDERED: ENOXAPARIN 30 MG/0.3 ML SYRINGE SUBCUT SCH (21:00)
[2019-08-31] MEDS: MIRTAZAPINE 15 MG TABLET PO SCH (21:06)
[2019-08-31] MEDS: FUROSEMIDE 40 MG TABLET PO SCH (21:06)
[2019-08-31] MEDS: ISOSORBIDE MONONITRATE 30 MG TABLET PO SCH (21:06)
[2019-08-31] MEDS: GABAPENTIN 400 MG CAPSULE PO SCH (21:06)
[2019-09-01] MEDS: ALBUMIN 25% 25 GM in PREMIX 1 EACH IV SCH ×6 (00:28→18:06)
[2019-09-01] MEDS: PIPERACILLIN/TAZOBACTAM 3,375 MG in SODIUM CHLORIDE 0.9% 100 ML IV SCH ×3 (01:26→18:07)
[2019-09-01 05:12] LABS: Basophils # 0.1 10*3/uL (0.0-0.2); Basophils % 0.6 % (0.0-0.8); Eosinophils # 0.1 10*3/uL (0.0-0.87); Eosinophils % 0.5 % (0.00-10.9); Hematocrit 25.8 VOL% (35.7-47.0); Immature Granulocytes % 1.5 %; Immature Granulocytes Absolute 0.21 #; Lymphocytes # 4.6 10*3/uL (1.4-4.0); Lymphocytes % 32.3 % (21.3-54.2); Mean Corpuscular Volume 89.3 FL (87-102); Mean Platelet Volume 9.7 FL (9.6-12.0); Monocytes % 5.1 % (1.7-12.7); Platelet Count 475 T/CUMM (130-400); Red Blood Count 2.89 MC/CUMM (3.8-5.5); Red Cell Distribution Width 15.9 % (9.3-17.3); White Blood Count 14.1 T/CUMM (4-12)
[2019-09-01 05:41] LABS: Alanine Aminotransferase 56 U/L (13-56); Albumin 1.5 G/DL (3.4-5.0); Alkaline Phosphatase 89 U/L (45-117); Aspartate Amino Transferase 10 U/L (0-37); Bilirubin,Total < 0.39 MG/DL (0.2-1.0); Blood Urea Nitrogen 31 MG/DL (7-18); Calcium 7.1 MG/DL (8.5-10.1); Estimated Glom Filtration Rate 29 ML/MIN; Glucose 140 MG/DL (74-106); HDL Cholesterol 38 MG/DL (40-60); Total Protein 4.4 G/DL (6.4-8.3); Triglycerides 165 MG/DL (2-150)
[2019-09-01] MEDS: ALBUTEROL/IPRATROPIUM 3 ML NEB RESP TX SCH ×4 (07:55→19:55)
[2019-09-01] MEDS: INSULIN REGULAR 100 UNIT/ML SUBCUT SCH ×4 (08:57→20:34)
[2019-09-01] MEDS: GABAPENTIN 400 MG CAPSULE PO SCH ×3 (08:58→20:32)
[2019-09-01] MEDS: ISOSORBIDE MONONITRATE 30 MG TABLET PO SCH ×2 (08:58→20:32)
[2019-09-01] MEDS: METOCLOPRAMIDE 10 MG/10 ML UDCUP PO SCH ×2 (08:58→13:15)
[2019-09-01] MEDS: FUROSEMIDE 40 MG TABLET PO SCH (08:58)
[2019-09-01] MEDS: amLODIPine 10 MG TABLET PO SCH (08:58)
[2019-09-01] MEDS ORDERED: PANTOPRAZOLE 40 MG TABLET PO SCH (09:00)
[2019-09-01 10:36] LABS: Hematocrit 25.2 VOL% (35.7-47.0); Hemoglobin 7.6 GM/DL (12.0-16.0)
[2019-09-01] MEDS: DORNASE ALFA 2.5 MG/2.5 ML VIAL RESP TX SCH ×2 (10:38→19:55)
[2019-09-01] MEDS ORDERED: SODIUM CHLORIDE 0.9% 1,000 ML IV PRN (11:32)
[2019-09-01] MEDS: FUROSEMIDE 40 MG/4 ML VIAL IV SCH ×2 (11:47→18:06)
[2019-09-01 11:56] LABS: % Iron Saturation 45.2 % (18-50)
[2019-09-01] MEDS ORDERED: FAMOTIDINE 20 MG/2 ML VIAL IV SCH (12:00)
[2019-09-01 13:05] LABS: Basophils # 0.1 10*3/uL (0.0-0.2); Basophils % 0.7 % (0.0-0.8); Eosinophils # 0.1 10*3/uL (0.0-0.87); Eosinophils % 0.4 % (0.00-10.9); Hematocrit 26.2 VOL% (35.7-47.0); Immature Granulocytes % 2.1 %; Immature Granulocytes Absolute 0.41 #; Mean Corpuscular HGB Conc 30.5 GM/DL (32-36); Mean Corpuscular Volume 91.3 FL (87-102); Mean Platelet Volume 9.7 FL (9.6-12.0); Monocytes % 4.2 % (1.7-12.7); Neutrophils % 67.6 % (38.7-73.9); Platelet Count 501 T/CUMM (130-400); Red Blood Count 2.87 MC/CUMM (3.8-5.5); Red Cell Distribution Width 16.3 % (9.3-17.3)
[2019-09-01 13:21] LABS: Platelet Estimate Increased
[2019-09-01 13:26] LABS: Anisocytosis 1+; Poikilocytosis 1+; Target Cells Few
[2019-09-01 13:27] LABS: Burr Cells Few
[2019-09-01 13:38] LABS: Folate 11.8 NG/ML (5.4-24.0); Vitamin B12 696 PG/ML (211-911)
[2019-09-01 14:11] LABS: Sedimentation Rate-Westergren 44 MM/HR (0-20)
[2019-09-01] MEDS: METOCLOPRAMIDE 10 MG/2 ML VIAL IV SCH (18:06)
[2019-09-01 19:04] LABS: Apearance,Urine CLEAR (Clear); Bacteria,Urine Occasional /HPF (Few); Bilirubin,Urine Negative (Negative); Blood, Urine Negative (Negative); Glucose,Urine (UA) 150 mg/dL (Negative); Hyaline Casts,Urine 3 /LPF (0-3); Ketones,Urine Negative (Negative); Nitrite,Urine Negative (Negative); Protein,Urine 100 MG/DL; RBC,Urine 3 /HPF (0-4); Squamous Epithelial Cell,Urine Occasional /HPF (0-10); Urine Color Straw (Yellow); Urine Urobilinogen < 2.0 EU/DL (0.2-1.0); WBC,Urine 1 /HPF (0-6)
[2019-09-01 19:15] LABS: Protein/Creatinine Ratio,Urine 18.9 RATIO
[2019-09-01] MEDS: PANTOPRAZOLE 40 MG TABLET PO SCH (20:32)
[2019-09-01] MEDS: MIRTAZAPINE 15 MG TABLET PO SCH (20:33)
[2019-09-01] MEDS: ACETAMINOPHEN 325 MG TABLET PO PRN (20:34)
[2019-09-02] MEDS: ALBUTEROL/IPRATROPIUM 3 ML NEB RESP TX SCH ×4 (01:27→19:56)
[2019-09-02] MEDS: METOCLOPRAMIDE 10 MG/2 ML VIAL IV SCH ×2 (01:54→05:31)
[2019-09-02] MEDS: ALBUMIN 25% 25 GM in PREMIX 1 EACH IV SCH (01:54)
[2019-09-02] MEDS: PIPERACILLIN/TAZOBACTAM 3,375 MG in SODIUM CHLORIDE 0.9% 100 ML IV SCH ×3 (01:59→17:59)
[2019-09-02 04:52] LABS: Basophils # 0.1 10*3/uL (0.0-0.2); Basophils % 0.9 % (0.0-0.8); Eosinophils # 0.3 10*3/uL (0.0-0.87); Eosinophils % 1.7 % (0.00-10.9); Hematocrit 27.9 VOL% (35.7-47.0); Hemoglobin 8.8 GM/DL (12.0-16.0); Immature Granulocytes % 3.3 %; Immature Granulocytes Absolute 0.54 #; Lymphocytes # 6.2 10*3/uL (1.4-4.0); Lymphocytes % 37.7 % (21.3-54.2); Mean Corpuscular HGB Conc 31.5 GM/DL (32-36); Mean Corpuscular Volume 88.9 FL (87-102); Mean Platelet Volume 9.5 FL (9.6-12.0); Monocytes % 7.3 % (1.7-12.7); Neutrophils % 49.1 % (38.7-73.9); Platelet Count 437 T/CUMM (130-400); Red Blood Count 3.14 MC/CUMM (3.8-5.5); Red Cell Distribution Width 16.4 % (9.3-17.3); White Blood Count 16.4 T/CUMM (4-12)
[2019-09-02 05:17] LABS: Eosinophils 3 % (0-10); Lymphocytes 33 % (20-55); Segmented Neutrophils 56 % (50-85); Total Cells Counted 100
[2019-09-02 05:18] LABS: Hypochromasia 1+; Ovalocytes Slight; Platelet Estimate Adequate
[2019-09-02 05:22] LABS: Calcium 7.4 MG/DL (8.5-10.1); Osmolality,Calculated 291.3 MOS/KG (273-304)
[2019-09-02 05:37] LABS: Protein/Creatinine Ratio,Urine 21.8 RATIO
[2019-09-02] MEDS: LACTATED RINGERS 1,000 ML IV SCH (06:44)
[2019-09-02] MEDS ORDERED: EPINEPHrine 1 MG/ML VIAL ONE (08:07)
[2019-09-02 08:25] LABS: Albumin (UPER) Rel% 66.6 %; Alpha 1 (UPER) Rel% 7.7 %; Alpha 2 (UPER) Rel % 6.5 %; Beta (UPER) Rel % 8.5 %; Gamma (UPER) Rel % 10.7 %
[2019-09-02] MEDS: DORNASE ALFA 2.5 MG/2.5 ML VIAL RESP TX SCH ×2 (08:28→19:56)
[2019-09-02 08:32] LABS: Albumin (UPER) 223.8 MG/DL; Alpha 1 (UPER) 25.9 MG/DL; Alpha 2 (UPER) 21.8 MG/DL; Beta (UPER) 28.6 MG/DL
[2019-09-02] MEDS: INSULIN REGULAR 100 UNIT/ML SUBCUT SCH ×4 (09:24→21:21)
[2019-09-02] MEDS: FUROSEMIDE 40 MG/4 ML VIAL IV SCH (09:26)
[2019-09-02] MEDS: ISOSORBIDE MONONITRATE 30 MG TABLET PO SCH ×2 (09:31→21:21)
[2019-09-02] MEDS: PANTOPRAZOLE 40 MG TABLET PO SCH ×2 (09:31→21:21)
[2019-09-02] MEDS: amLODIPine 10 MG TABLET PO SCH (09:31)
[2019-09-02] MEDS: GABAPENTIN 400 MG CAPSULE PO SCH ×3 (09:31→21:21)
[2019-09-02] MEDS: AZITHROMYCIN 40 MG/ML 15 ML/BOTTLE PO SCH (09:32)
[2019-09-02] MEDS ORDERED: ETOMIDATE 20 MG/10 ML VIAL IV ONE (10:00)
[2019-09-02] MEDS ORDERED: LIDOCAINE 2% 5 ML VIAL ONE (10:00)
[2019-09-02] MEDS ORDERED: PROPOFOL 200 MG/20 ML VIAL IV ONE (10:00)
[2019-09-02] MEDS ORDERED: ESMOLOL 100 MG/10 ML VIAL IV ONE (10:00)
[2019-09-02] MEDS ORDERED: MORPHINE 4 MG/1 ML VIAL IV PRN ×2 (11:26→15:59)
[2019-09-02] MEDS: FUROSEMIDE 40 MG TABLET PO SCH (16:20)
[2019-09-02] MEDS ORDERED: SKIN HEALING OINT (AQUAPHOR) 50 GM TUBE TOP PRN (16:23)
[2019-09-02] MEDS: MIRTAZAPINE 15 MG TABLET PO SCH (21:21)
[2019-09-02] MEDS: oxyCODONE/ACETAMINOPHEN 5-325 MG TABLET PO PRN (21:22)
[2019-09-03] MEDS: PIPERACILLIN/TAZOBACTAM 3,375 MG in SODIUM CHLORIDE 0.9% 100 ML IV SCH (00:45)
[2019-09-03] MEDS: ALBUTEROL/IPRATROPIUM 3 ML NEB RESP TX SCH ×4 (01:27→19:54)
[2019-09-03] MEDS: oxyCODONE/ACETAMINOPHEN 5-325 MG TABLET PO PRN ×3 (04:03→19:29)
[2019-09-03 05:10] LABS: Basophils # 0.1 10*3/uL (0.0-0.2); Basophils % 0.7 % (0.0-0.8); Eosinophils # 0.4 10*3/uL (0.0-0.87); Eosinophils % 2.2 % (0.00-10.9); Hematocrit 29.7 VOL% (35.7-47.0); Hemoglobin 9.5 GM/DL (12.0-16.0); Immature Granulocytes Absolute 0.33 #; Lymphocytes # 6.1 10*3/uL (1.4-4.0); Lymphocytes % 37.7 % (21.3-54.2); Mean Corpuscular Volume 87.1 FL (87-102); Mean Platelet Volume 9.7 FL (9.6-12.0); Monocytes % 7.2 % (1.7-12.7); Neutrophils % 50.2 % (38.7-73.9); Platelet Count 465 T/CUMM (130-400); Red Blood Count 3.41 MC/CUMM (3.8-5.5); Red Cell Distribution Width 16.6 % (9.3-17.3); White Blood Count 16.2 T/CUMM (4-12)
[2019-09-03 05:30] LABS: Alanine Aminotransferase 35 U/L (13-56); Alkaline Phosphatase 78 U/L (45-117); Aspartate Amino Transferase 9 U/L (0-37); Bilirubin,Total < 0.39 MG/DL (0.2-1.0); Blood Urea Nitrogen 31 MG/DL (7-18); Calcium 7.6 MG/DL (8.5-10.1); Estimated Glom Filtration Rate 30 ML/MIN; Glucose 128 MG/DL (74-106); Osmolality,Calculated 287.4 MOS/KG (273-304); Total Protein 4.9 G/DL (6.4-8.3)
[2019-09-03] MEDS: DORNASE ALFA 2.5 MG/2.5 ML VIAL RESP TX SCH ×2 (07:37→19:54)
[2019-09-03] MEDS: FUROSEMIDE 40 MG TABLET PO SCH ×2 (09:25→16:54)
[2019-09-03] MEDS: GABAPENTIN 400 MG CAPSULE PO SCH ×3 (09:25→21:40)
[2019-09-03] MEDS: PANTOPRAZOLE 40 MG TABLET PO SCH ×2 (09:25→21:41)
[2019-09-03] MEDS: INSULIN REGULAR 100 UNIT/ML SUBCUT SCH ×4 (09:25→21:41)
[2019-09-03] MEDS: ISOSORBIDE MONONITRATE 30 MG TABLET PO SCH ×2 (09:25→21:40)
[2019-09-03] MEDS: amLODIPine 10 MG TABLET PO SCH (09:25)
[2019-09-03] MEDS: AZITHROMYCIN 40 MG/ML 15 ML/BOTTLE PO SCH (09:26)
[2019-09-03] MEDS: LINEZOLID INJ 600 MG in PREMIX 1 EACH IV SCH ×2 (09:34→21:45)
[2019-09-03] MEDS: MORPHINE 4 MG/1 ML VIAL IV PRN ×2 (14:28→23:29)
[2019-09-03] MEDS: MIRTAZAPINE 15 MG TABLET PO SCH (21:40)
[2019-09-03] MEDS: traZODone 50 MG TABLET PO PRN (21:40)
[2019-09-04] MEDS: ALBUTEROL/IPRATROPIUM 3 ML NEB RESP TX SCH ×4 (01:00→18:51)
[2019-09-04] MEDS: oxyCODONE/ACETAMINOPHEN 5-325 MG TABLET PO PRN ×2 (04:19→15:49)
[2019-09-04 04:46] LABS: Basophils # 0.1 10*3/uL (0.0-0.2); Basophils % 1.1 % (0.0-0.8); Eosinophils # 0.4 10*3/uL (0.0-0.87); Eosinophils % 2.6 % (0.00-10.9); Hematocrit 29.2 VOL% (35.7-47.0); Hemoglobin 9.4 GM/DL (12.0-16.0); Immature Granulocytes % 1.2 %; Immature Granulocytes Absolute 0.16 #; Lymphocytes # 5.1 10*3/uL (1.4-4.0); Lymphocytes % 38.4 % (21.3-54.2); Mean Corpuscular HGB Conc 32.2 GM/DL (32-36); Mean Corpuscular Volume 86.4 FL (87-102); Mean Platelet Volume 10.1 FL (9.6-12.0); Monocytes % 6.6 % (1.7-12.7); Neutrophils % 50.1 % (38.7-73.9); Platelet Count 459 T/CUMM (130-400); Red Blood Count 3.38 MC/CUMM (3.8-5.5); Red Cell Distribution Width 16.4 % (9.3-17.3); White Blood Count 13.2 T/CUMM (4-12)
[2019-09-04 04:54] LABS: Calcium 7.7 MG/DL (8.5-10.1); Osmolality,Calculated 284.5 MOS/KG (273-304)
[2019-09-04] MEDS: DORNASE ALFA 2.5 MG/2.5 ML VIAL RESP TX SCH ×2 (07:09→18:58)
[2019-09-04] MEDS ORDERED: MAGNESIUM SULF RIDER 2 GM in PREMIX 1 EACH IV ONE (07:27)
[2019-09-04] MEDS ORDERED: ALBUMIN 25% 25 GM in PREMIX 1 EACH IV ONE (07:51)
[2019-09-04] MEDS ORDERED: FUROSEMIDE 40 MG/4 ML VIAL IV ONE (07:52)
[2019-09-04] MEDS: MORPHINE 4 MG/1 ML VIAL IV PRN ×2 (09:20→20:56)
[2019-09-04] MEDS: PANTOPRAZOLE 40 MG TABLET PO SCH ×2 (09:21→20:56)
[2019-09-04] MEDS: GABAPENTIN 400 MG CAPSULE PO SCH ×3 (09:21→20:56)
[2019-09-04] MEDS: INSULIN REGULAR 100 UNIT/ML SUBCUT SCH ×4 (09:22→20:56)
[2019-09-04] MEDS: ISOSORBIDE MONONITRATE 30 MG TABLET PO SCH ×2 (09:22→20:55)
[2019-09-04] MEDS: amLODIPine 10 MG TABLET PO SCH (09:22)
[2019-09-04] MEDS: LACTATED RINGERS 1,000 ML IV SCH (09:23)
[2019-09-04] MEDS: AZITHROMYCIN 40 MG/ML 15 ML/BOTTLE PO SCH (09:28)
[2019-09-04] MEDS: LINEZOLID INJ 600 MG in PREMIX 1 EACH IV SCH ×2 (12:24→22:12)
[2019-09-04] MEDS: PROMETHAZINE 25 MG/1 ML VIAL IM PRN ×2 (12:30→22:21)
[2019-09-04 13:57] LABS: Hematocrit 31.6 VOL% (35.7-47.0); Hemoglobin 10.1 GM/DL (12.0-16.0)
[2019-09-04 18:53] LABS: Hematocrit 29.4 VOL% (35.7-47.0); Hemoglobin 9.4 GM/DL (12.0-16.0)
[2019-09-04] MEDS: traZODone 50 MG TABLET PO PRN (20:55)
[2019-09-04] MEDS: MIRTAZAPINE 15 MG TABLET PO SCH (20:56)
[2019-09-05] MEDS: ALBUTEROL/IPRATROPIUM 3 ML NEB RESP TX SCH ×3 (00:25→14:22)
[2019-09-05] MEDS: oxyCODONE/ACETAMINOPHEN 5-325 MG TABLET PO PRN ×2 (02:18→10:55)
[2019-09-05 05:07] LABS: Basophils # 0.1 10*3/uL (0.0-0.2); Basophils % 0.7 % (0.0-0.8); Eosinophils # 0.3 10*3/uL (0.0-0.87); Eosinophils % 2.6 % (0.00-10.9); Hematocrit 26.7 VOL% (35.7-47.0); Hemoglobin 8.6 GM/DL (12.0-16.0); Immature Granulocytes % 0.7 %; Immature Granulocytes Absolute 0.09 #; Lymphocytes # 4.7 10*3/uL (1.4-4.0); Lymphocytes % 35.6 % (21.3-54.2); Mean Corpuscular HGB Conc 32.2 GM/DL (32-36); Mean Platelet Volume 9.8 FL (9.6-12.0); Monocytes % 5.9 % (1.7-12.7); Neutrophils % 54.5 % (38.7-73.9); Platelet Count 404 T/CUMM (130-400); Red Blood Count 3.07 MC/CUMM (3.8-5.5); Red Cell Distribution Width 16.4 % (9.3-17.3); White Blood Count 13.2 T/CUMM (4-12)
[2019-09-05 05:21] LABS: Calcium 7.8 MG/DL (8.5-10.1)
[2019-09-05] MEDS: MORPHINE 4 MG/1 ML VIAL IV PRN (07:06)
[2019-09-05] MEDS: DORNASE ALFA 2.5 MG/2.5 ML VIAL RESP TX SCH (07:34)
[2019-09-05] MEDS: INSULIN REGULAR 100 UNIT/ML SUBCUT SCH ×3 (07:47→16:36)
[2019-09-05] MEDS: LACTATED RINGERS 1,000 ML IV SCH (08:51)
[2019-09-05] MEDS: PANTOPRAZOLE 40 MG TABLET PO SCH (09:49)
[2019-09-05] MEDS: GABAPENTIN 400 MG CAPSULE PO SCH ×2 (09:49→15:14)
[2019-09-05] MEDS: ISOSORBIDE MONONITRATE 30 MG TABLET PO SCH (09:50)
[2019-09-05] MEDS: amLODIPine 10 MG TABLET PO SCH (09:50)
[2019-09-05] MEDS: AZITHROMYCIN 40 MG/ML 15 ML/BOTTLE PO SCH (09:50)
[2019-09-05 10:06] LABS: Hemoglobin A1 (Alkaline) 98.3 % (96.5-98.5); Hemoglobin A2 (Alkaline) 1.7 % (1.5-3.5)
[2019-09-05] MEDS: LINEZOLID INJ 600 MG in PREMIX 1 EACH IV SCH (10:54)
[2019-09-05] MEDS ORDERED: PROMETHAZINE INJ 25 MG in SODIUM CHLORIDE 0.9% 50 ML IV PRN (12:01)
[2019-09-05] MEDS ORDERED: PROMETHAZINE 25 MG/1 ML VIAL IM PRN (12:02)
[2019-09-05 12:19] VITALS: BP 161/87
[2019-09-05] MEDS: ACETAMINOPHEN 325 MG TABLET PO PRN (15:14)
== END 2019-09-05 17:40 | disposition home or self-care (01) | DRG 368 ==
LOC: EDUNIT# → EDBD → N.ED 12:47 → N.EDINP 12:47 → N.5E 16:37
PROVIDERS: ADMIT Internal Medicine; ATTEND Internal Medicine

== ENCOUNTER 2019-12-11 12:55 | Inpatient (IN) ==
[2019-12-11] MEDS ORDERED: ONDANSETRON 4 MG/2 ML VIAL IV STA (13:08)
[2019-12-11] MEDS ORDERED: MORPHINE 4 MG/1 ML VIAL IV STA (13:08)
[2019-12-11] MEDS ORDERED: NITROGLYCERIN SL 0.4 MG TABLET SL PRN (13:08)
[2019-12-11 14:02] LABS: Basophils # 0.1 10*3/uL (0.0-0.2); Basophils % 0.4 % (0.0-0.8); Eosinophils % 0.3 % (0.00-10.9); Hematocrit 30.6 VOL% (35.7-47.0); Immature Granulocytes % 0.4 %; Immature Granulocytes Absolute 0.05 #; Lymphocytes # 4.7 10*3/uL (1.4-4.0); Lymphocytes % 36.9 % (21.3-54.2); Mean Corpuscular HGB Conc 32.7 GM/DL (32-36); Mean Corpuscular Volume 86.4 FL (87-102); Mean Platelet Volume 11.4 FL (9.6-12.0); Monocytes % 2.7 % (1.7-12.7); Neutrophils % 59.3 % (38.7-73.9); Platelet Count 461 T/CUMM (130-400); Red Blood Count 3.54 MC/CUMM (3.8-5.5); Red Cell Distribution Width 18.3 % (9.3-17.3); White Blood Count 12.8 T/CUMM (4-12)
[2019-12-11 14:14] LABS: PT Patient Result 10.8 SECS (9.6-12.2)
[2019-12-11 14:16] LABS: Calcium 7.5 MG/DL (8.5-10.1); Osmolality,Calculated 282.8 MOS/KG (273-304)
[2019-12-11] MEDS ORDERED: ENOXAPARIN 30 MG/0.3 ML SYRINGE SUBCUT STA (15:28)
[2019-12-11] MEDS ORDERED: FUROSEMIDE 40 MG/4 ML VIAL IV STA (15:28)
[2019-12-11] MEDS ORDERED: FUROSEMIDE 100 MG/10 ML VIAL ONE (15:29)
[2019-12-11] MEDS ORDERED: ENOXAPARIN 30 MG/0.3 ML SYRINGE ONE (15:29)
[2019-12-11] MEDS ORDERED: NITROGLYCERIN 2% OINT 1 INCH/GM PACK TOP ONE (15:29)
[2019-12-11] MEDS ORDERED: NICOTINE 21 MG/24 HR PATCH TRANSDERM PRN (16:40)
[2019-12-11] MEDS ORDERED: ACETAMINOPHEN 325 MG TABLET PO PRN (16:40)
[2019-12-11] MEDS ORDERED: ONDANSETRON 4 MG/2 ML VIAL IV PRN (16:40)
[2019-12-11] MEDS ORDERED: GLUCAGON 1 MG VIAL IM PRN (16:40)
[2019-12-11] MEDS ORDERED: DEXTROSE 50% 25 GM/50 ML VIAL IV PRN (16:40)
[2019-12-11] MEDS ORDERED: BISACODYL 5 MG TABLET PO PRN (16:40)
[2019-12-11 17:04] LABS: Alanine Aminotransferase < 9 U/L (13-56); Albumin 1.2 G/DL (3.4-5.0); Alkaline Phosphatase 309 U/L (45-117); Aspartate Amino Transferase 17 U/L (0-37); Bilirubin,Direct < 0.100 MG/DL (0.0-0.20); Bilirubin,Indirect 0.3 MG/DL (0.0-1.0); Bilirubin,Total < 0.39 MG/DL (0.2-1.0); Total Protein 5.9 G/DL (6.4-8.3)
[2019-12-11] MEDS: MORPHINE 4 MG/1 ML VIAL IV PRN ×2 (17:05→22:36)
[2019-12-11 17:16] LABS: Risk Ratio 4.6; Thyroid Stimulating Hormone 3.46 uIU/ml (0.358-3.74); VLDL CHOLESTEROL 68.2 MG/DL
[2019-12-11] MEDS ORDERED: ENOXAPARIN 60 MG/0.6 ML SYRINGE SUBCUT ONE (17:23)
[2019-12-11] MEDS: INSULIN LISPRO 100 UNIT/ML SUBCUT SCH (21:47)
[2019-12-11] MEDS: GABAPENTIN 400 MG CAPSULE PO SCH (22:34)
[2019-12-11] MEDS: METOPROLOL TARTRATE 25 MG TABLET PO SCH (22:34)
[2019-12-12] MEDS ORDERED: INFLUENZA VIRUS VACCINE 0.5 ML SYRINGE IM ONE (00:01)
[2019-12-12] MEDS: MORPHINE 4 MG/1 ML VIAL IV PRN ×4 (02:37→21:22)
[2019-12-12] MEDS ORDERED: ENOXAPARIN 80 MG/0.8 ML SYRINGE SUBCUT SCH (05:00)
[2019-12-12 05:17] LABS: Basophils # 0.1 10*3/uL (0.0-0.2); Basophils % 0.5 % (0.0-0.8); Eosinophils # 0.1 10*3/uL (0.0-0.87); Eosinophils % 0.8 % (0.00-10.9); Hematocrit 26.4 VOL% (35.7-47.0); Hemoglobin 8.5 GM/DL (12.0-16.0); Immature Granulocytes % 0.5 %; Immature Granulocytes Absolute 0.05 #; Lymphocytes # 4.5 10*3/uL (1.4-4.0); Lymphocytes % 44.4 % (21.3-54.2); Mean Corpuscular HGB Conc 32.2 GM/DL (32-36); Mean Corpuscular Volume 87.7 FL (87-102); Mean Platelet Volume 11.8 FL (9.6-12.0); Neutrophils % 49.8 % (38.7-73.9); Platelet Count 382 T/CUMM (130-400); Red Blood Count 3.01 MC/CUMM (3.8-5.5); Red Cell Distribution Width 18.6 % (9.3-17.3); White Blood Count 10.1 T/CUMM (4-12)
[2019-12-12 05:47] LABS: Calcium 6.9 MG/DL (8.5-10.1); Osmolality,Calculated 287.4 MOS/KG (273-304)
[2019-12-12] MEDS ORDERED: PANTOPRAZOLE 40 MG TABLET PO SCH (09:00)
[2019-12-12] MEDS: FUROSEMIDE 40 MG/4 ML VIAL IV SCH ×2 (09:03→16:50)
[2019-12-12] MEDS: INSULIN LISPRO 100 UNIT/ML SUBCUT SCH ×4 (09:03→21:21)
[2019-12-12] MEDS: DULoxetine 30 MG CAPSULE PO SCH (09:07)
[2019-12-12] MEDS: METOPROLOL TARTRATE 25 MG TABLET PO SCH ×2 (09:07→21:20)
[2019-12-12] MEDS: lisinopriL 5 MG TABLET PO SCH (09:07)
[2019-12-12] MEDS: GABAPENTIN 400 MG CAPSULE PO SCH ×3 (09:07→21:20)
[2019-12-12] MEDS: ASPIRIN CHEW 81 MG TABLET PO SCH (09:07)
[2019-12-12] MEDS: VILAZODONE 20 MG PO SCH (09:08)
[2019-12-12] MEDS ORDERED: MAGNESIUM SULF RIDER 4 GM in PREMIX 1 EACH IV ONE (13:59)
[2019-12-12] MEDS ORDERED: ENOXAPARIN 30 MG/0.3 ML SYRINGE SUBCUT SCH (15:00)
[2019-12-12] MEDS ORDERED: TUBERCULIN SKIN TEST 0.1 ML SYRINGE INTRADERM ONE (15:25)
[2019-12-12] MEDS: METOCLOPRAMIDE 10 MG/2 ML VIAL IV SCH (18:35)
[2019-12-12] MEDS: PANTOPRAZOLE 40 MG TABLET PO SCH (21:20)
[2019-12-12] MEDS ORDERED: GABAPENTIN 600 MG TABLET PO SCH (22:00)
[2019-12-13] MEDS: METOCLOPRAMIDE 10 MG/2 ML VIAL IV SCH ×3 (00:53→12:32)
[2019-12-13] MEDS: hydrALAZINE 20 MG/1 ML VIAL IV PRN (01:19)
[2019-12-13] MEDS: MORPHINE 4 MG/1 ML VIAL IV PRN ×4 (03:33→22:05)
[2019-12-13 06:49] LABS: Basophils # 0.1 10*3/uL (0.0-0.2); Basophils % 0.6 % (0.0-0.8); Eosinophils # 0.2 10*3/uL (0.0-0.87); Eosinophils % 1.7 % (0.00-10.9); Hematocrit 26.6 VOL% (35.7-47.0); Hemoglobin 8.4 GM/DL (12.0-16.0); Immature Granulocytes % 0.3 %; Immature Granulocytes Absolute 0.04 #; Lymphocytes # 4.6 10*3/uL (1.4-4.0); Lymphocytes % 40.3 % (21.3-54.2); Mean Corpuscular HGB Conc 31.6 GM/DL (32-36); Mean Corpuscular Volume 88.1 FL (87-102); Mean Platelet Volume 11.9 FL (9.6-12.0); Monocytes % 3.5 % (1.7-12.7); Neutrophils % 53.6 % (38.7-73.9); Platelet Count 361 T/CUMM (130-400); Red Blood Count 3.02 MC/CUMM (3.8-5.5); Red Cell Distribution Width 18.6 % (9.3-17.3); White Blood Count 11.5 T/CUMM (4-12)
[2019-12-13 07:03] LABS: Calcium 6.9 MG/DL (8.5-10.1); Osmolality,Calculated 280.7 MOS/KG (273-304)
[2019-12-13] MEDS: INSULIN LISPRO 100 UNIT/ML SUBCUT SCH ×4 (08:28→22:09)
[2019-12-13] MEDS: VILAZODONE 20 MG PO SCH (08:30)
[2019-12-13] MEDS ORDERED: ENOXAPARIN 30 MG/0.3 ML SYRINGE SUBCUT SCH (09:00)
[2019-12-13] MEDS: FUROSEMIDE 40 MG/4 ML VIAL IV SCH ×2 (09:36→15:36)
[2019-12-13] MEDS: METOPROLOL TARTRATE 25 MG TABLET PO SCH ×2 (09:37→22:02)
[2019-12-13] MEDS: PANTOPRAZOLE 40 MG TABLET PO SCH ×2 (09:37→22:02)
[2019-12-13] MEDS: metOLazone 5 MG TABLET PO SCH (09:37)
[2019-12-13] MEDS: hydrALAZINE 25 MG TABLET PO SCH ×3 (09:37→22:02)
[2019-12-13] MEDS: DULoxetine 30 MG CAPSULE PO SCH (09:37)
[2019-12-13] MEDS: GABAPENTIN 400 MG CAPSULE PO SCH ×3 (09:37→22:02)
[2019-12-13] MEDS: lisinopriL 5 MG TABLET PO SCH (09:37)
[2019-12-13] MEDS: ASPIRIN CHEW 81 MG TABLET PO SCH (09:38)
[2019-12-13] MEDS: METOCLOPRAMIDE 10 MG/10 ML UDCUP PO SCH ×2 (16:40→22:10)
[2019-12-14] MEDS: MORPHINE 4 MG/1 ML VIAL IV PRN ×4 (03:57→22:22)
[2019-12-14 04:54] LABS: Basophils # 0.1 10*3/uL (0.0-0.2); Basophils % 0.8 % (0.0-0.8); Eosinophils # 0.2 10*3/uL (0.0-0.87); Eosinophils % 1.4 % (0.00-10.9); Hematocrit 24.9 VOL% (35.7-47.0); Hemoglobin 8.1 GM/DL (12.0-16.0); Immature Granulocytes % 0.3 %; Immature Granulocytes Absolute 0.04 #; Lymphocytes # 4.9 10*3/uL (1.4-4.0); Lymphocytes % 41.3 % (21.3-54.2); Mean Corpuscular HGB Conc 32.5 GM/DL (32-36); Mean Corpuscular Volume 88.3 FL (87-102); Mean Platelet Volume 11.5 FL (9.6-12.0); Monocytes % 3.9 % (1.7-12.7); Neutrophils % 52.3 % (38.7-73.9); Platelet Count 412 T/CUMM (130-400); Red Blood Count 2.82 MC/CUMM (3.8-5.5); Red Cell Distribution Width 18.4 % (9.3-17.3); White Blood Count 11.9 T/CUMM (4-12)
[2019-12-14 05:05] LABS: Calcium 6.8 MG/DL (8.5-10.1); Osmolality,Calculated 277.8 MOS/KG (273-304)
[2019-12-14] MEDS: SODIUM CHLORIDE 0.9% 1,000 ML IV SCH (08:14)
[2019-12-14] MEDS ORDERED: FUROSEMIDE 20 MG/2 ML VIAL IV PRN (08:25)
[2019-12-14] MEDS ORDERED: SODIUM CHLORIDE 0.9% 1,000 ML IV PRN (08:25)
[2019-12-14] MEDS ORDERED: ETOMIDATE 20 MG/10 ML VIAL IV ONE (09:00)
[2019-12-14] MEDS ORDERED: propofoL 200 MG/20 ML VIAL IV ONE (09:00)
[2019-12-14] MEDS ORDERED: LIDOCAINE 2% 5 ML VIAL ONE (09:00)
[2019-12-14] MEDS: INSULIN LISPRO 100 UNIT/ML SUBCUT SCH ×4 (09:39→21:21)
[2019-12-14] MEDS: METOCLOPRAMIDE 10 MG/10 ML UDCUP PO SCH ×4 (09:40→21:21)
[2019-12-14] MEDS: DULoxetine 30 MG CAPSULE PO SCH (09:41)
[2019-12-14] MEDS: lisinopriL 5 MG TABLET PO SCH (09:41)
[2019-12-14] MEDS: PANTOPRAZOLE 40 MG TABLET PO SCH ×2 (09:41→21:22)
[2019-12-14] MEDS: hydrALAZINE 25 MG TABLET PO SCH (09:41)
[2019-12-14] MEDS: ASPIRIN CHEW 81 MG TABLET PO SCH (09:41)
[2019-12-14] MEDS: GABAPENTIN 400 MG CAPSULE PO SCH ×3 (09:41→21:22)
[2019-12-14] MEDS: FUROSEMIDE 40 MG/4 ML VIAL IV SCH ×2 (09:42→17:56)
[2019-12-14] MEDS: METOPROLOL TARTRATE 25 MG TABLET PO SCH ×2 (09:42→21:22)
[2019-12-14] MEDS: metOLazone 5 MG TABLET PO SCH (09:43)
[2019-12-14] MEDS: VILAZODONE 20 MG PO SCH (09:48)
[2019-12-14] MEDS ORDERED: traMADol 50 MG TABLET PO PRN (12:55)
[2019-12-15] MEDS: hydrALAZINE 20 MG/1 ML VIAL IV PRN (01:53)
[2019-12-15] MEDS: MORPHINE 4 MG/1 ML VIAL IV PRN ×2 (05:54→11:07)
[2019-12-15] MEDS: SODIUM CHLORIDE 0.9% 1,000 ML IV SCH (07:28)
[2019-12-15] MEDS: INSULIN LISPRO 100 UNIT/ML SUBCUT SCH (07:29)
[2019-12-15] MEDS: METOCLOPRAMIDE 10 MG/10 ML UDCUP PO SCH (07:57)
[2019-12-15] MEDS: FUROSEMIDE 40 MG/4 ML VIAL IV SCH (07:57)
[2019-12-15] MEDS: ASPIRIN CHEW 81 MG TABLET PO SCH (09:24)
[2019-12-15] MEDS: DULoxetine 30 MG CAPSULE PO SCH (09:24)
[2019-12-15] MEDS: METOPROLOL TARTRATE 25 MG TABLET PO SCH (09:24)
[2019-12-15] MEDS: PANTOPRAZOLE 40 MG TABLET PO SCH (09:25)
[2019-12-15] MEDS: lisinopriL 5 MG TABLET PO SCH (09:25)
[2019-12-15] MEDS: GABAPENTIN 400 MG CAPSULE PO SCH (09:25)
[2019-12-15] MEDS: metOLazone 5 MG TABLET PO SCH (09:25)
[2019-12-15 09:29] LABS: Basophils # 0.1 10*3/uL (0.0-0.2); Basophils % 0.6 % (0.0-0.8); Eosinophils # 0.2 10*3/uL (0.0-0.87); Eosinophils % 1.3 % (0.00-10.9); Hematocrit 35.5 VOL% (35.7-47.0); Immature Granulocytes % 0.4 %; Immature Granulocytes Absolute 0.05 #; Lymphocytes # 3.1 10*3/uL (1.4-4.0); Lymphocytes % 25.2 % (21.3-54.2); Mean Corpuscular HGB Conc 33.2 GM/DL (32-36); Mean Corpuscular Volume 86.8 FL (87-102); Mean Platelet Volume 10.7 FL (9.6-12.0); Monocytes % 3.6 % (1.7-12.7); Neutrophils % 68.9 % (38.7-73.9); Platelet Count 436 T/CUMM (130-400); Red Cell Distribution Width 16.8 % (9.3-17.3); White Blood Count 12.3 T/CUMM (4-12)
[2019-12-15] MEDS: VILAZODONE 20 MG PO SCH (09:30)
[2019-12-15 09:33] LABS: Red Blood Count 4.09 MC/CUMM (3.8-5.5)
[2019-12-15 09:34] LABS: Hemoglobin 11.8 GM/DL (12.0-16.0)
[2019-12-15] MEDS ORDERED: PNEUMOCOCCAL VACCINE (13 VALENT) 0.5 ML SYRINGE IM ONE (11:22)
[2019-12-15 13:04] VITALS: BP 186/106
== END 2019-12-15 14:53 | disposition home or self-care (01) | DRG 194 ==
LOC: EDUNIT# → EDBD → N.ED 12:55 → SUATTDRO 16:34 → N.EDINP 16:34 → N.TELES 16:55
PROVIDERS: ADMIT Phlebology; ATTEND Emergency Medicine